=== PATIENT | male | born 1955 ===

== ENCOUNTER 2018-08-16 07:01 | Inpatient (IN) | payer OTHER ==
[2018-08-16 08:03] LABS: VENOUS BLOOD GAS BASE EXCESS -1.4 mmol/L (0.0-2.0); VENOUS BLOOD GAS PCO2 36 mmHg (40-60); VENOUS BLOOD GAS PO2 47 mm/Hg (30-55); VENOUS BLOOD PH 7.41 (7.32-7.43)
[2018-08-16] MEDS ORDERED: Iohexol 300 100 ML IJ ONE (08:10)
[2018-08-16] MEDS ORDERED: Sodium Chloride 0.9% 50 ML IV ONE (08:11)
[2018-08-16 08:15] LABS: BASO % 0.2 % (0.0-2.0); EOS % 0.4 % (0.0-4.0); HEMOGLOBIN 14.2 g/dL (12.0-18.0); LYMPH # 0.7 K/uL (1.0-4.3); LYMPH % 11.4 % (20.0-40.0); MEAN CORPUSCULAR HEMOGLOBIN 28.5 pg (27.0-31.0); MEAN CORPUSCULAR HGB CONC 32.7 g/dL (33.0-37.0); MEAN PLATELET VOLUME 8.9 fl (7.2-11.7); MONO # 0.1 K/uL (0.0-0.8); MONO % 1.4 % (0.0-10.0); NEUT # 5.2 K/uL (1.8-7.0); NEUT % 86.6 % (50.0-75.0); NRBC % 0.1 % (0.0-0.0); RBC 4.98 Mil/uL (4.40-5.90); RED CELL DISTRIBUTION WIDTH 16.3 % (11.5-14.5)
[2018-08-16 08:23] LABS: ALB/GLOB RATIO 1.2 (1.0-2.1); ALBUMIN 4.1 g/dL (3.5-5.0); ALT/SGPT 62 U/L (21-72); AST/SGOT 126 U/L (17-59); BLOOD UREA NITROGEN 18 mg/dl (9-20); CALCIUM 8.8 mg/dL (8.4-10.2); GFR NON-AFRICAN AMERICAN 56; LIPASE 105 U/L (23-300)
--- NOTE | 2018-08-16 08:24 | RAD ---
Date of service: 08/16/2018 HISTORY: Sepsis Patient COMPARISON: No prior. FINDINGS: LUNGS: No active pulmonary disease. PLEURA: No significant pleural effusion identified, no pneumothorax apparent. CARDIOVASCULAR: Calcific atherosclerotic changes are seen related to the thoracic aorta. Mild cardiomegaly not excluded. Increased hilar vascular markings as well as linear changes in the perihilar distributions are suspicious for [id number] pulmonary vascular congestion. Clinically correlate further. OSSEOUS STRUCTURES: No significant abnormalities. VISUALIZED UPPER ABDOMEN: Normal. OTHER FINDINGS: None. IMPRESSION: [id number] pulmonary vascular congestion suspected. No definite airspace disease bilaterally. Cardiomegaly not excluded.
[2018-08-16 08:26] LABS: INR 1.2; PROTHROMBIN TIME 13.8 Seconds (9.8-13.1)
[2018-08-16 08:28] LABS: PARTIAL THROMBOPLASTIN TIME 26.1 Seconds (25.6-37.1)
[2018-08-16] MEDS ORDERED: cefTRIAXone (Rocephin) 1 gm Inj ONE (08:33)
[2018-08-16 08:34] LABS: B-TYPE NATRIURETIC PEPTIDE 1900 pg/ml (0-900)
[2018-08-16] MEDS: Digoxin 500 mcg/2ml (0.5 mg/2ml) Inj IVP ONE ×2 (08:37→10:48)
--- NOTE | 2018-08-16 08:42 | CARD ---
APPROVED REPORT Date of service: 08/16/2018 EKG Measurement Heart [id number] <Conclusion> Atrial fibrillation with rapid ventricular response Baseline artifact Possible Anterolateral infarct, age undetermined Abnormal ECG
[2018-08-16] MEDS ORDERED: Piperacillin/Tazobact 3.375 GM in Sodium Chloride 0.9% 100 ML IVPB ONE (08:45)
[2018-08-16] MEDS ORDERED: Digoxin 500 mcg/2ml (0.5 mg/2ml) Inj IVP ONE (09:00)
[2018-08-16] MEDS ORDERED: Moxifloxacin IV 400mg/250ml NS 400 MG/250 ML BAG IVPB ONE (09:00)
--- NOTE | 2018-08-16 10:05 | CT ---
Date of service: 08/16/2018 PROCEDURE: CT Abdomen and Pelvis with contrast HISTORY: abdominal pain lower back pain COMPARISON: None. TECHNIQUE: Following the intravenous administration of iodinated contrast material, a CT examination of the abdomen and pelvis performed from the domes of the diaphragms to the symphysis pubis with reformatted datasets provided in axial, sagittal and coronal planes. Oral contrast was not administered as per referring physician request. Coronal and sagittal reformats were generated. Contrast dose: Omnipaque 300, 100 cc Radiation dose: Total exam DLP = 915.35 mGy-cm. This CT exam was performed using one or more of the following dose reduction techniques: Automated exposure control, adjustment of the mA and/or kV according to patient size, and/or use of iterative reconstruction technique. FINDINGS: LOWER THORAX: Cardiomegaly identified as well as a small hiatal hernia. Coronary artery atherosclerosis identified limited linear atelectasis or fibrosis in the left base. No infiltrate pleural or pericardial effusion identified. LIVER: Unremarkable. No gross lesion or definite ductal dilatation. GALLBLADDER AND BILE DUCTS: Gallbladder is distended with cholelithiasis at the dependent portion mildly. There is questionable pericholecystic fluid and cholecystitis is not excluded. PANCREAS: Unremarkable. No gross lesion or ductal dilatation. SPLEEN: Unremarkable. ADRENALS: Unremarkable. No mass. KIDNEYS AND URETERS: No radiodense urolithiasis, perinephric fluid collection or obstructive uropathy is appreciate bilaterally. The bilateral ureters appear normal caliber overall. Bilateral nonspecific streaky perinephric changes appear mild. VASCULATURE: Nonaneurysmal abdominal aortic calcific atherosclerotic changes are identified. BOWEL: Evaluation of the gastrointestinal tract is limited due to the lack of oral contrast administration. Stomach is mildly distend with retained fluid and air and otherwise appears unremarkable. There a few left colonic and cecal/ascending colon diverticula without acute inflammatory change. No bowel obstruction. No gross mural thickening. APPENDIX: Normal appendix. PERITONEUM: Unremarkable. No free fluid. No free air. LYMPH NODES: Unremarkable. No enlarged lymph nodes. BLADDER: Unremarkable. REPRODUCTIVE: Enlarged prostate gland. BONES: There is a mild compression fracture of L1 which is anteriorly wedged without retropulsed fracture fragment identified. This is an indeterminate fracture in terms of age. No additional fracture identified. No destructive bony lesion appreciated. OTHER FINDINGS: None. IMPRESSION: 1. A distended gallbladder is appreciated with cholelithiasis. Limited pericholecystic fluid suspected. Clinically correlate for possible cholecystitis. 2. Infrequent right and left colonic diverticula, no acute changes. 3. Enlarged prostate gland. 4. L1 anterior compression wedge compression fracture, age indeterminate.
[2018-08-16 10:11] LABS: URINE BILIRUBIN NEGATIVE (NEGATIVE); URINE BLOOD SMALL (NEGATIVE); URINE CLARITY SLIGHTY-CLOUDY (Clear); URINE COLOR AMBER (YELLOW); URINE GLUCOSE (UA) NEG (Normal); URINE LEUKOCYTE ESTERASE NEG Leu/uL (Negative); URINE PROTEIN 100 mg/dL (NEGATIVE)
[2018-08-16] MEDS ORDERED: Digoxin 500 mcg/2ml (0.5 mg/2ml) Inj ONE (10:17)
[2018-08-16] MEDS ORDERED: Piperacillin/Tazobact 3.375 gm Inj IVPB ONE (10:28)
[2018-08-16] MEDS ORDERED: Sodium Chloride 0.9% 1,000 ML IV STA (10:39)
--- NOTE | 2018-08-16 11:01 | CP.PCM.CON ---
History of Present Illness - History of Present Illness History of Present Illness: Surgery: Dr. Hodges CC: Abd pain HPI: 62M w. pmh of CHF, HTN, a-fib, DM presents to ED w. acute onset abd pain starting at 4AM. Pain is constant in epigastric area w. no alleviating or aggravating factors. Pt denies N/V/D, no changes in appetite. He does report fevers and chills and states that he is very thirsty. He has no CP/palpitations, no SOB/cough. PMH: above PSH: none Meds: MAR reviewed NKDA Social: no ETOH/tobacco/drugs Fhx: non-contributory Review of Systems - Review of Systems All systems: reviewed and no additional remarkable complaints except (hpi) Past Patient History - Past Social History Smoking Status: Never Smoked - CARDIAC Hx Cardiac Disorders: Yes Hx Hypercholesterolemia: Yes Hx Hypertension: Yes - PSYCHIATRIC Hx Substance Use: No - ANESTHESIA Hx Anesthesia: No Meds Allergies/Adverse Reactions: Allergies Allergy/AdvReac Type Severity Reaction Status Date / Time No Known Allergies Allergy Verified 08/16/18 10:39 - Medications Medications: Current Medications Sodium Chloride (Sodium Chloride 0.9%) 1,000 mls @ 1,000 mls/hr IV .Q1H STA Stop: 08/16/18 11:38 Last Admin: 08/16/18 10:45 Dose: 1,000 mls/hr Gentamicin Sulfate 80 mg/ (Sodium Chloride) 102 mls @ 100 mls/hr IVPB ONCE ONE; Protocol Stop: 08/16/18 12:01 Physical Exam - Constitutional Appears: Non-toxic, No Acute Distress - Head Exam Head Exam: ATRAUMATIC, NORMOCEPHALIC - Eye Exam Eye Exam: EOMI - ENT Exam ENT Exam: Mucous Membranes Moist - Neck Exam Neck exam: Positive for: Full Rom - Respiratory Exam Respiratory Exam: NORMAL BREATHING PATTERN. absent: Accessory Muscle Use, Respiratory Distress - Cardiovascular Exam Cardiovascular Exam: Tachycardia - GI/Abdominal Exam GI & Abdominal Exam: Soft, Tenderness (mild epigastric). absent: Distended, Firm, Guarding, Rebound, Rigid - Extremities Exam Extremities exam: Negative for: calf tenderness, pedal edema - Neurological Exam Neurological exam: Alert, Oriented x3 - Psychiatric Exam Psychiatric exam: Normal Affect, Normal Mood - Skin Skin Exam: Dry, Normal Color, Warm Results - Vital Signs Recent Vital Signs: Last Vital Signs Temp 102.6 F H 08/16/18 08:51 Pulse 153 H 08/16/18 08:29 Resp 20 08/16/18 08:29 BP 138/73 08/16/18 08:29 Pulse Ox 94 L 08/16/18 08:29 - Labs Result Diagrams: 08/16/18 07:50 08/16/18 07:50 Labs: Laboratory Results - last 24 hr 08/16/18 08/16/18 08/16/18 07:50 07:50 07:50 WBC 6.0 RBC 4.98 Hgb 14.2 Hct 43.3 MCV 87.0 MCH 28.5 MCHC 32.7 L RDW 16.3 H Plt Count 186 MPV 8.9 Neut % (Auto) 86.6 H Lymph % (Auto) 11.4 L [place] % (Auto) 1.4 Eos % (Auto) 0.4 Baso % (Auto) 0.2 Neut # (Auto) 5.2 Lymph # (Auto) 0.7 L [place] # (Auto) 0.1 Eos # (Auto) 0.0 Baso # (Auto) 0.0 PT 13.8 H INR 1.2 APTT 26.1 pO2 VBG pH VBG pCO2 VBG HCO3 VBG Total CO2 VBG O2 Sat (Calc) VBG Base Excess VBG Potassium Glucose Lactate FiO2 Blood Gas Comments Crit Value Called To Crit Value Called By Crit Value Read Back Blood Gas Notified Time Sodium 140 Potassium 4.3 Chloride 101 Carbon Dioxide 25 Anion Gap 18 BUN 18 Creatinine 1.3 Est GFR ( Amer) > 60 Est GFR (Non-Af Amer) 56 Random Glucose 173 H Calcium 8.8 Phosphorus 4.5 Magnesium 1.4 L Total Bilirubin 2.5 H AST 126 H ALT 62 Alkaline Phosphatase 155 H Troponin I 0.0150 NT-Pro-B Natriuret Pep 1900 H Total Protein 7.6 Albumin 4.1 Globulin 3.5 Albumin/Globulin Ratio 1.2 Lipase 105 Venous Blood Potassium Urine Color Urine Clarity Urine pH Ur Specific [place] Urine Protein Urine Glucose (UA) Urine Ketones Urine Blood Urine Nitrate Urine Bilirubin Urine Urobilinogen Ur Leukocyte Esterase Urine Microscopic WBC Digoxin Influenza Typ A,B (EIA) 08/16/18 08/16/18 08/16/18 07:56 08:00 08:10 WBC RBC Hgb Hct MCV MCH MCHC RDW Plt Count MPV Neut % (Auto) Lymph % (Auto) [place] % (Auto) Eos % (Auto) Baso % (Auto) Neut # (Auto) Lymph # (Auto) [place] # (Auto) Eos # (Auto) Baso # (Auto) PT INR APTT pO2 47 VBG pH 7.41 VBG pCO2 36 L VBG HCO3 23.4 VBG Total CO2 23.9 VBG O2 Sat (Calc) 85.7 H VBG Base Excess -1.4 L VBG Potassium 4.2 Glucose 175 H Lactate 4.6 H* FiO2 21.0 Blood Gas Comments Lac=4.6 Crit Value Called To terry Hamilton Crit Value Called By 22 Crit Value Read Back Y Blood Gas Notified Time 802 Sodium 137.0 Potassium Chloride 102.0 Carbon Dioxide Anion Gap BUN Creatinine Est GFR ( Amer) Est GFR (Non-Af Amer) Random Glucose Calcium Phosphorus Magnesium Total Bilirubin AST ALT Alkaline Phosphatase Troponin I NT-Pro-B Natriuret Pep Total Protein Albumin Globulin Albumin/Globulin Ratio Lipase Venous Blood Potassium 4.2 Urine Color H[place]en Urine Clarity Slighty-cloudy Urine pH 5.0 Ur Specific [place] 1.019 Urine Protein 100 Urine Glucose (UA) Neg Urine Ketones Negative Urine Blood Small Urine Nitrate Negative Urine Bilirubin Negative Urine Urobilinogen 4.0 Ur Leukocyte Esterase Neg Urine Microscopic WBC 3 Digoxin 0.4 L Influenza Typ A,B (EIA) 08/16/18 08:10 WBC RBC Hgb Hct MCV MCH MCHC RDW Plt Count MPV Neut % (Auto) Lymph % (Auto) [place] % (Auto) Eos % (Auto) Baso % (Auto) Neut # (Auto) Lymph # (Auto) [place] # (Auto) Eos # (Auto) Baso # (Auto) PT INR APTT pO2 VBG pH VBG pCO2 VBG HCO3 VBG Total CO2 VBG O2 Sat (Calc) VBG Base Excess VBG Potassium Glucose Lactate FiO2 Blood Gas Comments Crit Value Called To Crit Value Called By Crit Value Read Back Blood Gas Notified Time Sodium Potassium Chloride Carbon Dioxide Anion Gap BUN Creatinine Est GFR ( Amer) Est GFR (Non-Af Amer) Random Glucose Calcium Phosphorus Magnesium Total Bilirubin AST ALT Alkaline Phosphatase Troponin I NT-Pro-B Natriuret Pep Total Protein Albumin Globulin Albumin/Globulin Ratio Lipase Venous Blood Potassium Urine Color Urine Clarity Urine pH Ur Specific [place] Urine Protein Urine Glucose (UA) Urine Ketones Urine Blood Urine Nitrate Urine Bilirubin Urine Urobilinogen Ur Leukocyte Esterase Urine Microscopic WBC Digoxin Influenza Typ A,B (EIA) Negative for flu a/b - Imaging and Cardiology CT scan - abdomen Status: Image reviewed by me, Report reviewed by me US - abdomen Status: Image reviewed by me Assessment & Plan - Assessment and Plan (Free Text) Assessment: 62M w. abd sepsis, likely 2/2 cholangitis / cholecystitis -NPO -IVF -abx -strict Is:Os -lactate q4h until <2 -will order MRCP, spoke to radiology, tomorrow is the earlier this can be completed -Recommend GI for possible ERCP and IR for possible cholecystostomy tube -d/w attending Latesha PGY4
--- NOTE | 2018-08-16 11:13 | ED PDOC ---
HPI: Influenza Time Seen by Provider: 08/16/18 07:22 Chief Complaint: Abdominal Pain Chief Complaint (Provider): Fever and Chills History Per: Patient Exam Limitations: no limitations Onset/Duration Of Symptoms: Hrs (x3) Symptoms include: fever Additional complaint(s):: 62 year old male presents to the ED complaining of a subjective fever and chills since this morning around 05:00 associated with whole body shakes, lower back pain, and abdominal pain. Abdominal pain resolved in the ED. Denies chest pain, shortness of breath, vomiting, or diarrhea. Patient states he is complaint with medications. Patient has a history of atrial fibrillation, CHF, and Hypertension. He states he takes metoprolol and pradaxa for atrial fibrillation. Denies vomiting, diarrhea, urinary problems, or cough. PMD: Dr. Chinchilla Adjunct Instructor: Dr. Portillo Past Medical History Reviewed: Historical Data, Nursing Documentation, Vital Signs Vital Signs: Last Vital Signs Temp 102.6 F H 08/16/18 08:51 Pulse 130 H 08/16/18 10:30 Resp 18 08/16/18 10:30 BP 126/77 08/16/18 10:30 Pulse Ox 95 08/16/18 10:30 - Medical History PMH: Atrial Fibrillation, CAD, CHF, Diabetes, HTN, Hypercholesterolemia - Surgical History Surgical History: No Surg Hx - Family History Family History: States: Unknown Family Hx - Home Medications Home Medications: Ambulatory Orders Medication Instructions Recorded Dabigatran [Pradaxa] 75 mg PO DAILY 07/03/18 Digoxin [Lanoxin] 250 mcg PO DAILY 07/03/18 Empagliflozin [Jardiance] 10 mg PO DAILY 07/03/18 Glimepiride [amaRYL] 2 mg PO DAILY 07/03/18 Metoprolol Clark/Hydrochlorothiaz 100 mg PO DAILY 07/03/18 [Metoprolol ER-Hctz 100-12.5 mg] Potassium Chloride [Klor-Con M20] 20 meq PO DAILY 07/03/18 RX: Spironolactone [Aldactone] 25 mg PO DAILY 07/03/18 RX: Torsemide [Demadex] 20 mg PO DAILY 07/03/18 RX: amLODIPine [Norvasc] 10 mg PO DAILY 07/03/18 RX: cloNIDine 0.2 mg/24 hr 0.2 mg PO DAILY 07/03/18 [catapres-TTS2 0.2 mg/24 hr] Telmisartan/Hydrochlorothiazid 80 mg PO DAILY 07/03/18 [Micardis Hct 80-25 mg Tablet] metFORMIN [glucOPHAGE] 500 mg PO DAILY 07/03/18 - Allergies Allergies/Adverse Reactions: Allergies Allergy/AdvReac Type Severity Reaction Status Date / Time No Known Allergies Allergy Verified 08/16/18 10:39 Review of Systems ROS Statement: Except As Marked, All Systems Reviewed And Found Negative Constitutional: Positive for: Fever, Chills Cardiovascular: Negative for: Chest Pain Respiratory: Negative for: Cough, Shortness of Breath Gastrointestinal: Positive for: Abdominal Pain. Negative for: Vomiting, Diarrhea Genitourinary Male: Negative for: Dysuria, Hematuria Musculoskeletal: Positive for: Back Pain Physical Exam - Reviewed Nursing Documentation Reviewed: Yes Vital Signs Reviewed: Yes - Physical Exam Appears: Positive for: Uncomfortable Head Exam: Positive for: ATRAUMATIC, NORMOCEPHALIC Skin: Positive for: Normal Color, Warm, Dry Eye Exam: Positive for: Normal appearance, EOMI, PERRL ENT: Positive for: Normal ENT Inspection Neck: Positive for: Normal, Painless ROM Cardiovascular/Chest: Positive for: Tachycardia, Irregularly Irregular. Negative for: Murmur Respiratory: Positive for: Normal Breath Sounds, Other (Tachypnea) Gastrointestinal/Abdominal: Positive for: Soft, Tenderness (RUQ), Other (obese) Back: Positive for: Other (lower back tenderness). Negative for: L CVA Tenderness, R CVA Tenderness Rectal: Negative for: Blood Streaked Stool, Tenderness Extremity: Negative for: Pedal Edema, Swelling Medical Decision Making Medical Decision Making: Initial Impression: Fever, tachypnea, abdominal pain, back pain, tchycardia Differentials include UTI, kidney stones, possible gall bladder disease, sepsis Initial Plan: --VBG shock panel --CT abd/pelvis --ECG --BNP --CMP --Digoxin stat --Lipase stat --Magnesium stat --Phosphorous stat --Troponin stat --ED urine dipstick --CBC --Partial thromboplastin --Prothrombin time --Chest X-ray --Chest X-ray --MRI --Moxifloxacin 400mg IV --Gentamicin 80mg IV --Lanoxin 0.25mg IV --Sodium chloride 1000mL IV --Rocephin 1gm IV --Tylenol 325mg PO --Zosyn 3.375gm IV --Blood culture --Urine culture --Influenza A B stat --Urinalysis --Gall bladder US 11:12 Abdomen US FINDINGS: LIVER: Measures 20.2 cm in length. Normal echogenicity of the liver parenchyma. No mas s. No intrahepatic bile duct dilatation. GALLBLADDER: The gallbladder is distended with mural thickening identified ups of 0.0 mm. No definite pericholecystic fluid collection appreciated. Cholelithiasis is seen intermixed with sludge at the dependent portion of the neck and body mildly. There is a positive sonographic Holliday sign with findings suspicious for cholecystitis. COMMON BILE DUCT: Measures 3.6 mm. No stones. No dilatation. PANCREAS: Pancreas completely obscured by overlying bowel gas. RIGHT KIDNEY: Measures 13.5 cm in length. Normal echogenicity. No calculus, mass, or hydr onephrosis. AORTA: Obscured by bowel gas. IVC: Unremarkable. OTHER FINDINGS: None . IMPRESSION: 1. Gallbladder findings are suspicious for cholecystitis, generally concordant with findings from 08/16/2018 CT. Cholelithiasis and sludge are identified mildly within the lumen of the gallbladder. Clinically correlate further. No sonographic pattern of biliary tree dilatation as discussed above. 2. Pancreas not identified due to extensive overlying bowel gas with remainder of the examination otherwise unremarkable. 10:01 CT abd/pelvis FINDINGS: LOWER THORAX: Cardiomegaly identified as well as a small hiatal hernia. Coronary artery atherosclerosis identified limited linear atelectasis or fibrosis in the left base. No infiltrate pleural or pericardial effusion identified. LIVER: Unremarkable. No gross lesion or definite ductal dilatation. GALLBLADDER AND BILE DUCTS: Gallbladder is distended with cholelithiasis at the dependent portion mildly. There is questionable pericholecystic fluid and cholecystitis is not excluded. PANCREAS: Unremarkable. No gross lesion or ductal dilatation. SPLEEN: Unremarkable. ADRENALS: Unremarkable. No mass. KIDNEYS AND URETERS: No radiodense urolithiasis, perinephric fluid collection or obstructive uropathy is appreciate bilaterally. The bilateral ureters appear normal caliber overall. Bilateral nonspecific streaky perinephric changes appear mild. VASCULATURE: Nonaneurysmal abdominal aortic calcific atherosclerotic changes are identified. BOWEL: Evaluation of the gastrointestinal tract is limited due to the lack of oral contrast administration. Stomach is mildly distend with retained fluid and air and otherwise appears unremarkable. There a few left colonic and cecal/ascending colon diverticula without acute inflammatory change. No bowel obstruction. No gross mural thickening. APPENDIX: Normal appendix. PERITONEUM: Unremarkable. No free fluid. No free air. LYMPH NODES: Unremarkable. No enlarged lymph nodes. BLADDER: Unremarkable. REPRODUCTIVE: Enlarged prostate gland. BONES: There is a mild compression fracture of L1 which is anteriorly wedged without retropulsed fracture fragment identified. This is an indeterminate fracture in terms of age. No additional fracture identified. No destructive bony lesion appreciated. OTHER FINDINGS: None. IMPRESSION: 1. A distended gallbladder is appreciated with cholelithiasis. Limited pericholecystic fluid suspected. Clinically correlate for possible cholecystitis. 2. Infrequent right and left colonic diverticula, no acute changes. 3. Enlarged prostate gland. 4. L1 anterior compression wedge compression fracture, age indeterminate. 08:20 Chest X-ray FINDINGS: LUNGS: No active pulmonary disease. PLEURA: No significant pleural effusion identified, no pneumothorax apparent. CARDIOVASCULAR: Calcific atherosclerotic changes are seen related to the thoracic aorta. Mild cardiomegaly not excluded. Increased hilar vascular markings as well as linear changes in the perihilar distributions are suspicious for pyxy-ub-[id number] pulmonary vascular congestion. Clinically correlate further. OSSEOUS STRUCTURES: No significant abnormalities. VISUALIZED UPPER ABDOMEN: Normal. OTHER FINDINGS: None. IMPRESSION: Jtuz-op-[id number] pulmonary vascular congestion suspected. No definite airspace disease bilaterally. Cardiomegaly not excluded. 10:[address] Stanley, hospitalist, to admit patient under hospitalist service. Discussed case with Dr. Sher who is the welt stitch cleaner, for admission to the ICU. Discussed case with surgical scrub technician, Dr. Gamez, for a consult [facility] Michelle Maloney 11:[address] Portillo, junior web designer who recommends treating sepsis and new medications for AFIb RVR at this time. Dr. Gutierrez, metals analyst who will be on consult, and Dr. Beckwith, infectious diseases who recommends IV gentamycin. Scribe Attestation: Documented by Brennan Day acting as a scribe for Christiano Sherman MD. Provider Scribe Attestation: All medical record entries made by the Scribe were at my direction and personally dictated by me. I have reviewed the chart and agree that the record accurately reflects my personal performance of the history, physical exam, medical decision making, and the department course for this patient. I have also personally directed, reviewed, and agree with the discharge instructions and disposition. - Laboratory Results Result Diagrams: 08/16/18 07:50 08/16/18 07:50 - ECG ECG Rhythm: Positive for: Normal QRS, Atrial Fibrillation, ST/T Changes (Nonspecifc) Interpretation Of Abn EKG: RVR Rate: 153 O2 Sat by Pulse Oximetry: 95 (RA) Pulse Ox Interpretation: Normal - Critical Care Total Time (In Min): 120 Documented Critical Care: Time excludes all time spent performint seperately billable procedures Disposition - Clinical Impression Clinical Impression: Acute cholecystitis, Atrial fibrillation with RVR, CHF (congestive heart failure), Sepsis, Septic shock - Patient ED Disposition Is Patient to be Admitted: Yes Discussed With : Magali Stanley Doctor Will See Patient In The: ED Counseled Patient/Family Regarding: Studies Performed, Diagnosis - Disposition Disposition Time: 09:00 Condition: CRITICAL - Pt Status Changed To: Hospital Disposition Of: Inpatient - Admit Certification Admit to Inpatient:: After my assessment, the patient will require hospitalization for at least two midnights. This is because of the severity of symptoms shown, intensity of services needed, and/or the medical risk in this patient being treated as an outpatient. - POA Present On Arrival: Poor Glycemic Control
--- NOTE | 2018-08-16 11:15 | US ---
Date of service: 08/16/2018 HISTORY: ruq pain fever COMPARISON: None. TECHNIQUE: Sonographic evaluation of the right upper quadrant of the abdomen. FINDINGS: LIVER: Measures 20.2 cm in length. Normal echogenicity of the liver parenchyma. No mass. No intrahepatic bile duct dilatation. GALLBLADDER: The gallbladder is distended with mural thickening identified ups of 0.0 mm. No definite pericholecystic fluid collection appreciated. Cholelithiasis is seen intermixed with sludge at the dependent portion of the neck and body mildly. There is a positive sonographic Holliday sign with findings suspicious for cholecystitis. COMMON BILE DUCT: Measures 3.6 mm. No stones. No dilatation. PANCREAS: Pancreas completely obscured by overlying bowel gas. RIGHT KIDNEY: Measures 13.5 cm in length. Normal echogenicity. No calculus, mass, or hydronephrosis. AORTA: Obscured by bowel gas. IVC: Unremarkable. OTHER FINDINGS: None . IMPRESSION: 1. Gallbladder findings are suspicious for cholecystitis, generally concordant with findings from 08/16/2018 CT. Cholelithiasis and sludge are identified mildly within the lumen of the gallbladder. Clinically correlate further. No sonographic pattern of biliary tree dilatation as discussed above. 2. Pancreas not identified due to extensive overlying bowel gas with remainder of the examination otherwise unremarkable.
[2018-08-16 11:27] LABS: VENOUS BLOOD GAS BASE EXCESS 0.7 mmol/L (0.0-2.0); VENOUS BLOOD GAS PCO2 35 mmHg (40-60); VENOUS BLOOD GAS PO2 58 mm/Hg (30-55); VENOUS BLOOD PH 7.45 (7.32-7.43)
--- NOTE | 2018-08-16 11:43 | CP.PCM.CON ---
History of Present Illness - History of Present Illness History of Present Illness: I saw the patient in ER , for ICU evaluation. Reviewed, his labs, EKG, CT abdomen report and reviewed CXR film. Also d/w Er physicians and admitting Hospitalist. Pt is a 62 YOM with h/o A fib, HTN, DM, who otherwise has been active and has veen working until yesterday but came to ER this morning due to Rt sided abdominal pain with started this morning, he had low grade fever but denied chills, n/v/d, SOB or CP. In ER his vitals were stable with BP 133/70 with a fib and VR around 120, Ox sat 100% on RA. Pt was comfortable when I examined, Labs revealed no leukocytosis but had high Lactic acid of 4.0 and Child Caregiver: 13. with no metabolic acidosis , bicarb [address] abdomen showed gallstone and pt likely had cholecystitis. Received IVF, antibiotics, after cultures were drawn in ER. Pt is hemodynamically stable, and packer snot need ICU admission and tele monitoring is recommended. D/w Dr. Ritchie, hospitalist and we agreed to admit the pt to tele. Review of Systems - Constitutional Constitutional: As Per HPI, Fever - EENT Eyes: As Per HPI Ears: As Per HPI - Cardiovascular Cardiovascular: As Per HPI, Rapid Heart Rate - Respiratory Respiratory: As Per HPI - Gastrointestinal Gastrointestinal: Abdominal Pain - Genitourinary Genitourinary: As Per HPI Past Patient History - Past Social History Smoking Status: Never Smoked - CARDIAC Hx Atrial Fibrillation: Yes Hx Congestive Heart Failure: Yes Hx Hypercholesterolemia: Yes Hx Hypertension: Yes - PSYCHIATRIC Hx Substance Use: No - ANESTHESIA Hx Anesthesia: No Meds Allergies/Adverse Reactions: Allergies Allergy/AdvReac Type Severity Reaction Status Date / Time No Known Allergies Allergy Verified 08/16/18 10:39 - Medications Medications: Current Medications Sodium Chloride (Sodium Chloride 0.9%) 1,000 mls @ 1,000 mls/hr IV .Q1H STA Stop: 08/16/18 11:38 Last Admin: 08/16/18 10:45 Dose: 1,000 mls/hr Gentamicin Sulfate 80 mg/ (Sodium Chloride) 102 mls @ 100 mls/hr IVPB ONCE ONE; Protocol Stop: 08/16/18 12:01 Physical Exam - Head Exam Head Exam: ATRAUMATIC - Eye Exam Pupil Exam: NORMAL ACCOMODATION - Neck Exam Neck exam: Positive for: Normal Inspection - Respiratory Exam Respiratory Exam: NORMAL BREATHING PATTERN - Cardiovascular Exam Cardiovascular Exam: Tachycardia, Irregular Rhythm - GI/Abdominal Exam GI & Abdominal Exam: Tenderness - Rectal Exam Rectal Exam: Deferred Results - Vital Signs Recent Vital Signs: Last Vital Signs Temp 102.6 F H 08/16/18 08:51 Pulse 153 H 08/16/18 11:34 Resp 18 08/16/18 10:30 BP 126/77 08/16/18 10:30 Pulse Ox 95 08/16/18 11:34 - Labs Result Diagrams: 08/16/18 07:50 08/16/18 07:50 Labs: Laboratory Results - last 24 hr 08/16/18 08/16/18 08/16/18 07:50 07:50 07:50 WBC 6.0 RBC 4.98 Hgb 14.2 Hct 43.3 MCV 87.0 MCH 28.5 MCHC 32.7 L RDW 16.3 H Plt Count 186 MPV 8.9 Neut % (Auto) 86.6 H Lymph % (Auto) 11.4 L [place] % (Auto) 1.4 Eos % (Auto) 0.4 Baso % (Auto) 0.2 Neut # (Auto) 5.2 Lymph # (Auto) 0.7 L [place] # (Auto) 0.1 Eos # (Auto) 0.0 Baso # (Auto) 0.0 PT 13.8 H INR 1.2 APTT 26.1 pO2 VBG pH VBG pCO2 VBG HCO3 VBG Total CO2 VBG O2 Sat (Calc) VBG Base Excess VBG Potassium Glucose Lactate FiO2 Blood Gas Comments Crit Value Called To Crit Value Called By Crit Value Read Back Blood Gas Notified Time Sodium 140 Potassium 4.3 Chloride 101 Carbon Dioxide 25 Anion Gap 18 BUN 18 Creatinine 1.3 Est GFR ( Amer) > 60 Est GFR (Non-Af Amer) 56 Random Glucose 173 H Calcium 8.8 Phosphorus 4.5 Magnesium 1.4 L Total Bilirubin 2.5 H AST 126 H ALT 62 Alkaline Phosphatase 155 H Troponin I 0.0150 NT-Pro-B Natriuret Pep 1900 H Total Protein 7.6 Albumin 4.1 Globulin 3.5 Albumin/Globulin Ratio 1.2 Lipase 105 Venous Blood Potassium Urine Color Urine Clarity Urine pH Ur Specific [place] Urine Protein Urine Glucose (UA) Urine Ketones Urine Blood Urine Nitrate Urine Bilirubin Urine Urobilinogen Ur Leukocyte Esterase Urine Microscopic WBC Digoxin Influenza Typ A,B (EIA) 08/16/18 08/16/18 08/16/18 07:56 08:00 08:10 WBC RBC Hgb Hct MCV MCH MCHC RDW Plt Count MPV Neut % (Auto) Lymph % (Auto) [place] % (Auto) Eos % (Auto) Baso % (Auto) Neut # (Auto) Lymph # (Auto) [place] # (Auto) Eos # (Auto) Baso # (Auto) PT INR APTT pO2 47 VBG pH 7.41 VBG pCO2 36 L VBG HCO3 23.4 VBG Total CO2 23.9 VBG O2 Sat (Calc) 85.7 H VBG Base Excess -1.4 L VBG Potassium 4.2 Glucose 175 H Lactate 4.6 H* FiO2 21.0 Blood Gas Comments Lac=4.6 Crit Value Called To terry Hamilton Crit Value Called By 22 Crit Value Read Back Y Blood Gas Notified Time 802 Sodium 137.0 Potassium Chloride 102.0 Carbon Dioxide Anion Gap BUN Creatinine Est GFR ( Amer) Est GFR (Non-Af Amer) Random Glucose Calcium Phosphorus Magnesium Total Bilirubin AST ALT Alkaline Phosphatase Troponin I NT-Pro-B Natriuret Pep Total Protein Albumin Globulin Albumin/Globulin Ratio Lipase Venous Blood Potassium 4.2 Urine Color [place] Urine Clarity Slighty-cloudy Urine pH 5.0 Ur Specific [place] 1.019 Urine Protein 100 Urine Glucose (UA) Neg Urine Ketones Negative Urine Blood Small Urine Nitrate Negative Urine Bilirubin Negative Urine Urobilinogen 4.0 Ur Leukocyte Esterase Neg Urine Microscopic WBC 3 Digoxin 0.4 L Influenza Typ A,B (EIA) 08/16/18 08/16/18 08:10 11:22 WBC RBC Hgb Hct MCV MCH MCHC RDW Plt Count MPV Neut % (Auto) Lymph % (Auto) [place] % (Auto) Eos % (Auto) Baso % (Auto) Neut # (Auto) Lymph # (Auto) [place] # (Auto) Eos # (Auto) Baso # (Auto) PT INR APTT pO2 58 H VBG pH 7.45 H VBG pCO2 35 L VBG HCO3 25.3 VBG Total CO2 25.4 VBG O2 Sat (Calc) 92.9 H VBG Base Excess 0.7 VBG Potassium 3.3 L Glucose 105 Lactate 1.8 FiO2 21.0 Blood Gas Comments Crit Value Called To Crit Value Called By Crit Value Read Back Blood Gas Notified Time Sodium 136.0 Potassium Chloride 103.0 Carbon Dioxide Anion Gap BUN Creatinine Est GFR ( Amer) Est GFR (Non-Af Amer) Random Glucose Calcium Phosphorus Magnesium Total Bilirubin AST ALT Alkaline Phosphatase Troponin I NT-Pro-B Natriuret Pep Total Protein Albumin Globulin Albumin/Globulin Ratio Lipase Venous Blood Potassium 3.3 L Urine Color Urine Clarity Urine pH Ur Specific [place] Urine Protein Urine Glucose (UA) Urine Ketones Urine Blood Urine Nitrate Urine Bilirubin Urine Urobilinogen Ur Leukocyte Esterase Urine Microscopic WBC Digoxin Influenza Typ A,B (EIA) Negative for flu a/b Assessment & Plan - Assessment and Plan (Free Text) Assessment: Assessment : Abdominal pain, likely cholecystitis A fib HTN DM Pt is hemodynamically stable and was asymptomatic when I examined him in room 24 in ER Plan; as d/w ER physician and hospitalist, patient does not need ICU admission, can be admitted to tele, surgical evalaution. If condition changed and there is a reason for re-evaluation for ICU transfer, we will be glad to see and examine the patient again.
--- NOTE | 2018-08-16 11:43 | CP.PCM.HP ---
History of Present Illness - History of Present Illness History of Present Illness: Pt is a 62 yo male with PMH of A.fib with RVR, HTN, CHF, DM2, hyperlipidemia, presented to ER due to Epigastric/LUQ pain that started today at 4:30. Patient state he woke up due to severe pain on epigastric/ LUQ rate it 10 out of 10 with SOB, but no nausea, vomiting or diarrhea. Patient also state he felt fever but did not check his temperature. Patient went to the bathroom and he noted stool looked pale, otherwise he denies dizziness, confusion, chest pain, abdominal pain, diarrhea, constipation, dysuria or polyuria. No allergy PCP: DR. Chinchilla Cardio: Dr Zapien PMH as mentioned PSH: None Social: denies smoke, drink or drug use. ROS: all negative except what mentioned in HPI And chronic back pain due to old fracture. Upon arrival to ED Vitals t:102.6, hr 125, 111/67 bp, 18 RR, 96 HR CBC ASt/ALT 126/62, Pro BNP 65658 ABG + for lactic acid 4.6 M.4, Lipase 104, troponin 0.0150 (negative) Influenza A and B negative. CT:Distended gallbladder with cholelithaisis, limited pericholecystic fluid suspected Possible cholecystitis. + R and L diverticula, Enlargre prostate gland and L1 anterior compresssion fracture, age indeterminate. RUQ US: + Cholecystitis, cholelithiasis and sludge identified within the lumen of gallbladder Chest X-ray: mild-moderate pulmonary vascular congestion, no definite airspace disease b/l. Cardiomegaly not excluded EKG: Afib with RVR UA/UC, BLood culture were sent Surgery, ID, Cardiology, and GI was consulted, awaiting for recommendation Patient recieved: Digoxin IV Moxifloxacin 400mg iv gentamicine 80mg iv Zosyn 3.375mg IV lanoxin 0.25mg iv NaCl 1000ml iv Rocephin 1gm IV Tylenol for pain Patient was worked for ICU, and due to patient stable, and lactic acid normalized patient did not meet criteria for ICU admission. Patient was admitted to Telemetry for further treatment of Sepsis. Present on Admission - Present on Admission Any Indicators Present on Admission: No Past Patient History - Past Social History Smoking Status: Never Smoked - CARDIAC Hx Atrial Fibrillation: Yes Hx Congestive Heart Failure: Yes Hx Hypercholesterolemia: Yes Hx Hypertension: Yes - PSYCHIATRIC Hx Substance Use: No - ANESTHESIA Hx Anesthesia: No Meds Allergies/Adverse Reactions: Allergies Allergy/AdvReac Type Severity Reaction Status Date / Time No Known Allergies Allergy Verified 08/16/18 10:39 Physical Exam - Constitutional Appears: Well, Non-toxic, No Acute Distress - Head Exam Head Exam: ATRAUMATIC, NORMAL INSPECTION, NORMOCEPHALIC - Eye Exam Eye Exam: EOMI, Normal appearance, PERRL Pupil Exam: NORMAL ACCOMODATION, PERRL - ENT Exam ENT Exam: Mucous Membranes Moist, Normal Exam - Neck Exam Neck exam: Positive for: Normal Inspection - Respiratory Exam Respiratory Exam: Clear to Auscultation Bilateral, NORMAL BREATHING PATTERN - Cardiovascular Exam Cardiovascular Exam: Tachycardia, Irregular Rhythm - GI/Abdominal Exam GI & Abdominal Exam: Normal Bowel Sounds, Soft Additional comments: Mild tenderness upon deep palpation of the LUQ, no tenderness on RUQ, muprhy negative - Extremities Exam Extremities exam: Positive for: normal inspection - Back Exam Back exam: NORMAL INSPECTION - Neurological Exam Neurological exam: Alert, Reflexes Normal - Psychiatric Exam Psychiatric exam: Normal Affect, Normal Mood - Skin Skin Exam: Dry, Intact, Normal Color, Warm Results - Vital Signs Recent Vital Signs: Last Vital Signs Temp 102.6 F H 08/16/18 08:51 Pulse 153 H 08/16/18 11:34 Resp 18 08/16/18 10:30 BP 126/77 08/16/18 10:30 Pulse Ox 95 08/16/18 11:34 - Labs Result Diagrams: 08/16/18 07:50 08/16/18 07:50 Labs: Laboratory Results - last 24 hr 08/16/18 08/16/18 08/16/18 07:50 07:50 07:50 WBC 6.0 RBC 4.98 Hgb 14.2 Hct 43.3 MCV 87.0 MCH 28.5 MCHC 32.7 L RDW 16.3 H Plt Count 186 MPV 8.9 Neut % (Auto) 86.6 H Lymph % (Auto) 11.4 L [place] % (Auto) 1.4 Eos % (Auto) 0.4 Baso % (Auto) 0.2 Neut # (Auto) 5.2 Lymph # (Auto) 0.7 L [place] # (Auto) 0.1 Eos # (Auto) 0.0 Baso # (Auto) 0.0 PT 13.8 H INR 1.2 APTT 26.1 pO2 VBG pH VBG pCO2 VBG HCO3 VBG Total CO2 VBG O2 Sat (Calc) VBG Base Excess VBG Potassium Glucose Lactate FiO2 Blood Gas Comments Crit Value Called To Crit Value Called By Crit Value Read Back Blood Gas Notified Time Sodium 140 Potassium 4.3 Chloride 101 Carbon Dioxide 25 Anion Gap 18 BUN 18 Creatinine 1.3 Est GFR ( Amer) > 60 Est GFR (Non-Af Amer) 56 Random Glucose 173 H Calcium 8.8 Phosphorus 4.5 Magnesium 1.4 L Total Bilirubin 2.5 H AST 126 H ALT 62 Alkaline Phosphatase 155 H Troponin I 0.0150 NT-Pro-B Natriuret Pep 1900 H Total Protein 7.6 Albumin 4.1 Globulin 3.5 Albumin/Globulin Ratio 1.2 Lipase 105 Venous Blood Potassium Urine Color Urine Clarity Urine pH Ur Specific [place] Urine Protein Urine Glucose (UA) Urine Ketones Urine Blood Urine Nitrate Urine Bilirubin Urine Urobilinogen Ur Leukocyte Esterase Urine Microscopic WBC Digoxin Influenza Typ A,B (EIA) 08/16/18 08/16/18 08/16/18 07:56 08:00 08:10 WBC RBC Hgb Hct MCV MCH MCHC RDW Plt Count MPV Neut % (Auto) Lymph % (Auto) [place] % (Auto) Eos % (Auto) Baso % (Auto) Neut # (Auto) Lymph # (Auto) [place] # (Auto) Eos # (Auto) Baso # (Auto) PT INR APTT pO2 47 VBG pH 7.41 VBG pCO2 36 L VBG HCO3 23.4 VBG Total CO2 23.9 VBG O2 Sat (Calc) 85.7 H VBG Base Excess -1.4 L VBG Potassium 4.2 Glucose 175 H Lactate 4.6 H* FiO2 21.0 Blood Gas Comments Lac=4.6 Crit Value Called To terry Hamilton Crit Value Called By 22 Crit Value Read Back Y Blood Gas Notified Time 802 Sodium 137.0 Potassium Chloride 102.0 Carbon Dioxide Anion Gap BUN Creatinine Est GFR ( Amer) Est GFR (Non-Af Amer) Random Glucose Calcium Phosphorus Magnesium Total Bilirubin AST ALT Alkaline Phosphatase Troponin I NT-Pro-B Natriuret Pep Total Protein Albumin Globulin Albumin/Globulin Ratio Lipase Venous Blood Potassium 4.2 Urine Color [place] Urine Clarity Slighty-cloudy Urine pH 5.0 Ur Specific [place] 1.019 Urine Protein 100 Urine Glucose (UA) Neg Urine Ketones Negative Urine Blood Small Urine Nitrate Negative Urine Bilirubin Negative Urine Urobilinogen 4.0 Ur Leukocyte Esterase Neg Urine Microscopic WBC 3 Digoxin 0.4 L Influenza Typ A,B (EIA) 08/16/18 08/16/18 08:10 11:22 WBC RBC Hgb Hct MCV MCH MCHC RDW Plt Count MPV Neut % (Auto) Lymph % (Auto) [place] % (Auto) Eos % (Auto) Baso % (Auto) Neut # (Auto) Lymph # (Auto) [place] # (Auto) Eos # (Auto) Baso # (Auto) PT INR APTT pO2 58 H VBG pH 7.45 H VBG pCO2 35 L VBG HCO3 25.3 VBG Total CO2 25.4 VBG O2 Sat (Calc) 92.9 H VBG Base Excess 0.7 VBG Potassium 3.3 L Glucose 105 Lactate 1.8 FiO2 21.0 Blood Gas Comments Crit Value Called To Crit Value Called By Crit Value Read Back Blood Gas Notified Time Sodium 136.0 Potassium Chloride 103.0 Carbon Dioxide Anion Gap BUN Creatinine Est GFR ( Amer) Est GFR (Non-Af Amer) Random Glucose Calcium Phosphorus Magnesium Total Bilirubin AST ALT Alkaline Phosphatase Troponin I NT-Pro-B Natriuret Pep Total Protein Albumin Globulin Albumin/Globulin Ratio Lipase Venous Blood Potassium 3.3 L Urine Color Urine Clarity Urine pH Ur Specific [place] Urine Protein Urine Glucose (UA) Urine Ketones Urine Blood Urine Nitrate Urine Bilirubin Urine Urobilinogen Ur Leukocyte Esterase Urine Microscopic WBC Digoxin Influenza Typ A,B (EIA) Negative for flu a/b Assessment & Plan - Assessment and Plan (Free Text) Assessment: Pt is a 62 yo male with PMH of A.fib with RVR, HTN, CHF, DM2, hyperlipidemia, presented to ER due to Epigastric/LUQ pain that started today at 4:30. Upon arrival patient had fever, tachycardic and high lactic acid with + acute cholysestites with possible infiltrate; Patient is admitted to telemetry for sepsis treatment. CT:Distended gallbladder with cholelithaisis, limited pericholecystic fluid suspected Possible cholecystitis. + R and L diverticula, Enlargre prostate gland and L1 anterior compresssion fracture, age indeterminate. RUQ US: + Cholecystitis, cholelithiasis and sludge identified within the lumen of gallbladder Chest X-ray: mild-moderate pulmonary vascular congestion, no definite airspace disease b/l. Cardiomegaly not excluded 1) Sepsis T:102.6, hr 125, 111/67 bp, 18 RR, 96 HR lactic acid: 4.2 -> 1.8 + acute cholecystitis with possible Left lower lobe lung infiltrate admit to telemetry IV fluid bolus given, maintenance fluid is on hold due patient CHF ID Is on case, follow up recommendation Continue Abx Gentamicin 100mg Q8 day 1 2) acute cholecystitis Abdominal pain Ct scan and RUQ US: + for cholecystitis F/U GI recommendation As per surgery recommendation: -strict Is:Os -IVF MRCP ordered,f/u result Recommend GI for possible ERCP and IR for possible cholecystostomy tube Will Put NPO at 00:00 08/17/18 3) possible pneumonia + infiltrate Febrile 102.6 Possible infiltrate as per chest xray Influenza A and B negative. Pneumonia covered by sepsis abx. 4) CHF Compensated, elevated Probnp possible due to sepsis F/U echo F/U cardiology consult 5) Afib with RVR Chronic Patient was on Pradaxa 75mg at home, will switch lovenex 110mg bid for a therapeutic use Consult to cardiology 6) HTN Chronic, controlled Continue home medication 7) DM2 Chronic, controlled Continue home medication 8) Hyperlipidemia Chronic, Controlled Continue home medication 9) DVT prophylaxis SCD Therapeutic Lovenex 110 bid dose for A fib with RVR
[2018-08-16] MEDS ORDERED: METOPROLOL SU PO SCH (12:00)
[2018-08-16] MEDS ORDERED: Digoxin 250 mcg (0.25 mg) Tab PO SCH (12:00)
[2018-08-16] MEDS ORDERED: GlipiZIDE 5 mg SR Tab PO SCH (12:00)
[2018-08-16] MEDS ORDERED: HYDROCHLOROTHIAZ PO SCH (12:00)
[2018-08-16] MEDS ORDERED: Potassium Chloride 20 mEq ER Tab PO SCH (12:00)
[2018-08-16] MEDS ORDERED: [UNRECOGNIZED DRUG - OTHER] PO SCH (12:00)
[2018-08-16] MEDS ORDERED: HCTZ/Losartan 12.5/50 Tab PO SCH (12:00)
[2018-08-16] MEDS ORDERED: Dextrose 50% SYRINGE Inj (50 ml) IV PRN ×2 (12:09→15:41)
[2018-08-16] MEDS ORDERED: Glucagon Recombinant 1 mg Inj IM PRN ×2 (12:09→15:41)
[2018-08-16] MEDS ORDERED: Gentamicin 80 mg/2mL Inj. ONE (12:50)
[2018-08-16] MEDS ORDERED: Enoxaparin 80 mg Syringe SC SCH (13:30)
[2018-08-16 14:26] LABS: ABG ALLEN TEST YES; ARTERIAL BLOOD GAS O2 SAT 98.2 % (95-98); ARTERIAL BLOOD GAS PCO2 34 mm/Hg (35-45); ARTERIAL BLOOD GAS PH 7.43 (7.35-7.45); ARTERIAL BLOOD GAS PO2 82 mm/Hg (80-100); ARTERIAL BLOOD GAS TCO2 23.6 mmol/L (22-28)
[2018-08-16] MEDS ORDERED: Pneumococcal 23-Valent Vaccine IM ONE (15:40)
[2018-08-16] MEDS ORDERED: Influenza Vaccine (5 YR UP)/PF 60 MCG/0.5 ML SYR IM ONE (15:41)
[2018-08-16] MEDS: Insulin Lispro (humaLOG) 100 Units/ml Inj SC SCH ×2 (16:38→22:13)
[2018-08-16] MEDS: Sodium Chloride 0.9% 1,000 ML IV SCH (16:40)
[2018-08-16] MEDS: Ranolazine 500 mg Extended Release Tablets PO SCH (16:40)
[2018-08-16] MEDS ORDERED: DEXTROSE 5% IVPB SCH (16:45)
[2018-08-16] MEDS ORDERED: WATER IVPB SCH (16:45)
[2018-08-16] MEDS ORDERED: AMIKACIN IVPB SCH (16:45)
--- NOTE | 2018-08-16 16:48 | CP.PCM.PN ---
Subjective - Date & Time of Evaluation Date of Evaluation: 08/16/18 Time of Evaluation: 16:45 - Subjective Subjective: ID NOTE PATIENT EXAMINED ,CHART REVIEWED ACUTE CHOLECYSTITIS CONTINUE ZOSYN DISCINTINUE GENTAMICIN & START AMIKACIN IN AM FOLLOW RENAL FUNCTIONS SURGERY TO FOLLOW Objective - Vital Signs/Intake and Output Vital Signs (last 24 hours): Temp Pulse Resp BP Pulse Ox 97.9 F 82 15 114/61 94 L 08/16/18 16:00 08/16/18 16:00 08/16/18 16:00 08/16/18 16:00 08/16/18 16:00 - Medications Medications: Current Medications Amlodipine Besylate (Norvasc) 10 mg PO DAILY [facility] Last Admin: 08/16/18 13:04 Dose: 10 mg Atorvastatin Calcium (Lipitor) 20 mg PO HS [facility] Carvedilol (Coreg) 25 mg PO Q12 [facility] Dextrose (Dextrose 50% Inj) 0 ml IV STAT PRN; Protocol PRN Reason: Hypoglycemia Protocol Dextrose (Glutose 15) 0 gm PO ONCE PRN; Protocol PRN Reason: Hypoglycemia Protocol Dextrose (Dextrose 50% Inj) 0 ml IV STAT PRN; Protocol PRN Reason: Hypoglycemia Protocol Dextrose (Glutose 15) 0 gm PO ONCE PRN; Protocol PRN Reason: Hypoglycemia Protocol Digoxin (Lanoxin) 0.25 mg PO DAILY [facility] Enoxaparin Sodium (Lovenox) 110 mg SC Q12 [facility]; Protocol Glipizide (Glucotrol Xl) 5 mg PO DAILY [facility] Last Admin: 08/16/18 13:03 Dose: 5 mg Glucagon (Glucagen Diagnostic Kit) 0 mg IM STAT PRN; Protocol PRN Reason: Hypoglycemia Protocol Glucagon (Glucagen Diagnostic Kit) 0 mg IM STAT PRN; Protocol PRN Reason: Hypoglycemia Protocol Sodium Chloride (Sodium Chloride 0.9%) 1,000 mls @ 80 mls/hr IV .[id number] [facility] Stop: 08/17/18 15:03 Last Admin: 08/16/18 16:40 Dose: 80 mls/hr Piperacillin Sod/Tazobactam (Sod 4.5 gm/ Sodium Chloride) 100 mls @ 100 mls/hr IVPB Q8 [facility]; Protocol Azithromycin 500 mg/ Sodium (Chloride) 250 mls @ 250 mls/hr IVPB DAILY [facility]; Protocol Insulin Human Lispro (Humalog) 0 units SC ACHS [facility]; Protocol Last Admin: 08/16/18 16:38 Dose: 2 unit Metformin HCl (Glucophage) 500 mg PO DAILY [facility] Last Admin: 08/16/18 13:07 Dose: 500 mg Ranolazine (Ranexa) 500 mg PO BID [facility] Last Admin: 08/16/18 16:40 Dose: 500 mg Spironolactone (Aldactone) 25 mg PO DAILY [facility] Last Admin: 08/16/18 12:59 Dose: 25 mg Torsemide (Demadex) 20 mg PO DAILY [facility] Last Admin: 08/16/18 13:03 Dose: 20 mg - Labs Labs: 08/16/18 07:50 08/16/18 07:50 PT 13.8 Seconds (9.8-13.1) H 08/16/18 07:50 INR 1.2 08/16/18 07:50 APTT 26.1 Seconds (25.6-37.1) 08/16/18 07:50
[2018-08-16] MEDS: Piperacillin/Tazobact 4.5 GM in Sodium Chloride 0.9% 100 ML IVPB SCH (17:32)
[2018-08-16 19:15] LABS: ABG ALLEN TEST YES; ARTERIAL BLOOD GAS HCO3 24.9 mmol/L (21-28); ARTERIAL BLOOD GAS O2 SAT 95.5 % (95-98); ARTERIAL BLOOD GAS PCO2 34 mm/Hg (35-45); ARTERIAL BLOOD GAS PH 7.45 (7.35-7.45); ARTERIAL BLOOD GAS PO2 64 mm/Hg (80-100); ARTERIAL BLOOD GAS TCO2 24.6 mmol/L (22-28)
--- NOTE | 2018-08-16 21:36 | CP.PCM.CON ---
History of Present Illness - History of Present Illness History of Present Illness: 62 yo male admitted with fever and abdominal pain x 1 day. More left sided. Associated wth elevated LFTs. Review of Systems - Constitutional Constitutional: Chills - EENT Eyes: absent: Blurred Vision Ears: absent: Decreased Hearing Nose/Mouth/Throat: absent: Epistaxis - Cardiovascular Cardiovascular: absent: Chest Pain - Respiratory Respiratory: absent: Cough - Gastrointestinal Gastrointestinal: As Per HPI - Genitourinary Genitourinary: absent: Change in Urinary Stream Past Patient History - Past Social History Smoking Status: Never Smoked - CARDIAC Hx Cardiac Disorders: Yes (A fib; CAD; CHF;) - ENDOCRINE/METABOLIC Hx Endocrine Disorders: (DM; Dyslipidemia) - HEMATOLOGICAL/ONCOLOGICAL Hx AIDS: No Hx Human Immunodeficiency Virus (HIV): No - MUSCULOSKELETAL/RHEUMATOLOGICAL Hx Falls: No - PSYCHIATRIC Hx Substance Use: No - ANESTHESIA Hx Anesthesia: No Meds Allergies/Adverse Reactions: Allergies Allergy/AdvReac Type Severity Reaction Status Date / Time No Known Allergies Allergy Verified 08/16/18 10:39 - Medications Medications: Current Medications Amlodipine Besylate (Norvasc) 10 mg PO DAILY [facility] Last Admin: 08/16/18 13:04 Dose: 10 mg Atorvastatin Calcium (Lipitor) 20 mg PO HS [facility] Carvedilol (Coreg) 25 mg PO Q12 [facility] Dextrose (Dextrose 50% Inj) 0 ml IV STAT PRN; Protocol PRN Reason: Hypoglycemia Protocol Dextrose (Glutose 15) 0 gm PO ONCE PRN; Protocol PRN Reason: Hypoglycemia Protocol Dextrose (Dextrose 50% Inj) 0 ml IV STAT PRN; Protocol PRN Reason: Hypoglycemia Protocol Dextrose (Glutose 15) 0 gm PO ONCE PRN; Protocol PRN Reason: Hypoglycemia Protocol Digoxin (Lanoxin) 0.25 mg PO DAILY [facility] Enoxaparin Sodium (Lovenox) 110 mg SC Q12 [facility]; Protocol Glipizide (Glucotrol Xl) 5 mg PO DAILY [facility] Last Admin: 08/16/18 13:03 Dose: 5 mg Glucagon (Glucagen Diagnostic Kit) 0 mg IM STAT PRN; Protocol PRN Reason: Hypoglycemia Protocol Glucagon (Glucagen Diagnostic Kit) 0 mg IM STAT PRN; Protocol PRN Reason: Hypoglycemia Protocol Sodium Chloride (Sodium Chloride 0.9%) 1,000 mls @ 80 mls/hr IV .[id number] [facility] Stop: 08/17/18 15:03 Last Admin: 08/16/18 16:40 Dose: 80 mls/hr Piperacillin Sod/Tazobactam (Sod 4.5 gm/ Sodium Chloride) 100 mls @ 100 mls/hr IVPB Q8 [facility]; Protocol Last Admin: 08/16/18 17:32 Dose: 100 mls/hr Azithromycin 500 mg/ Sodium (Chloride) 250 mls @ 250 mls/hr IVPB DAILY [facility]; Protocol Amikacin Sulfate 500 mg/ (Dextrose) 252 mls @ 250 mls/hr IVPB Q24H [facility]; Protocol Last Admin: 08/16/18 17:33 Dose: 250 mls/hr Insulin Human Lispro (Humalog) 0 units SC ACHS [facility]; Protocol Last Admin: 08/16/18 16:38 Dose: 2 unit Metformin HCl (Glucophage) 500 mg PO DAILY [facility] Last Admin: 08/16/18 13:07 Dose: 500 mg Ranolazine (Ranexa) 500 mg PO BID [facility] Last Admin: 08/16/18 16:40 Dose: 500 mg Spironolactone (Aldactone) 25 mg PO DAILY [facility] Last Admin: 08/16/18 12:59 Dose: 25 mg Torsemide (Demadex) 20 mg PO DAILY [facility] Last Admin: 08/16/18 13:03 Dose: 20 mg Physical Exam - Head Exam Head Exam: ATRAUMATIC - Eye Exam Eye Exam: Normal appearance - ENT Exam ENT Exam: Mucous Membranes Moist - Neck Exam Neck exam: Positive for: Normal Inspection - Respiratory Exam Respiratory Exam: Clear to Auscultation Bilateral - Cardiovascular Exam Cardiovascular Exam: REGULAR RHYTHM, +S1, +S2 - GI/Abdominal Exam GI & Abdominal Exam: Normal Bowel Sounds, Soft. absent: Tenderness Results - Vital Signs Recent Vital Signs: Last Vital Signs Temp 99.6 F 08/16/18 19:49 Pulse 85 08/16/18 20:23 Resp 18 08/16/18 19:49 BP 102/59 L 08/16/18 19:49 Pulse Ox 100 08/16/18 19:49 - Labs Result Diagrams: 08/16/18 07:50 08/16/18 07:50 Labs: Laboratory Results - last 24 hr 08/16/18 08/16/18 08/16/18 07:50 07:50 07:50 WBC 6.0 RBC 4.98 Hgb 14.2 Hct 43.3 MCV 87.0 MCH 28.5 MCHC 32.7 L RDW 16.3 H Plt Count 186 MPV 8.9 Neut % (Auto) 86.6 H Lymph % (Auto) 11.4 L Noble % (Auto) 1.4 Eos % (Auto) 0.4 Baso % (Auto) 0.2 Neut # (Auto) 5.2 Lymph # (Auto) 0.7 L Noble # (Auto) 0.1 Eos # (Auto) 0.0 Baso # (Auto) 0.0 PT 13.8 H INR 1.2 APTT 26.1 pCO2 pO2 HCO3 ABG pH ABG Total CO2 ABG O2 Saturation ABG Base Excess Jamie Test ABG Potassium VBG pH VBG pCO2 VBG HCO3 VBG Total CO2 VBG O2 Sat (Calc) VBG Base Excess VBG Potassium A-a O2 Difference Glucose Lactate Vent Mode FiO2 Blood Gas Comments Crit Value Called To Crit Value Called By Crit Value Read Back Blood Gas Notified Time Sodium 140 Potassium 4.3 Chloride 101 Carbon Dioxide 25 Anion Gap 18 BUN 18 Creatinine 1.3 Est GFR ( Amer) > 60 Est GFR (Non-Af Amer) 56 POC Glucose (mg/dL) Random Glucose 173 H Calcium 8.8 Phosphorus 4.5 Magnesium 1.4 L Total Bilirubin 2.5 H AST 126 H ALT 62 Alkaline Phosphatase 155 H Troponin I 0.0150 NT-Pro-B Natriuret Pep 1900 H Total Protein 7.6 Albumin 4.1 Globulin 3.5 Albumin/Globulin Ratio 1.2 Lipase 105 Arterial Blood Potassium Venous Blood Potassium Urine Color Urine Clarity Urine pH Ur Specific [place] Urine Protein Urine Glucose (UA) Urine Ketones Urine Blood Urine Nitrate Urine Bilirubin Urine Urobilinogen Ur Leukocyte Esterase Urine Microscopic WBC Digoxin Influenza Typ A,B (EIA) 08/16/18 08/16/18 08/16/18 07:56 08:00 08:10 WBC RBC Hgb Hct MCV MCH MCHC RDW Plt Count MPV Neut % (Auto) Lymph % (Auto) Noble % (Auto) Eos % (Auto) Baso % (Auto) Neut # (Auto) Lymph # (Auto) Noble # (Auto) Eos # (Auto) Baso # (Auto) PT INR APTT pCO2 pO2 47 HCO3 ABG pH ABG Total CO2 ABG O2 Saturation ABG Base Excess Jamie Test ABG Potassium VBG pH 7.41 VBG pCO2 36 L VBG HCO3 23.4 VBG Total CO2 23.9 VBG O2 Sat (Calc) 85.7 H VBG Base Excess -1.4 L VBG Potassium 4.2 A-a O2 Difference Glucose 175 H Lactate 4.6 H* Vent Mode FiO2 21.0 Blood Gas Comments Lac=4.6 Crit Value Called To terry Hamilton Crit Value Called By 22 Crit Value Read Back Y Blood Gas Notified Time 802 Sodium 137.0 Potassium Chloride 102.0 Carbon Dioxide Anion Gap BUN Creatinine Est GFR ( Amer) Est GFR (Non-Af Amer) POC Glucose (mg/dL) Random Glucose Calcium Phosphorus Magnesium Total Bilirubin AST ALT Alkaline Phosphatase Troponin I NT-Pro-B Natriuret Pep Total Protein Albumin Globulin Albumin/Globulin Ratio Lipase Arterial Blood Potassium Venous Blood Potassium 4.2 Urine Color Huyen Urine Clarity Slighty-cloudy Urine pH 5.0 Ur Specific [place] 1.019 Urine Protein 100 Urine Glucose (UA) Neg Urine Ketones Negative Urine Blood Small Urine Nitrate Negative Urine Bilirubin Negative Urine Urobilinogen 4.0 Ur Leukocyte Esterase Neg Urine Microscopic WBC 3 Digoxin 0.4 L Influenza Typ A,B (EIA) 08/16/18 08/16/18 08/16/18 08:10 11:22 14:19 WBC RBC Hgb Hct MCV MCH MCHC RDW Plt Count MPV Neut % (Auto) Lymph % (Auto) Noble % (Auto) Eos % (Auto) Baso % (Auto) Neut # (Auto) Lymph # (Auto) Noble # (Auto) Eos # (Auto) Baso # (Auto) PT INR APTT pCO2 34 L pO2 58 H 82 HCO3 24.0 ABG pH 7.43 ABG Total CO2 23.6 ABG O2 Saturation 98.2 H ABG Base Excess -1.1 Jamie Test Yes ABG Potassium 3.8 VBG pH 7.45 H VBG pCO2 35 L VBG HCO3 25.3 VBG Total CO2 25.4 VBG O2 Sat (Calc) 92.9 H VBG Base Excess 0.7 VBG Potassium 3.3 L A-a O2 Difference 75.0 Glucose 105 162 H Lactate 1.8 2.9 H Vent Mode FiO2 21.0 28.0 Blood Gas Comments Lac=2.9 Crit Value Called To toribio Ray Crit Value Called By 22 Crit Value Read Back Y Blood Gas Notified Time 1425 Sodium 136.0 135.0 Potassium Chloride 103.0 103.0 Carbon Dioxide Anion Gap BUN Creatinine Est GFR ( Amer) Est GFR (Non-Af Amer) POC Glucose (mg/dL) Random Glucose Calcium Phosphorus Magnesium Total Bilirubin AST ALT Alkaline Phosphatase Troponin I NT-Pro-B Natriuret Pep Total Protein Albumin Globulin Albumin/Globulin Ratio Lipase Arterial Blood Potassium 3.8 Venous Blood Potassium 3.3 L Urine Color Urine Clarity Urine pH Ur Specific [place] Urine Protein Urine Glucose (UA) Urine Ketones Urine Blood Urine Nitrate Urine Bilirubin Urine Urobilinogen Ur Leukocyte Esterase Urine Microscopic WBC Digoxin Influenza Typ A,B (EIA) Negative for flu a/b 08/16/18 08/16/18 16:15 19:12 WBC RBC Hgb Hct MCV MCH MCHC RDW Plt Count MPV Neut % (Auto) Lymph % (Auto) Noble % (Auto) Eos % (Auto) Baso % (Auto) Neut # (Auto) Lymph # (Auto) Noble # (Auto) Eos # (Auto) Baso # (Auto) PT INR APTT pCO2 34 L pO2 64 L HCO3 24.9 ABG pH 7.45 ABG Total CO2 24.6 ABG O2 Saturation 95.5 ABG Base Excess 0.1 Jamie Test Yes ABG Potassium 3.9 VBG pH VBG pCO2 VBG HCO3 VBG Total CO2 VBG O2 Sat (Calc) VBG Base Excess VBG Potassium A-a O2 Difference 93.0 Glucose 170 H Lactate 2.5 H Vent Mode N/c FiO2 28.0 Blood Gas Comments Crit Value Called To Crit Value Called By Crit Value Read Back Blood Gas Notified Time Sodium 133.0 Potassium Chloride 100.0 Carbon Dioxide Anion Gap BUN Creatinine Est GFR ( Amer) Est GFR (Non-Af Amer) POC Glucose (mg/dL) 158 H Random Glucose Calcium Phosphorus Magnesium Total Bilirubin AST ALT Alkaline Phosphatase Troponin I NT-Pro-B Natriuret Pep Total Protein Albumin Globulin Albumin/Globulin Ratio Lipase Arterial Blood Potassium 3.9 Venous Blood Potassium Urine Color Urine Clarity Urine pH Ur Specific [place] Urine Protein Urine Glucose (UA) Urine Ketones Urine Blood Urine Nitrate Urine Bilirubin Urine Urobilinogen Ur Leukocyte Esterase Urine Microscopic WBC Digoxin Influenza Typ A,B (EIA) - Imaging and Cardiology CT scan - abdomen Status: Image reviewed by me, Report reviewed by me US - abdomen Status: Report reviewed by me Assessment & Plan (1) Acute cholecystitis Assessment and Plan: CT and sono evidence of cholecystitis. Bili is slightly increased and MRCP is s cheduled. Continue broad spectrum abx. Status: Acute (2) Sepsis Status: Acute
[2018-08-16] MEDS: Enoxaparin 120 mg Syringe SC SCH (21:49)
[2018-08-17] MEDS: Piperacillin/Tazobact 4.5 GM in Sodium Chloride 0.9% 100 ML IVPB SCH ×3 (00:17→17:29)
[2018-08-17] MEDS ORDERED: Dextrose 50% SYRINGE Inj (50 ml) IVP ONE (05:00)
[2018-08-17] MEDS: Sodium Chloride 0.9% 1,000 ML IV SCH (05:34)
[2018-08-17 05:35] LABS: MEAN CELL VOLUME 86.3 fl (80.0-94.0); MEAN CORPUSCULAR HEMOGLOBIN 27.9 pg (27.0-31.0); MEAN CORPUSCULAR HGB CONC 32.4 g/dL (33.0-37.0); RBC 4.29 Mil/uL (4.40-5.90); RED CELL DISTRIBUTION WIDTH 16.5 % (11.5-14.5); WHITE BLOOD COUNT 13.2 K/uL (4.8-10.8)
[2018-08-17 05:50] LABS: CALCIUM 7.7 mg/dL (8.4-10.2)
[2018-08-17] MEDS: Insulin Lispro (humaLOG) 100 Units/ml Inj SC SCH ×4 (06:33→21:01)
[2018-08-17] MEDS ORDERED: Dextrose 5%/0.9% NS 1,000 ML IV SCH (06:45)
--- NOTE | 2018-08-17 07:25 | CP.PCM.PN ---
Subjective - Date & Time of Evaluation Date of Evaluation: 08/17/18 Time of Evaluation: 06:45 - Subjective Subjective: General surgery progress note Dr. Hodges Patient seen and examined this am at bedside. Per Nursing patient was hypoglycemic overnight but responded well to D50 and fluids are being adjusted appropriately by medical team. He states his pain is improved and being well controlled. Denies f/c, n/v, DAIGLE, CP, SOB and extremity pain or weakness. Objective - Vital Signs/Intake and Output Vital Signs (last 24 hours): Temp Pulse Resp BP Pulse Ox 99.2 F 90 21 101/55 L 95 08/17/18 05:00 08/17/18 05:00 08/17/18 05:00 08/17/18 05:00 08/17/18 05:00 Intake and Output: 08/17/18 08/17/18 06:59 18:59 Intake Total 840 Output Total 500 Balance 340 - Medications Medications: Current Medications Amlodipine Besylate (Norvasc) 10 mg PO DAILY [facility] Last Admin: 08/16/18 13:04 Dose: 10 mg Atorvastatin Calcium (Lipitor) 20 mg PO HS [facility] Last Admin: 08/16/18 21:50 Dose: 20 mg Carvedilol (Coreg) 25 mg PO Q12 [facility] Last Admin: 08/16/18 21:47 Dose: Not Given Dextrose (Dextrose 50% Inj) 0 ml IV STAT PRN; Protocol PRN Reason: Hypoglycemia Protocol Dextrose (Glutose 15) 0 gm PO ONCE PRN; Protocol PRN Reason: Hypoglycemia Protocol Dextrose (Dextrose 50% Inj) 0 ml IV STAT PRN; Protocol PRN Reason: Hypoglycemia Protocol Dextrose (Glutose 15) 0 gm PO ONCE PRN; Protocol PRN Reason: Hypoglycemia Protocol Digoxin (Lanoxin) 0.25 mg PO DAILY [facility] Enoxaparin Sodium (Lovenox) 110 mg SC Q12 [facility]; Protocol Last Admin: 08/16/18 21:49 Dose: 110 mg Glipizide (Glucotrol Xl) 5 mg PO DAILY [facility] Last Admin: 08/16/18 13:03 Dose: 5 mg Glucagon (Glucagen Diagnostic Kit) 0 mg IM STAT PRN; Protocol PRN Reason: Hypoglycemia Protocol Glucagon (Glucagen Diagnostic Kit) 0 mg IM STAT PRN; Protocol PRN Reason: Hypoglycemia Protocol Piperacillin Sod/Tazobactam (Sod 4.5 gm/ Sodium Chloride) 100 mls @ 100 mls/hr IVPB Q8 [facility]; Protocol Last Admin: 08/17/18 00:17 Dose: 100 mls/hr Azithromycin 500 mg/ Sodium (Chloride) 250 mls @ 250 mls/hr IVPB DAILY [facility]; Protocol Amikacin Sulfate 500 mg/ (Dextrose) 252 mls @ 250 mls/hr IVPB Q24H [facility]; Protocol Last Admin: 08/16/18 17:33 Dose: 250 mls/hr Dextrose/Sodium Chloride (Dextrose 5%/0.9% Ns 1000 Ml) 1,000 mls @ 80 mls/hr IV .[id number] [facility] Stop: 08/18/18 06:39 Last Admin: 08/17/18 06:49 Dose: 80 mls/hr Insulin Human Lispro (Humalog) 0 units SC ACHS [facility]; Protocol Last Admin: 08/17/18 06:33 Dose: Not Given Metformin HCl (Glucophage) 500 mg PO DAILY [facility] Last Admin: 08/16/18 13:07 Dose: 500 mg Ranolazine (Ranexa) 500 mg PO BID [facility] Last Admin: 08/16/18 16:40 Dose: 500 mg Spironolactone (Aldactone) 25 mg PO DAILY [facility] Last Admin: 08/16/18 12:59 Dose: 25 mg Torsemide (Demadex) 20 mg PO DAILY [facility] Last Admin: 08/16/18 13:03 Dose: 20 mg - Labs Labs: 08/17/18 04:35 08/17/18 04:35 PT 13.8 Seconds (9.8-13.1) H 08/16/18 07:50 INR 1.2 08/16/18 07:50 APTT 26.1 Seconds (25.6-37.1) 08/16/18 07:50 - Constitutional Appears: Well, Non-toxic, No Acute Distress - Head Exam Head Exam: ATRAUMATIC, NORMOCEPHALIC - Eye Exam Eye Exam: EOMI - ENT Exam ENT Exam: Mucous Membranes Moist - Respiratory Exam Respiratory Exam: NORMAL BREATHING PATTERN - Cardiovascular Exam Cardiovascular Exam: REGULAR RHYTHM - GI/Abdominal Exam GI & Abdominal Exam: Soft, Tenderness (RUQ). absent: Distended, Guarding - Neurological Exam Neurological Exam: Alert, Awake, Oriented x3 - Psychiatric Exam Psychiatric exam: Normal Affect, Normal Mood - Skin Skin Exam: Dry, Intact, Normal Color, Warm Assessment and Plan - Assessment and Plan (Free Text) Assessment: 62 yr old male with cholecystitis/ cholangitis Plan: continue IVF continue ABX c/w pain control scheduled for MRCP today HIDA ordered IR consulted for possible Cholecystostomy tube placement recommened D/c amikacin d/t nephrotoxicity Hold lovenox for procedures d/w Dr. Tracie Christensen, PGY 1
[2018-08-17 07:49] LABS: BILIRUBIN,DIRECT 5.2 mg/ml (0.0-0.4)
[2018-08-17 08:06] LABS: ALBUMIN 3.1 g/dL (3.5-5.0); CALCIUM 7.7 mg/dL (8.4-10.2)
[2018-08-17] MEDS ORDERED: Moxifloxacin IV 400mg/250ml NS 400 MG/250 ML BAG IVPB SCH (09:00)
[2018-08-17] MEDS: Enoxaparin 120 mg Syringe SC SCH ×2 (09:00→21:04)
--- NOTE | 2018-08-17 09:39 | CP.PCM.PN ---
Subjective - Date & Time of Evaluation Date of Evaluation: 08/17/18 Time of Evaluation: 11:35 - Subjective Subjective: Pt is seen and examined at bedside. no acute event overnight. Patient slept well, he had no complain, was put NPO for surgery today. Patient slept well he denies any chest pain, sob, abd pain, diarrhea, constipation or any other symptoms Objective - Vital Signs/Intake and Output Vital Signs (last 24 hours): Temp Pulse Resp BP Pulse Ox 99.7 F H 80 20 101/55 L 95 08/17/18 08:24 08/17/18 08:24 08/17/18 08:24 08/17/18 05:00 08/17/18 08:24 Intake and Output: 08/17/18 08/17/18 06:59 18:59 Intake Total 840 Output Total 500 Balance 340 - Medications Medications: Current Medications Amlodipine Besylate (Norvasc) 10 mg PO DAILY [facility] Last Admin: 08/16/18 13:04 Dose: 10 mg Atorvastatin Calcium (Lipitor) 20 mg PO HS [facility] Last Admin: 08/16/18 21:50 Dose: 20 mg Carvedilol (Coreg) 25 mg PO Q12 [facility] Last Admin: 08/16/18 21:47 Dose: Not Given Dextrose (Dextrose 50% Inj) 0 ml IV STAT PRN; Protocol PRN Reason: Hypoglycemia Protocol Dextrose (Glutose 15) 0 gm PO ONCE PRN; Protocol PRN Reason: Hypoglycemia Protocol Dextrose (Dextrose 50% Inj) 0 ml IV STAT PRN; Protocol PRN Reason: Hypoglycemia Protocol Dextrose (Glutose 15) 0 gm PO ONCE PRN; Protocol PRN Reason: Hypoglycemia Protocol Digoxin (Lanoxin) 0.25 mg PO DAILY [facility] Enoxaparin Sodium (Lovenox) 110 mg SC Q12 [facility]; Protocol Last Admin: 08/16/18 21:49 Dose: 110 mg Glucagon (Glucagen Diagnostic Kit) 0 mg IM STAT PRN; Protocol PRN Reason: Hypoglycemia Protocol Glucagon (Glucagen Diagnostic Kit) 0 mg IM STAT PRN; Protocol PRN Reason: Hypoglycemia Protocol Piperacillin Sod/Tazobactam (Sod 4.5 gm/ Sodium Chloride) 100 mls @ 100 mls/hr IVPB Q8 [facility]; Protocol Last Admin: 08/17/18 00:17 Dose: 100 mls/hr Azithromycin 500 mg/ Sodium (Chloride) 250 mls @ 250 mls/hr IVPB DAILY [facility]; P rotocol Amikacin Sulfate 500 mg/ (Dextrose) 252 mls @ 250 mls/hr IVPB Q24H [facility]; Protocol Last Admin: 08/16/18 17:33 Dose: 250 mls/hr Dextrose/Sodium Chloride (Dextrose 5%/0.9% Ns 1000 Ml) 1,000 mls @ 80 mls/hr IV .[id number] [facility] Stop: 08/18/18 06:39 Last Admin: 08/17/18 06:49 Dose: 80 mls/hr Insulin Human Lispro (Humalog) 0 units SC ACHS [facility]; Protocol Last Admin: 08/17/18 06:33 Dose: Not Given Ranolazine (Ranexa) 500 mg PO BID [facility] Last Admin: 08/16/18 16:40 Dose: 500 mg Spironolactone (Aldactone) 25 mg PO DAILY [facility] Last Admin: 08/16/18 12:59 Dose: 25 mg Torsemide (Demadex) 20 mg PO DAILY [facility] Last Admin: 08/16/18 13:03 Dose: 20 mg - Labs Labs: 08/17/18 04:35 08/17/18 07:08 PT 13.8 Seconds (9.8-13.1) H 08/16/18 07:50 INR 1.2 08/16/18 07:50 APTT 26.1 Seconds (25.6-37.1) 08/16/18 07:50 - Constitutional Appears: Well, Non-toxic, No Acute Distress - Head Exam Head Exam: ATRAUMATIC, NORMAL INSPECTION, NORMOCEPHALIC - Eye Exam Eye Exam: EOMI, Normal appearance, PERRL Pupil Exam: NORMAL ACCOMODATION, PERRL - ENT Exam ENT Exam: Mucous Membranes Moist, Normal Exam - Neck Exam Neck Exam: Full ROM, Normal Inspection - Respiratory Exam Respiratory Exam: Clear to Ausculation Bilateral, NORMAL BREATHING PATTERN - Cardiovascular Exam Cardiovascular Exam: REGULAR RHYTHM, +S1, +S2 - GI/Abdominal Exam GI & Abdominal Exam: Soft, Normal Bowel Sounds - Extremities Exam Extremities Exam: Full ROM, Normal Capillary Refill, Normal Inspection - Back Exam Back Exam: NORMAL INSPECTION - Neurological Exam Neurological Exam: Alert, Awake, Oriented x3 - Psychiatric Exam Psychiatric exam: Normal Affect, Normal Mood - Skin Skin Exam: Dry, Intact, Normal Color, Warm Assessment and Plan - Assessment and Plan (Free Text) Assessment: Pt is a 62 yo male with PMH of A.fib with RVR, HTN, CHF, DM2, hyperlipidemia, presented to ER due to Epigastric/LUQ pain that started today at 4:30. Upon arrival patient had fever, tachycardic and high lactic acid with + acute cholysestites with possible infiltrate; Patient is admitted to telemetry for sepsis abd acute cholysistitis treatment. CT:Distended gallbladder with cholelithaisis, limited pericholecystic fluid suspected Possible cholecystitis. + R and L diverticula, Enlargre prostate gland and L1 anterior compression fracture, age indeterminate. RUQ US: + Cholecystitis, cholelithiasis and sludge identified within the lumen of gallbladder Chest X-ray: mild-moderate pulmonary vascular congestion, no definite airspace disease b/l. Cardiomegaly not excluded Sepsis Afebrile >24h Vitals stable WBC 14.6 lactic acid: 4.2 -> 1.8->0.8 IV fluid bolus given, maintenance fluid is on hold due patient CHF As ID recommendation stop Gentamicin and start Amikacin follow up with Renal function Amikacin started Day 1 Continue Azithromycin day 1 Continue Zosyn Day 2 Acute cholecystitis Abdominal pain Ct scan and RUQ US: + for cholecystitis Patient was held NPO since 00:00 08/17/18 for Possible IR intervention. MRCP done, pending result Patient went for IR for cholecystostomy tube placement Surgery recommend HIDA scan after IR Surgery recommend to Stop Amikacin due to nephrotoxic Possible pneumonia + infiltrate Afebrile >24h Possible infiltrate as per chest xray Influenza A and B negative. Pneumonia covered by sepsis abx. Continue Azithromycin 500mg day 1 Acute kidney Injury Cr 1.3->1.9 BUN 18->25 Start on D NS 1L, 80ml/hr Strict I and O CHF Diastolic, Compensated Cardiology recommend cardiac cath as outpt vs inpt, Continue metoprolol 100mg Hold ARB until infection resolved. F/U echo Afib with RVR Chronic DC pradaxa continue with Lovenox 110mg bid for a therapeutic use As cardiology consult: Dc Coreg, resume Metoprolol 100mg BID po HTN BLood pressure in 96/72 Chronic, controlled Stop Norvasc and aldactone due to sepsis DM2 Chronic, controlled Hold home medication Use sliding scale for insulin use. Hyperlipidemia Chronic, Controlled Continue home medication DVT prophylaxis SCD Therapeutic Lovenex 110 bid dose for A fib with RVR
--- NOTE | 2018-08-17 10:14 | CP.PCM.CON ---
History of Present Illness - History of Present Illness History of Present Illness: Consultation for evaluation of afib w/RVR HPI: 62 year old male with hx of paroxysmal atrial firbillation on pradaxa at home seen by me in office last month for evaluation of sx of ZAMARRIPA/CP and underwent stresst testing showing anterolateral wall LA with periinfarct ischemia admitted with acute cholecystiiis causing sepsis with elevated lactate. HR now controlled, BNP elevated. Review of Systems - Review of Systems Systems not reviewed;Unavailable: Acuity of Condition - Constitutional Constitutional: As Per HPI - EENT Eyes: As Per HPI Ears: As Per HPI Nose/Mouth/Throat: As Per HPI - Cardiovascular Cardiovascular: As Per HPI - Respiratory Respiratory: As Per HPI - Gastrointestinal Gastrointestinal: As Per HPI - Genitourinary Genitourinary: As Per HPI - Reproductive: Male Reproductive:Male: As Per HPI - Musculoskeletal Musculoskeletal: As Per HPI - Integumentary Integumentary: As Per HPI - Neurological Neurological: As Per HPI - Psychiatric Psychiatric: As Per HPI - Endocrine Endocrine: As Per HPI - Hematologic/Lymphatic Hematologic: As Per HPI Past Patient History - Past Social History Smoking Status: Never Smoked - CARDIAC Hx Cardiac Disorders: Yes (A fib; CAD; CHF;) - ENDOCRINE/METABOLIC Hx Endocrine Disorders: (DM; Dyslipidemia) - HEMATOLOGICAL/ONCOLOGICAL Hx AIDS: No Hx Human Immunodeficiency Virus (HIV): No - MUSCULOSKELETAL/RHEUMATOLOGICAL Hx Falls: No - PSYCHIATRIC Hx Substance Use: No - ANESTHESIA Hx Anesthesia: No Meds Allergies/Adverse Reactions: Allergies Allergy/AdvReac Type Severity Reaction Status Date / Time No Known Allergies Allergy Verified 08/16/18 10:39 - Medications Medications: Current Medications Amlodipine Besylate (Norvasc) 10 mg PO DAILY [facility] Last Admin: 08/16/18 13:04 Dose: 10 mg Atorvastatin Calcium (Lipitor) 20 mg PO HS [facility] Last Admin: 08/16/18 21:50 Dose: 20 mg Carvedilol (Coreg) 25 mg PO Q12 [facility] Last Admin: 08/16/18 21:47 Dose: Not Given Dextrose (Dextrose 50% Inj) 0 ml IV STAT PRN; Protocol PRN Reason: Hypoglycemia Protocol Dextrose (Glutose 15) 0 gm PO ONCE PRN; Protocol PRN Reason: Hypoglycemia Protocol Dextrose (Dextrose 50% Inj) 0 ml IV STAT PRN; Protocol PRN Reason: Hypoglycemia Protocol Dextrose (Glutose 15) 0 gm PO ONCE PRN; Protocol PRN Reason: Hypoglycemia Protocol Digoxin (Lanoxin) 0.25 mg PO DAILY [facility] Enoxaparin Sodium (Lovenox) 110 mg SC Q12 [facility]; Protocol Last Admin: 08/16/18 21:49 Dose: 110 mg Glucagon (Glucagen Diagnostic Kit) 0 mg IM STAT PRN; Protocol PRN Reason: Hypoglycemia Protocol Glucagon (Glucagen Diagnostic Kit) 0 mg IM STAT PRN; Protocol PRN Reason: Hypoglycemia Protocol Piperacillin Sod/Tazobactam (Sod 4.5 gm/ Sodium Chloride) 100 mls @ 100 mls/hr IVPB Q8 [facility]; Protocol Last Admin: 08/17/18 00:17 Dose: 100 mls/hr Azithromycin 500 mg/ Sodium (Chloride) 250 mls @ 250 mls/hr IVPB DAILY [facility]; Protocol Amikacin Sulfate 500 mg/ (Dextrose) 252 mls @ 250 mls/hr IVPB Q24H [facility]; Protocol Last Admin: 08/16/18 17:33 Dose: 250 mls/hr Dextrose/Sodium Chloride (Dextrose 5%/0.9% Ns 1000 Ml) 1,000 mls @ 80 mls/hr IV .[id number] [facility] Stop: 08/18/18 06:39 Last Admin: 08/17/18 06:49 Dose: 80 mls/hr Insulin Human Lispro (Humalog) 0 units SC ACHS [facility]; Protocol Last Admin: 08/17/18 06:33 Dose: Not Given Ranolazine (Ranexa) 500 mg PO BID [facility] Last Admin: 08/16/18 16:40 Dose: 500 mg Spironolactone (Aldactone) 25 mg PO DAILY [facility] Last Admin: 08/16/18 12:59 Dose: 25 mg Torsemide (Demadex) 20 mg PO DAILY [facility] Last Admin: 08/16/18 13:03 Dose: 20 mg Physical Exam - Constitutional Appears: Well - Head Exam Head Exam: ATRAUMATIC, NORMAL INSPECTION, NORMOCEPHALIC - Eye Exam Eye Exam: EOMI, Normal appearance, PERRL Pupil Exam: NORMAL ACCOMODATION, PERRL - ENT Exam ENT Exam: Mucous Membranes Moist, Normal Exam - Neck Exam Neck exam: Positive for: Normal Inspection - Respiratory Exam Respiratory Exam: Clear to Auscultation Bilateral, NORMAL BREATHING PATTERN - Cardiovascular Exam Cardiovascular Exam: REGULAR RHYTHM - GI/Abdominal Exam GI & Abdominal Exam: Normal Bowel Sounds, Soft. absent: Tenderness - Extremities Exam Extremities exam: Positive for: normal inspection - Back Exam Back exam: NORMAL INSPECTION - Neurological Exam Neurological exam: Alert, CN II-XII Intact, Normal Gait, Oriented x3, Reflexes Normal - Psychiatric Exam Psychiatric exam: Normal Affect, Normal Mood - Skin Skin Exam: Dry, Intact, Normal Color, Warm Results - Vital Signs Recent Vital Signs: Last Vital Signs Temp 99.7 F H 08/17/18 08:24 Pulse 80 08/17/18 08:24 Resp 20 08/17/18 08:24 BP 101/55 L 08/17/18 05:00 Pulse Ox 95 08/17/18 08:24 - Labs Result Diagrams: 08/17/18 04:35 08/17/18 07:08 Labs: Laboratory Results - last 24 hr 08/16/18 08/16/18 08/16/18 08:00 11:22 12:34 WBC RBC Hgb Hct MCV MCH MCHC RDW Plt Count ESR pCO2 pO2 58 H HCO3 ABG pH ABG Total CO2 ABG O2 Saturation ABG Base Excess Jamie Test ABG Potassium VBG pH 7.45 H VBG pCO2 35 L VBG HCO3 25.3 VBG Total CO2 25.4 VBG O2 Sat (Calc) 92.9 H VBG Base Excess 0.7 VBG Potassium 3.3 L A-a O2 Difference Sodium 136.0 Chloride 103.0 Glucose 105 Lactate 1.8 Vent Mode FiO2 21.0 Blood Gas Comments Crit Value Called To Crit Value Called By Crit Value Read Back Blood Gas Notified Time Potassium Carbon Dioxide Anion Gap BUN Creatinine Est GFR ( Amer) Est GFR (Non-Af Amer) POC Glucose (mg/dL) 87 Random Glucose Lactic Acid Calcium Magnesium Total Bilirubin Direct Bilirubin AST ALT Alkaline Phosphatase Total Protein Albumin Globulin Albumin/Globulin Ratio Arterial Blood Potassium Venous Blood Potassium 3.3 L Urine Color Huyen Urine Clarity Slighty-cloudy Urine pH 5.0 Ur Specific Hughes 1.019 Urine Protein 100 Urine Glucose (UA) Neg Urine Ketones Negative Urine Blood Small Urine Nitrate Negative Urine Bilirubin Negative Urine Urobilinogen 4.0 Ur Leukocyte Esterase Neg Urine Microscopic WBC 3 08/16/18 08/16/18 08/16/18 14:19 16:15 19:12 WBC RBC Hgb Hct MCV MCH MCHC RDW Plt Count ESR pCO2 34 L 34 L pO2 82 64 L HCO3 24.0 24.9 ABG pH 7.43 7.45 ABG Total CO2 23.6 24.6 ABG O2 Saturation 98.2 H 95.5 ABG Base Excess -1.1 0.1 Jamie Test Yes Yes ABG Potassium 3.8 3.9 VBG pH VBG pCO2 VBG HCO3 VBG Total CO2 VBG O2 Sat (Calc) VBG Base Excess VBG Potassium A-a O2 Difference 75.0 93.0 Sodium 135.0 133.0 Chloride 103.0 100.0 Glucose 162 H 170 H Lactate 2.9 H 2.5 H Vent Mode N/c FiO2 28.0 28.0 Blood Gas Comments Lac=2.9 Crit Value Called To toribio Ray Crit Value Called By 22 Crit Value Read Back Y Blood Gas Notified Time 1425 Potassium Carbon Dioxide Anion Gap BUN Creatinine Est GFR ( Amer) Est GFR (Non-Af Amer) POC Glucose (mg/dL) 158 H Random Glucose Lactic Acid Calcium Magnesium Total Bilirubin Direct Bilirubin AST ALT Alkaline Phosphatase Total Protein Albumin Globulin Albumin/Globulin Ratio Arterial Blood Potassium 3.8 3.9 Venous Blood Potassium Urine Color Urine Clarity Urine pH Ur Specific Hughes Urine Protein Urine Glucose (UA) Urine Ketones Urine Blood Urine Nitrate Urine Bilirubin Urine Urobilinogen Ur Leukocyte Esterase Urine Microscopic WBC 08/16/18 08/17/18 08/17/18 22:11 04:35 04:35 WBC 13.2 H D RBC 4.29 L Hgb 12.0 D Hct 37.0 MCV 86.3 MCH 27.9 MCHC 32.4 L RDW 16.5 H Plt Count 158 ESR 33 H pCO2 pO2 HCO3 ABG pH ABG Total CO2 ABG O2 Saturation ABG Base Excess Jamie Test ABG Potassium VBG pH VBG pCO2 VBG HCO3 VBG Total CO2 VBG O2 Sat (Calc) VBG Base Excess VBG Potassium A-a O2 Difference Sodium 139 Chloride 103 Glucose Lactate Vent Mode FiO2 Blood Gas Comments Crit Value Called To Crit Value Called By Crit Value Read Back Blood Gas Notified Time Potassium 3.6 Carbon Dioxide 25 Anion Gap 15 BUN 25 H Creatinine 1.9 H Est GFR ( Amer) 44 Est GFR (Non-Af Amer) 36 POC Glucose (mg/dL) 130 H Random Glucose 72 L Lactic Acid Calcium 7.7 L Magnesium Total Bilirubin Direct Bilirubin AST ALT Alkaline Phosphatase Total Protein Albumin Globulin Albumin/Globulin Ratio Arterial Blood Potassium Venous Blood Potassium Urine Color Urine Clarity Urine pH Ur Specific Hughes Urine Protein Urine Glucose (UA) Urine Ketones Urine Blood Urine Nitrate Urine Bilirubin Urine Urobilinogen Ur Leukocyte Esterase Urine Microscopic WBC 08/17/18 08/17/18 08/17/18 04:35 05:24 05:26 WBC RBC Hgb Hct MCV MCH MCHC RDW Plt Count ESR pCO2 pO2 HCO3 ABG pH ABG Total CO2 ABG O2 Saturation ABG Base Excess Jamie Test ABG Potassium VBG pH VBG pCO2 VBG HCO3 VBG Total CO2 VBG O2 Sat (Calc) VBG Base Excess VBG Potassium A-a O2 Difference Sodium Chloride Glucose Lactate Vent Mode FiO2 Blood Gas Comments Crit Value Called To Crit Value Called By Crit Value Read Back Blood Gas Notified Time Potassium Carbon Dioxide Anion Gap BUN Creatinine Est GFR ( Amer) Est GFR (Non-Af Amer) POC Glucose (mg/dL) 53 L 58 L Random Glucose Lactic Acid 0.8 Calcium Magnesium Total Bilirubin Direct Bilirubin AST ALT Alkaline Phosphatase Total Protein Albumin Globulin Albumin/Globulin Ratio Arterial Blood Potassium Venous Blood Potassium Urine Color Urine Clarity Urine pH Ur Specific Hughes Urine Protein Urine Glucose (UA) Urine Ketones Urine Blood Urine Nitrate Urine Bilirubin Urine Urobilinogen Ur Leukocyte Esterase Urine Microscopic WBC 08/17/18 08/17/18 06:09 07:08 WBC RBC Hgb Hct MCV MCH MCHC RDW Plt Count ESR pCO2 pO2 HCO3 ABG pH ABG Total CO2 ABG O2 Saturation ABG Base Excess Jamie Test ABG Potassium VBG pH VBG pCO2 VBG HCO3 VBG Total CO2 VBG O2 Sat (Calc) VBG Base Excess VBG Potassium A-a O2 Difference Sodium 138 Chloride 104 Glucose Lactate Vent Mode FiO2 Blood Gas Comments Crit Value Called To Crit Value Called By Crit Value Read Back Blood Gas Notified Time Potassium 3.6 Carbon Dioxide 23 Anion Gap 15 BUN 25 H Creatinine 1.9 H Est GFR ( Amer) 44 Est GFR (Non-Af Amer) 36 POC Glucose (mg/dL) 100 Random Glucose 72 L Lactic Acid Calcium 7.7 L Magnesium 1.4 L Total Bilirubin 6.7 H Direct Bilirubin 5.2 H AST 150 H ALT 155 H D Alkaline Phosphatase 100 Total Protein 6.3 Albumin 3.1 L D Globulin 3.2 Albumin/Globulin Ratio 1.0 Arterial Blood Potassium Venous Blood Potassium Urine Color Urine Clarity Urine pH Ur Specific Hughes Urine Protein Urine Glucose (UA) Urine Ketones Urine Blood Urine Nitrate Urine Bilirubin Urine Urobilinogen Ur Leukocyte Esterase Urine Microscopic WBC Assessment & Plan (1) Acute cholecystitis Assessment and Plan: abx per ICU / primary team Status: Acute (2) Atrial fibrillation with RVR Assessment and Plan: dc coreg resume metoprolol 100mg po bid dc pradaxa switch to xarelto 20mg po daily Status: Acute (3) CHF (congestive heart failure) Assessment and Plan: diastolic recent abnormal stress test cont bb and arbs will need cardiac cath which can be arranged as outpt vs. inpt Status: Acute (4) Sepsis Assessment and Plan: Abx IVF hydration Status: Acute (5) Septic shock Status: Acute
[2018-08-17] MEDS: Ranolazine 500 mg Extended Release Tablets PO SCH (10:29)
[2018-08-17] MEDS: Azithromycin 500 MG in Sodium Chloride 0.9% 250 ML IVPB SCH (10:38)
[2018-08-17] MEDS ORDERED: Midazolam 2 MG/2 ML VIAL ONE (11:53)
[2018-08-17] MEDS ORDERED: Lidocaine 1% Inj (20ml) ONE (12:03)
[2018-08-17] MEDS ORDERED: Iodixanol 320 MG/ML 100 ML BOTTLE IV ONE (12:12)
--- NOTE | 2018-08-17 12:25 | PCM.SURG1 ---
Surgeon's Initial Post Op Note - Surgeon's Notes Surgeon: Nathaniel Gallegos MD Art Educator: NONE Type of Anesthesia: Local Pre-Operative Diagnosis: Cholecystitis Operative Findings: US showed thick walled GB. Post-Operative Diagnosis: Cholecystitis Operation Performed: Placement of an 8 fr cholecystostomy tube. Specimen/Specimens Removed: 15 cc of bile Estimated Blood Loss: EBL {In ML}: 3 Blood Products Given: N/A Drains Used: No Drains, Orlando Delacruz Post-Op Condition: Fair Date of Surgery/Procedure: 08/17/18 Time of Surgery/Procedure: 12:20
--- NOTE | 2018-08-17 15:10 | CP.PCM.PN ---
Subjective - Date & Time of Evaluation Date of Evaluation: 08/17/18 Time of Evaluation: 15:00 - Subjective Subjective: I D NOTE HAD PERCUTANEOUS CHOLECYSTOSTOMY HAVE HELD TODAYS AMIKACIN GET RANDOM GENTAMICIN LEVEL REPEAT BMP TONITE CONTINUE SAME RX Objective - Vital Signs/Intake and Output Vital Signs (last 24 hours): Temp Pulse Resp BP Pulse Ox 98.6 F 79 22 102/68 98 08/17/18 13:00 08/17/18 13:00 08/17/18 13:00 08/17/18 13:00 08/17/18 13:00 Intake and Output: 08/17/18 08/17/18 06:59 18:59 Intake Total 840 Output Total 500 Balance 340 - Medications Medications: Current Medications Atorvastatin Calcium (Lipitor) 20 mg PO HS [facility] Last Admin: 08/16/18 21:50 Dose: 20 mg Dextrose (Dextrose 50% Inj) 0 ml IV STAT PRN; Protocol PRN Reason: Hypoglycemia Protocol Dextrose (Glutose 15) 0 gm PO ONCE PRN; Protocol PRN Reason: Hypoglycemia Protocol Dextrose (Dextrose 50% Inj) 0 ml IV STAT PRN; Protocol PRN Reason: Hypoglycemia Protocol Dextrose (Glutose 15) 0 gm PO ONCE PRN; Protocol PRN Reason: Hypoglycemia Protocol Digoxin (Lanoxin) 0.25 mg PO DAILY [facility] Enoxaparin Sodium (Lovenox) 110 mg SC Q12 [facility]; Protocol Last Admin: 08/16/18 21:49 Dose: 110 mg Glucagon (Glucagen Diagnostic Kit) 0 mg IM STAT PRN; Protocol PRN Reason: Hypoglycemia Protocol Glucagon (Glucagen Diagnostic Kit) 0 mg IM STAT PRN; Protocol PRN Reason: Hypoglycemia Protocol Piperacillin Sod/Tazobactam (Sod 4.5 gm/ Sodium Chloride) 100 mls @ 100 mls/hr IVPB Q8 [facility]; Protocol Last Admin: 08/17/18 10:30 Dose: 100 mls/hr Azithromycin 500 mg/ Sodium (Chloride) 250 mls @ 250 mls/hr IVPB DAILY [facility]; Protocol Last Admin: 08/17/18 10:38 Dose: 250 mls/hr Amikacin Sulfate 500 mg/ (Dextrose) 252 mls @ 250 mls/hr IVPB Q24H [facility]; Protocol Last Admin: 08/16/18 17:33 Dose: 250 mls/hr Dextrose/Sodium Chloride (Dextrose 5%/0.9% Ns 1000 Ml) 1,000 mls @ 80 mls/hr IV .[id number] [facility] Stop: 08/18/18 06:39 Last Admin: 08/17/18 06:49 Dose: 80 mls/hr Insulin Human Lispro (Humalog) 0 units SC ACHS [facility]; Protocol Last Admin: 08/17/18 12:44 Dose: Not Given Metoprolol Tartrate (Lopressor) 100 mg PO Q12 [facility] Ranolazine (Ranexa) 500 mg PO BID [facility] Last Admin: 08/17/18 10:29 Dose: Not Given - Labs Labs: 08/17/18 04:35 08/17/18 07:08 PT 13.8 Seconds (9.8-13.1) H 08/16/18 07:50 INR 1.2 08/16/18 07:50 APTT 26.1 Seconds (25.6-37.1) 08/16/18 07:50
--- NOTE | 2018-08-17 16:03 | CP.PCM.PN ---
Subjective - Date & Time of Evaluation Date of Evaluation: 08/17/18 Time of Evaluation: 15:56 - Subjective Subjective: GI Progress Note- Dr. Gutierrez Patient seen and examined at bedside. Son present during time of encounter. ABD pain improved. currently s/p PTC placement for decompression of GB. Denies n/v/f/c/cp/sob Objective - Vital Signs/Intake and Output Vital Signs (last 24 hours): Temp Pulse Resp BP Pulse Ox 98.6 F 79 22 102/68 98 08/17/18 13:00 08/17/18 13:00 08/17/18 13:00 08/17/18 13:00 08/17/18 13:00 Intake and Output: 08/17/18 08/17/18 06:59 18:59 Intake Total 840 Output Total 500 Balance 340 - Medications Medications: Current Medications Atorvastatin Calcium (Lipitor) 20 mg PO HS [facility] Last Admin: 08/16/18 21:50 Dose: 20 mg Dextrose (Dextrose 50% Inj) 0 ml IV STAT PRN; Protocol PRN Reason: Hypoglycemia Protocol Dextrose (Glutose 15) 0 gm PO ONCE PRN; Protocol PRN Reason: Hypoglycemia Protocol Dextrose (Dextrose 50% Inj) 0 ml IV STAT PRN; Protocol PRN Reason: Hypoglycemia Protocol Dextrose (Glutose 15) 0 gm PO ONCE PRN; Protocol PRN Reason: Hypoglycemia Protocol Digoxin (Lanoxin) 0.25 mg PO DAILY [facility] Enoxaparin Sodium (Lovenox) 110 mg SC Q12 [facility]; Protocol Last Admin: 08/16/18 21:49 Dose: 110 mg Glucagon (Glucagen Diagnostic Kit) 0 mg IM STAT PRN; Protocol PRN Reason: Hypoglycemia Protocol Glucagon (Glucagen Diagnostic Kit) 0 mg IM STAT PRN; Protocol PRN Reason: Hypoglycemia Protocol Piperacillin Sod/Tazobactam (Sod 4.5 gm/ Sodium Chloride) 100 mls @ 100 mls/hr IVPB Q8 [facility]; Protocol Last Admin: 08/17/18 10:30 Dose: 100 mls/hr Azithromycin 500 mg/ Sodium (Chloride) 250 mls @ 250 mls/hr IVPB DAILY [facility]; Protocol Last Admin: 08/17/18 10:38 Dose: 250 mls/hr Dextrose/Sodium Chloride (Dextrose 5%/0.9% Ns 1000 Ml) 1,000 mls @ 80 mls/hr IV .[id number] [facility] Stop: 08/18/18 06:39 Last Admin: 08/17/18 06:49 Dose: 80 mls/hr Amikacin Sulfate 250 mg/ (Sodium Chloride) 101 mls @ 100.609 mls/hr IVPB [facility]; Protocol Insulin Human Lispro (Humalog) 0 units SC ACHS [facility]; Protocol Last Admin: 08/17/18 12:44 Dose: Not Given Metoprolol Tartrate (Lopressor) 100 mg PO Q12 [facility] Ranolazine (Ranexa) 500 mg PO BID [facility] Last Admin: 08/17/18 10:29 Dose: Not Given - Labs Labs: 08/17/18 04:35 08/17/18 07:08 PT 13.8 Seconds (9.8-13.1) H 08/16/18 07:50 INR 1.2 08/16/18 07:50 APTT 26.1 Seconds (25.6-37.1) 08/16/18 07:50 - Constitutional Appears: Non-toxic, No Acute Distress - Head Exam Head Exam: ATRAUMATIC - Eye Exam Eye Exam: EOMI. absent: Scleral icterus - ENT Exam ENT Exam: Mucous Membranes Moist - Respiratory Exam Respiratory Exam: NORMAL BREATHING PATTERN. absent: Accessory Muscle Use, Respiratory Distress - Cardiovascular Exam Cardiovascular Exam: +S1, +S2. absent: Bradycardia, Tachycardia - GI/Abdominal Exam GI & Abdominal Exam: Distended (normal abd distention), Soft. absent: Firm, Guarding, Rigid, Tenderness Additional comments: PTC tube in place w/ bilious purulent fluid - Extremities Exam Extremities Exam: absent: Calf Tenderness - Neurological Exam Neurological Exam: Alert, Awake, Oriented x3 - Skin Skin Exam: Intact, Warm Assessment and Plan - Assessment and Plan (Free Text) Assessment: 62M w/ cholangitis vs cholecystitis Plan: - f/u MRCP - f/u HIDA - s/p PTC tube placement - further plan pending results of MRCP - f/u AM labs - discussed w/ Dr. Gutierrez GI attending PGY2
--- NOTE | 2018-08-17 16:33 | MRI ---
Date of service: 08/17/2018 PROCEDURE: Magnetic Resonance Cholangiopancreatography HISTORY: COMPARISON: Abdomen ultrasound and abdomen pelvis CT both from 08/16/2018. TECHNIQUE: Multiplanar, multisequence MR images of the abdomen were obtained, including heavily T2 weighted MRCP images of the biliary system. Rotating maximum intensity projection images of the biliary system were generated. FINDINGS: MRCP: The common bile duct is of a normal caliber. No evidence of choledocholithiasis. No intrahepatic biliary ductal dilatation. LIVER: Unremarkable. GALLBLADDER: Distended gallbladder is reiterated with mural thickening and sludge as well as cholelithiasis layering in the dependent portion near the neck. Findings remain suspicious for potential cholecystitis. SPLEEN: Unremarkable. PANCREAS: Unremarkable. ADRENALS: Unremarkable. KIDNEYS: No obstructive uropathy bilaterally. Streaky perinephric changes are reiterated, nonspecific. AORTA: No aneurysm. ASCITES: None. OTHER FINDINGS: None. IMPRESSION: Findings remain suspicious for possible cholecystitis as discussed above. Normal common bile duct caliber. No biliary tree dilatation exclusive of the gallbladder. No choledocholithiasis identified at this time.
[2018-08-17] MEDS: Sodium Chloride 0.45% 1,000 ML IV SCH (22:09)
[2018-08-18] MEDS: Piperacillin/Tazobact 4.5 GM in Sodium Chloride 0.9% 100 ML IVPB SCH ×2 (00:38→09:33)
[2018-08-18 05:39] LABS: ALBUMIN 3.3 g/dL (3.5-5.0); CALCIUM 7.6 mg/dL (8.4-10.2)
[2018-08-18 05:48] LABS: BASO % 0.4 % (0.0-2.0); EOS # 0.1 K/uL (0.0-0.7); EOS % 1.7 % (0.0-4.0); HEMOGLOBIN 12.4 g/dL (12.0-18.0); LYMPH # 0.8 K/uL (1.0-4.3); LYMPH % 9.8 % (20.0-40.0); MEAN CELL VOLUME 88.3 fl (80.0-94.0); MEAN CORPUSCULAR HEMOGLOBIN 28.2 pg (27.0-31.0); MEAN CORPUSCULAR HGB CONC 31.9 g/dL (33.0-37.0); MEAN PLATELET VOLUME 9.6 fl (7.2-11.7); MONO # 0.8 K/uL (0.0-0.8); MONO % 10.1 % (0.0-10.0); NEUT # 6.5 K/uL (1.8-7.0); NRBC % 0.1 % (0.0-0.0); PLATELET COUNT 151 K/uL (130-400); RBC 4.39 Mil/uL (4.40-5.90); RED CELL DISTRIBUTION WIDTH 16.9 % (11.5-14.5); WHITE BLOOD COUNT 8.3 K/uL (4.8-10.8)
--- NOTE | 2018-08-18 07:41 | CP.PCM.PN ---
Subjective - Date & Time of Evaluation Date of Evaluation: 08/18/18 Time of Evaluation: 07:40 - Subjective Subjective: s/p cholecystomy tube Objective - Vital Signs/Intake and Output Vital Signs (last 24 hours): Temp Pulse Resp BP Pulse Ox 98.5 F 71 20 123/75 97 08/18/18 00:00 08/18/18 05:00 08/18/18 05:00 08/18/18 05:00 08/18/18 05:00 Intake and Output: 08/18/18 08/18/18 06:59 18:59 Intake Total 960 Output Total 750 Balance 210 - Medications Medications: Current Medications Atorvastatin Calcium (Lipitor) 20 mg PO HS [facility] Last Admin: 08/17/18 21:02 Dose: 20 mg Dextrose (Dextrose 50% Inj) 0 ml IV STAT PRN; Protocol PRN Reason: Hypoglycemia Protocol Dextrose (Glutose 15) 0 gm PO ONCE PRN; Protocol PRN Reason: Hypoglycemia Protocol Dextrose (Dextrose 50% Inj) 0 ml IV STAT PRN; Protocol PRN Reason: Hypoglycemia Protocol Dextrose (Glutose 15) 0 gm PO ONCE PRN; Protocol PRN Reason: Hypoglycemia Protocol Digoxin (Lanoxin) 0.25 mg PO DAILY [facility] Enoxaparin Sodium (Lovenox) 110 mg SC Q12 [facility]; Protocol Last Admin: 08/17/18 21:04 Dose: 110 mg Glucagon (Glucagen Diagnostic Kit) 0 mg IM STAT PRN; Protocol PRN Reason: Hypoglycemia Protocol Glucagon (Glucagen Diagnostic Kit) 0 mg IM STAT PRN; Protocol PRN Reason: Hypoglycemia Protocol Piperacillin Sod/Tazobactam (Sod 4.5 gm/ Sodium Chloride) 100 mls @ 100 mls/hr IVPB Q8 [facility]; Protocol Last Admin: 08/18/18 00:38 Dose: 100 mls/hr Azithromycin 500 mg/ Sodium (Chloride) 250 mls @ 250 mls/hr IVPB DAILY [facility]; Protocol Last Admin: 08/17/18 10:38 Dose: 250 mls/hr Amikacin Sulfate 250 mg/ (Sodium Chloride) 101 mls @ 100.609 mls/hr IVPB Q24H [facility]; Protocol Sodium Chloride (Sodium Chloride 0.45%) 1,000 mls @ 60 mls/hr IV .[id number] [facility] Stop: 08/18/18 21:36 Last Admin: 08/17/18 22:09 Dose: 60 mls/hr Dextrose (Dextrose 10% In Water) 1,000 mls @ 60 mls/hr IV .[id number] Stop: 08/18/18 15:09 Last Admin: 08/17/18 22:18 Dose: 60 mls/hr Insulin Human Lispro (Humalog) 0 units SC ACHS [facility]; Protocol Last Admin: 08/17/18 21:01 Dose: Not Given Metoprolol Tartrate (Lopressor) 100 mg PO Q12 [facility] Last Admin: 08/17/18 22:13 Dose: 100 mg Ranolazine (Ranexa) 500 mg PO BID [facility] Last Admin: 08/17/18 10:29 Dose: Not Given - Labs Labs: 08/18/18 04:30 08/18/18 04:30 PT 13.8 Seconds (9.8-13.1) H 08/16/18 07:50 INR 1.2 08/16/18 07:50 APTT 26.1 Seconds (25.6-37.1) 08/16/18 07:50 - Constitutional Appears: Well - Head Exam Head Exam: ATRAUMATIC, NORMAL INSPECTION, NORMOCEPHALIC - Eye Exam Eye Exam: EOMI, Normal appearance, PERRL Pupil Exam: NORMAL ACCOMODATION, PERRL - ENT Exam ENT Exam: Mucous Membranes Moist, Normal Exam - Neck Exam Neck Exam: Full ROM, Normal Inspection. absent: Lymphadenopathy - Respiratory Exam Respiratory Exam: Clear to Ausculation Bilateral, NORMAL BREATHING PATTERN - Cardiovascular Exam Cardiovascular Exam: REGULAR RHYTHM, +S1, +S2. absent: Murmur - GI/Abdominal Exam GI & Abdominal Exam: Soft, Normal Bowel Sounds. absent: Tenderness - Extremities Exam Extremities Exam: Full ROM, Normal Capillary Refill, Normal Inspection. absent: Joint Swelling, Pedal Edema - Back Exam Back Exam: NORMAL INSPECTION - Neurological Exam Neurological Exam: Alert, Awake, CN II-XII Intact, Normal Gait, Oriented x3 - Psychiatric Exam Psychiatric exam: Normal Affect, Normal Mood - Skin Skin Exam: Dry, Intact, Normal Color, Warm Assessment and Plan (1) Acute cholecystitis Assessment & Plan: s/p cholecystomy IV abx Status: Acute (2) Atrial fibrillation with RVR Assessment & Plan: rate controlled PO BB resume OAC once cleasred by sx Status: Acute (3) CHF (congestive heart failure) Assessment & Plan: cont med rx cont bb add arb once sepsis resolves Status: Acute (4) Sepsis Status: Acute (5) Septic shock Status: Acute
--- NOTE | 2018-08-18 07:47 | CP.PCM.PN ---
Subjective - Date & Time of Evaluation Date of Evaluation: 08/18/18 Time of Evaluation: 07:45 - Subjective Subjective: Surgery: Dr. Hodges Pt seen and examined. S/P cholecystostomy tube yesterday. Pt states that he is feeling better. No pain, no F/C, no N/V/D. Objective - Vital Signs/Intake and Output Vital Signs (last 24 hours): Temp Pulse Resp BP Pulse Ox 98.5 F 71 20 123/75 97 08/18/18 00:00 08/18/18 05:00 08/18/18 05:00 08/18/18 05:00 08/18/18 05:00 Intake and Output: 08/18/18 08/18/18 06:59 18:59 Intake Total 960 Output Total 750 Balance 210 - Medications Medications: Current Medications Atorvastatin Calcium (Lipitor) 20 mg PO HS [facility] Last Admin: 08/17/18 21:02 Dose: 20 mg Dextrose (Dextrose 50% Inj) 0 ml IV STAT PRN; Protocol PRN Reason: Hypoglycemia Protocol Dextrose (Glutose 15) 0 gm PO ONCE PRN; Protocol PRN Reason: Hypoglycemia Protocol Dextrose (Dextrose 50% Inj) 0 ml IV STAT PRN; Protocol PRN Reason: Hypoglycemia Protocol Dextrose (Glutose 15) 0 gm PO ONCE PRN; Protocol PRN Reason: Hypoglycemia Protocol Digoxin (Lanoxin) 0.25 mg PO DAILY [facility] Enoxaparin Sodium (Lovenox) 110 mg SC Q12 [facility]; Protocol Last Admin: 08/17/18 21:04 Dose: 110 mg Glucagon (Glucagen Diagnostic Kit) 0 mg IM STAT PRN; Protocol PRN Reason: Hypoglycemia Protocol Glucagon (Glucagen Diagnostic Kit) 0 mg IM STAT PRN; Protocol PRN Reason: Hypoglycemia Protocol Piperacillin Sod/Tazobactam (Sod 4.5 gm/ Sodium Chloride) 100 mls @ 100 mls/hr IVPB Q8 [facility]; Protocol Last Admin: 08/18/18 00:38 Dose: 100 mls/hr Azithromycin 500 mg/ Sodium (Chloride) 250 mls @ 250 mls/hr IVPB DAILY [facility]; Protocol Last Admin: 08/17/18 10:38 Dose: 250 mls/hr Amikacin Sulfate 250 mg/ (Sodium Chloride) 101 mls @ 100.609 mls/hr IVPB Q24H [facility]; Protocol Sodium Chloride (Sodium Chloride 0.45%) 1,000 mls @ 60 mls/hr IV .[id number] [facility] Stop: 08/18/18 21:36 Last Admin: 08/17/18 22:09 Dose: 60 mls/hr Dextrose (Dextrose 10% In Water) 1,000 mls @ 60 mls/hr IV .[id number] ONE Stop: 08/18/18 15:09 Last Admin: 08/17/18 22:18 Dose: 60 mls/hr Insulin Human Lispro (Humalog) 0 units SC ACHS [facility]; Protocol Last Admin: 08/17/18 21:01 Dose: Not Given Metoprolol Tartrate (Lopressor) 100 mg PO Q12 [facility] Last Admin: 08/17/18 22:13 Dose: 100 mg Ranolazine (Ranexa) 500 mg PO BID [facility] Last Admin: 08/17/18 10:29 Dose: Not Given - Labs Labs: 08/18/18 04:30 08/18/18 04:30 PT 13.8 Seconds (9.8-13.1) H 08/16/18 07:50 INR 1.2 08/16/18 07:50 APTT 26.1 Seconds (25.6-37.1) 08/16/18 07:50 - Constitutional Appears: Non-toxic, No Acute Distress - Head Exam Head Exam: ATRAUMATIC, NORMOCEPHALIC - Eye Exam Eye Exam: EOMI - ENT Exam ENT Exam: Mucous Membranes Moist - Respiratory Exam Respiratory Exam: NORMAL BREATHING PATTERN. absent: Accessory Muscle Use, Respiratory Distress - GI/Abdominal Exam GI & Abdominal Exam: Soft. absent: Distended, Firm, Guarding, Rigid, Tenderness, Rebound Additional comments: RUQ IR drain in place - Extremities Exam Extremities Exam: absent: Calf Tenderness, Pedal Edema - Neurological Exam Neurological Exam: Alert, Awake, Oriented x3 - Psychiatric Exam Psychiatric exam: Normal Affect, Normal Mood - Skin Skin Exam: Dry, Normal Color, Warm Assessment and Plan - Assessment and Plan (Free Text) Assessment: 62M w. cholecystitis, s/p cholecystosotmy tube placement -will start CLD, ADAT -c/w abx per ID -pt will need cardiac cath per cardio -will plan for elective hermes out pt once optimized medically -ok to resume anti-coagulation -d/w attending Zemaitis PGY4
--- NOTE | 2018-08-18 08:55 | CP.PCM.PN ---
<Aki Roy - Last Filed: 08/18/18 12:21> Subjective - Date & Time of Evaluation Date of Evaluation: 08/18/18 Time of Evaluation: 08:00 - Subjective Subjective: Patient seen and examined at bedside today. No acute event overnight. Cholecystosotmy tube placement by IR yesterday. As per today patient have no complain he want to go home, he is able to eat, walk, void and pass gas. Patient denies any fever, chills, chest pain, sob, abd pain, or any other symptoms. Objective - Vital Signs/Intake and Output Vital Signs (last 24 hours): Temp Pulse Resp BP Pulse Ox 98.5 F 71 20 123/75 97 08/18/18 00:00 08/18/18 05:00 08/18/18 05:00 08/18/18 05:00 08/18/18 05:00 Intake and Output: 08/18/18 08/18/18 06:59 18:59 Intake Total 960 Output Total 750 Balance 210 - Medications Medications: Current Medications Atorvastatin Calcium (Lipitor) 20 mg PO HS [facility] Last Admin: 08/17/18 21:02 Dose: 20 mg Dextrose (Dextrose 50% Inj) 0 ml IV STAT PRN; Protocol PRN Reason: Hypoglycemia Protocol Dextrose (Glutose 15) 0 gm PO ONCE PRN; Protocol PRN Reason: Hypoglycemia Protocol Dextrose (Dextrose 50% Inj) 0 ml IV STAT PRN; Protocol PRN Reason: Hypoglycemia Protocol Dextrose (Glutose 15) 0 gm PO ONCE PRN; Protocol PRN Reason: Hypoglycemia Protocol Digoxin (Lanoxin) 0.25 mg PO DAILY [facility] Docusate Sodium (Colace) 100 mg PO DAILY [facility] Enoxaparin Sodium (Lovenox) 110 mg SC Q12 [facility]; Protocol Last Admin: 08/17/18 21:04 Dose: 110 mg Glucagon (Glucagen Diagnostic Kit) 0 mg IM STAT PRN; Protocol PRN Reason: Hypoglycemia Protocol Glucagon (Glucagen Diagnostic Kit) 0 mg IM STAT PRN; Protocol PRN Reason: Hypoglycemia Protocol Piperacillin Sod/Tazobactam (Sod 4.5 gm/ Sodium Chloride) 100 mls @ 100 mls/hr IVPB Q8 [facility]; Protocol Last Admin: 08/18/18 00:38 Dose: 100 mls/hr Azithromycin 500 mg/ Sodium (Chloride) 250 mls @ 250 mls/hr IVPB DAILY [facility]; Protocol Last Admin: 08/17/18 10:38 Dose: 250 mls/hr Amikacin Sulfate 250 mg/ (Sodium Chloride) 101 mls @ 100.609 mls/hr IVPB Q24H [facility]; Protocol Sodium Chloride (Sodium Chloride 0.45%) 1,000 mls @ 60 mls/hr IV .[id number] [facility] Stop: 08/18/18 21:36 Last Admin: 08/17/18 22:09 Dose: 60 mls/hr Dextrose (Dextrose 10% In Water) 1,000 mls @ 60 mls/hr IV .[id number] ONE Stop: 08/18/18 15:09 Last Admin: 08/17/18 22:18 Dose: 60 mls/hr Insulin Human Lispro (Humalog) 0 units SC ACHS [facility]; Protocol Last Admin: 08/17/18 21:01 Dose: Not Given Metoprolol Tartrate (Lopressor) 100 mg PO Q12 [facility] Last Admin: 08/17/18 22:13 Dose: 100 mg Ranolazine (Ranexa) 500 mg PO BID [facility] Last Admin: 08/17/18 10:29 Dose: Not Given - Labs Labs: 08/18/18 04:30 08/18/18 04:30 PT 13.8 Seconds (9.8-13.1) H 08/16/18 07:50 INR 1.2 08/16/18 07:50 APTT 26.1 Seconds (25.6-37.1) 08/16/18 07:50 - Constitutional Appears: Well, Non-toxic, No Acute Distress - Head Exam Head Exam: ATRAUMATIC, NORMAL INSPECTION, NORMOCEPHALIC - Eye Exam Eye Exam: EOMI, Normal appearance, PERRL Pupil Exam: NORMAL ACCOMODATION, PERRL - ENT Exam ENT Exam: Mucous Membranes Moist, Normal Exam - Neck Exam Neck Exam: Full ROM, Normal Inspection - Respiratory Exam Respiratory Exam: Clear to Ausculation Bilateral, NORMAL BREATHING PATTERN - Cardiovascular Exam Cardiovascular Exam: REGULAR RHYTHM, +S1, +S2 - GI/Abdominal Exam GI & Abdominal Exam: Soft, Normal Bowel Sounds. absent: Tenderness Additional comments: surgical scar noted on the RUQ no erythema, tenderness. - Extremities Exam Extremities Exam: Full ROM, Normal Capillary Refill, Normal Inspection - Back Exam Back Exam: NORMAL INSPECTION - Neurological Exam Neurological Exam: Alert, Awake, Oriented x3 - Psychiatric Exam Psychiatric exam: Normal Affect, Normal Mood - Skin Skin Exam: Dry, Intact, Normal Color, Warm Assessment and Plan - Assessment and Plan (Free Text) Assessment: Assessment: Pt is a 62 yo male with PMH of Amalia with RVR, HTN, CHF, DM2, hyperlipidemia, presented to ER due to Epigastric/LUQ pain that started today at 4:30. Upon arrival patient had fever, tachycardic and high lactic acid with + acute cholysestites with possible infiltrate; Patient is admitted to telemetry for sepsis abd acute cholysistitis treatment. S/P Cholecystostomy tube placement day 1 CT:Distended gallbladder with cholelithaisis, limited pericholecystic fluid suspected Possible cholecystitis. + R and L diverticula, Enlargre prostate gland and L1 anterior compression fracture, age indeterminate. RUQ US: + Cholecystitis, cholelithiasis and sludge identified within the lumen of gallbladder Chest X-ray: mild-moderate pulmonary vascular congestion, no definite airspace disease b/l. Cardiomegaly not excluded Acute cholecystitis S/P Percutaneous cholecystostomy tube placement day 1 Pain resolved Total bili improving AST/ALT trending down MRCP + cholesystitis. No common bile duct dilation. HIDA + Cholesystitis Ct scan and RUQ US: + for cholecystitis Start liquid diet, administer Diet as tolerated As per IR will be sent to OR to remove tube tomorrow (08/19/2018) As per surgery will do elective lara as outpt. Sepsis Resolved Afebrile >24h Vitals stable WBC 14.6->8.3 lactic acid: 4.2 -> 1.8->0.8 Amikacin started Day 2 Continue Azithromycin day 2 Continue Zosyn Day 3 F/u gentamicin level Possible pneumonia + infiltrate Afebrile >24h Possible infiltrate as per chest xray Influenza A and B negative. Pneumonia covered by sepsis abx. Continue Azithromycin 500mg day 2 Acute kidney Injury improving Cr 1.3->1.9->1.7 BUN 18->25->1/9 continue D10 NS 1L, 60ml/hr Strict I and O CHF Diastolic, Compensated Cardiology recommend cardiac cath as outpt, Continue metoprolol 100mg. Start Losartan 50mg as per cardiology recommendation F/U echo Afib with RVR Chronic DC pradaxa continue with Lovenox 110mg bid for a therapeutic use As cardiology consult: Dc Coreg, resume Metoprolol 100mg BID po rate controlled OAC continued HTN Chronic, controlled Stop Norvasc and aldactone DM2 Chronic, controlled Hold home medication Use sliding scale for insulin use. Hyperlipidemia Chronic, Controlled Continue home medication DVT prophylaxis SCD Therapeutic Lovenex 110 bid dose for A fib with RVR <Aniyah Carcamo Ananya - Last Filed: 08/18/18 14:56> Objective - Vital Signs/Intake and Output Vital Signs (last 24 hours): Temp Pulse Resp BP Pulse Ox 98.6 F 69 17 131/81 96 08/18/18 12:33 08/18/18 12:33 08/18/18 12:33 08/18/18 12:33 08/18/18 12:33 Intake and Output: 08/18/18 08/18/18 06:59 18:59 Intake Total 960 1070 Output Total 750 500 Balance 210 570 - Medications Medications: Current Medications Atorvastatin Calcium (Lipitor) 20 mg PO HS [facility] Last Admin: 08/17/18 21:02 Dose: 20 mg Dextrose (Dextrose 50% Inj) 0 ml IV STAT PRN; Protocol PRN Reason: Hypoglycemia Protocol Dextrose (Glutose 15) 0 gm PO ONCE PRN; Protocol PRN Reason: Hypoglycemia Protocol Dextrose (Dextrose 50% Inj) 0 ml IV STAT PRN; Protocol PRN Reason: Hypoglycemia Protocol Dextrose (Glutose 15) 0 gm PO ONCE PRN; Protocol PRN Reason: Hypoglycemia Protocol Digoxin (Lanoxin) 0.25 mg PO DAILY [facility] Last Admin: 08/18/18 09:44 Dose: 0.25 mg Docusate Sodium (Colace) 100 mg PO DAILY [facility] Last Admin: 08/18/18 10:38 Dose: 100 mg Enoxaparin Sodium (Lovenox) 110 mg SC Q12 [facility]; Protocol Last Admin: 08/17/18 21:04 Dose: 110 mg Glucagon (Glucagen Diagnostic Kit) 0 mg IM STAT PRN; Protocol PRN Reason: Hypoglycemia Protocol Glucagon (Glucagen Diagnostic Kit) 0 mg IM STAT PRN; Protocol PRN Reason: Hypoglycemia Protocol Piperacillin Sod/Tazobactam (Sod 4.5 gm/ Sodium Chloride) 100 mls @ 100 mls/hr IVPB Q8 [facility]; Protocol Last Admin: 08/18/18 09:33 Dose: 100 mls/hr Azithromycin 500 mg/ Sodium (Chloride) 250 mls @ 250 mls/hr IVPB DAILY [facility]; Protocol Last Admin: 08/18/18 09:30 Dose: 250 mls/hr Amikacin Sulfate 250 mg/ (Sodium Chloride) 101 mls @ 100.609 mls/hr IVPB Q24H [facility]; Protocol Sodium Chloride (Sodium Chloride 0.45%) 1,000 mls @ 60 mls/hr IV .[id number] [facility] Stop: 08/18/18 21:36 Last Admin: 08/18/18 14:02 Dose: 60 mls/hr Dextrose (Dextrose 10% In Water) 1,000 mls @ 60 mls/hr IV .[id number] ONE Stop: 08/19/18 07:09 Last Admin: 08/18/18 14:17 Dose: 60 mls/hr Insulin Human Lispro (Humalog) 0 units SC ACHS [facility]; Protocol Last Admin: 08/18/18 11:52 Dose: 2 unit Losartan Potassium (Cozaar) 50 mg PO DAILY [facility] Metoprolol Tartrate (Lopressor) 100 mg PO Q12 [facility] Last Admin: 08/18/18 09:29 Dose: 100 mg Ranolazine (Ranexa) 500 mg PO BID [facility] Last Admin: 08/18/18 09:43 Dose: 500 mg - Labs Labs: 08/18/18 04:30 08/18/18 04:30 PT 13.8 Seconds (9.8-13.1) H 08/16/18 07:50 INR 1.2 08/16/18 07:50 APTT 26.1 Seconds (25.6-37.1) 08/16/18 07:50 Attending/Attestation - Attestation I have personally seen and examined this patient.: Yes I have fully participated in the care of the patient.: Yes I have reviewed all pertinent clinical information, including history, physical exam and plan: Yes Notes (Text): Sepsis sec to Acute Cholecystitis - s/p Cholecystostomy - cont IV Zosyn, Amikacin - plan for Elective Cholecystectomy - for d/c of Chol Tube in am by IR - Dr ferreira plans to do Cardac cath prior to Elective Lap Lara - will discuss IV antibiotic management/ duration of tx with Dr atwood
[2018-08-18] MEDS: Insulin Lispro (humaLOG) 100 Units/ml Inj SC SCH ×4 (08:58→21:05)
[2018-08-18] MEDS: Digoxin 250 mcg (0.25 mg) Tab PO SCH ×2 (09:28→09:44)
[2018-08-18] MEDS: Azithromycin 500 MG in Sodium Chloride 0.9% 250 ML IVPB SCH (09:30)
[2018-08-18] MEDS: Ranolazine 500 mg Extended Release Tablets PO SCH ×3 (09:30→17:07)
[2018-08-18 10:35] LABS: LYMPHOCYTE 12 % (20-50); MONOCYTE 8 % (0-10); NEUTROPHIL 79 % (42-75); PLATELET ESTIMATE NORMAL (NORMAL); REACTIVE LYMPHOCYTES 1 % (0-0); TOTAL CELLS COUNTED 100
[2018-08-18 10:36] LABS: ANISOCYTOSIS SLIGHT; LARGE PLATELETS PRESENT; OVALOCYTES SLIGHT
--- NOTE | 2018-08-18 11:06 | NM ---
Date of service: 08/17/2018 PROCEDURE: Nuclear Medicine Hepatobiliary Scan HISTORY: cholecystitis COMPARISON: August 16, 2018. Abdominal ultrasound. August 17, 2018. MRCP TECHNIQUE: 4.85 mCi of technetium 99m Mebrofenin was administered intravenously. Planar images of the abdomen were obtained at 5 min intervals to 60 mins. Delayed images were also obtained. FINDINGS: LIVER: Timely and heterogeneous without focal abnormality. COMMON BILE DUCT: identified at 30 mins. GALLBLADDER: Not identified at 4 hr.. SMALL BOWEL: Identified at 60 mins. IMPRESSION: Abnormal hepatobiliary Scan. The cystic duct is occluded presumptive evidence for acute cholecystitis. Heterogeneous uptake in the liver and high background counts throughout the study suggests a component of hepatocellular disease. Concordant findings (preliminary report) provided by [email or web address].
--- NOTE | 2018-08-18 12:38 | CP.PCM.PN ---
Subjective - Date & Time of Evaluation Date of Evaluation: 08/18/18 Time of Evaluation: 12:31 - Subjective Subjective: GI Progress Note- Dr. Gutierrez Patient seen and examined at bedside. s/p cholecystostomy tube placed 08/17. + bilious drainage. +OOB and ambulate, - f/c/cp/sob/n/v/d Objective - Vital Signs/Intake and Output Vital Signs (last 24 hours): Temp Pulse Resp BP Pulse Ox 98.8 F 80 16 129/83 98 08/18/18 09:00 08/18/18 09:00 08/18/18 09:00 08/18/18 09:29 08/18/18 09:00 Intake and Output: 08/18/18 08/18/18 06:59 18:59 Intake Total 960 1070 Output Total 750 500 Balance 210 570 - Medications Medications: Current Medications Atorvastatin Calcium (Lipitor) 20 mg PO HS [facility] Last Admin: 08/17/18 21:02 Dose: 20 mg Dextrose (Dextrose 50% Inj) 0 ml IV STAT PRN; Protocol PRN Reason: Hypoglycemia Protocol Dextrose (Glutose 15) 0 gm PO ONCE PRN; Protocol PRN Reason: Hypoglycemia Protocol Dextrose (Dextrose 50% Inj) 0 ml IV STAT PRN; Protocol PRN Reason: Hypoglycemia Protocol Dextrose (Glutose 15) 0 gm PO ONCE PRN; Protocol PRN Reason: Hypoglycemia Protocol Digoxin (Lanoxin) 0.25 mg PO DAILY [facility] Last Admin: 08/18/18 09:44 Dose: 0.25 mg Docusate Sodium (Colace) 100 mg PO DAILY [facility] Last Admin: 08/18/18 10:38 Dose: 100 mg Enoxaparin Sodium (Lovenox) 110 mg SC Q12 [facility]; Protocol Last Admin: 08/17/18 21:04 Dose: 110 mg Glucagon (Glucagen Diagnostic Kit) 0 mg IM STAT PRN; Protocol PRN Reason: Hypoglycemia Protocol Glucagon (Glucagen Diagnostic Kit) 0 mg IM STAT PRN; Protocol PRN Reason: Hypoglycemia Protocol Piperacillin Sod/Tazobactam (Sod 4.5 gm/ Sodium Chloride) 100 mls @ 100 mls/hr IVPB Q8 [facility]; Protocol Last Admin: 08/18/18 09:33 Dose: 100 mls/hr Azithromycin 500 mg/ Sodium (Chloride) 250 mls @ 250 mls/hr IVPB DAILY [facility]; Protocol Last Admin: 08/18/18 09:30 Dose: 250 mls/hr Amikacin Sulfate 250 mg/ (Sodium Chloride) 101 mls @ 100.609 mls/hr IVPB Q24H [facility]; Protocol Sodium Chloride (Sodium Chloride 0.45%) 1,000 mls @ 60 mls/hr IV .[id number] [facility] Stop: 08/18/18 21:36 Last Admin: 08/17/18 22:09 Dose: 60 mls/hr Dextrose (Dextrose 10% In Water) 1,000 mls @ 60 mls/hr IV .[id number] ONE Stop: 08/18/18 15:09 Last Admin: 08/17/18 22:18 Dose: 60 mls/hr Insulin Human Lispro (Humalog) 0 units SC ACHS [facility]; Protocol Last Admin: 08/18/18 11:52 Dose: 2 unit Losartan Potassium (Cozaar) 50 mg PO DAILY [facility] Metoprolol Tartrate (Lopressor) 100 mg PO Q12 [facility] Last Admin: 08/18/18 09:29 Dose: 100 mg Ranolazine (Ranexa) 500 mg PO BID [facility] Last Admin: 08/18/18 09:43 Dose: 500 mg - Labs Labs: 08/18/18 04:30 08/18/18 04:30 PT 13.8 Seconds (9.8-13.1) H 08/16/18 07:50 INR 1.2 08/16/18 07:50 APTT 26.1 Seconds (25.6-37.1) 08/16/18 07:50 - Constitutional Appears: Non-toxic, No Acute Distress - Head Exam Head Exam: ATRAUMATIC - Eye Exam Eye Exam: EOMI. absent: Scleral icterus - ENT Exam ENT Exam: Mucous Membranes Moist - Respiratory Exam Respiratory Exam: NORMAL BREATHING PATTERN. absent: Accessory Muscle Use, Respiratory Distress - Cardiovascular Exam Cardiovascular Exam: +S1, +S2. absent: Bradycardia, Tachycardia - GI/Abdominal Exam GI & Abdominal Exam: Distended (normal size distention), Soft. absent: Firm, Guarding, Rigid, Tenderness Additional comments: RUQ cholecystostomy tube drain in place w/ bilious drainage. - Extremities Exam Extremities Exam: absent: Calf Tenderness - Neurological Exam Neurological Exam: Alert, Awake, Oriented x3 - Psychiatric Exam Psychiatric exam: Normal Affect - Skin Skin Exam: Intact, Warm Assessment and Plan - Assessment and Plan (Free Text) Assessment: 62M w/ Cholangitis s/p Cholecystostomy tube placement on 08/17 MRCP: no signs of choledocholithiasis, no ductal dilitation HIDA: obstruction cystic duct, irregular filling in hepatobiliary tree, consistent with Acute Lara ? hepatocellular disease Plan: - c/w abx - monitor output - pain control prn - no scope indicated at this time - will continue to follow - plan for elective cholecystectomy by surgery team in future - further recs per Dr. Gutierrez GI attending PGY2
[2018-08-18] MEDS: Sodium Chloride 0.45% 1,000 ML IV SCH (14:02)
--- NOTE | 2018-08-18 16:07 | CP.PCM.PN ---
Subjective - Date & Time of Evaluation Date of Evaluation: 08/18/18 (16:) Time of Evaluation: 16:05 - Subjective Subjective: I D NOTE AFEBRILE DENIES SIGNIFICANT PAIN SOME IMPROVEMENT RENAL FUNCTION AWAIT RANDOM GENTAMICIN LEVEL; HAVE ADJUSTED ZOSYN DOSE Objective - Vital Signs/Intake and Output Vital Signs (last 24 hours): Temp Pulse Resp BP Pulse Ox 98.6 F 69 17 131/81 96 08/18/18 12:33 08/18/18 12:33 08/18/18 12:33 08/18/18 12:33 08/18/18 12:33 Intake and Output: 08/18/18 08/18/18 06:59 18:59 Intake Total 960 2610 Output Total 750 1680 Balance 210 930 - Medications Medications: Current Medications Atorvastatin Calcium (Lipitor) 20 mg PO HS [facility] Last Admin: 08/17/18 21:02 Dose: 20 mg Dextrose (Dextrose 50% Inj) 0 ml IV STAT PRN; Protocol PRN Reason: Hypoglycemia Protocol Dextrose (Glutose 15) 0 gm PO ONCE PRN; Protocol PRN Reason: Hypoglycemia Protocol Dextrose (Dextrose 50% Inj) 0 ml IV STAT PRN; Protocol PRN Reason: Hypoglycemia Protocol Dextrose (Glutose 15) 0 gm PO ONCE PRN; Protocol PRN Reason: Hypoglycemia Protocol Digoxin (Lanoxin) 0.25 mg PO DAILY [facility] Last Admin: 08/18/18 09:44 Dose: 0.25 mg Docusate Sodium (Colace) 100 mg PO DAILY [facility] Last Admin: 08/18/18 10:38 Dose: 100 mg Enoxaparin Sodium (Lovenox) 110 mg SC Q12 [facility]; Protocol Last Admin: 08/17/18 21:04 Dose: 110 mg Glucagon (Glucagen Diagnostic Kit) 0 mg IM STAT PRN; Protocol PRN Reason: Hypoglycemia Protocol Glucagon (Glucagen Diagnostic Kit) 0 mg IM STAT PRN; Protocol PRN Reason: Hypoglycemia Protocol Azithromycin 500 mg/ Sodium (Chloride) 250 mls @ 250 mls/hr IVPB DAILY [facility]; Protocol Last Admin: 08/18/18 09:30 Dose: 250 mls/hr Amikacin Sulfate 250 mg/ (Sodium Chloride) 101 mls @ 100.609 mls/hr IVPB Q24H [facility]; Protocol Last Admin: 08/18/18 15:36 Dose: 100.609 mls/hr Sodium Chloride (Sodium Chloride 0.45%) 1,000 mls @ 60 mls/hr IV .[id number] [facility] Stop: 08/18/18 21:36 Last Admin: 08/18/18 14:02 Dose: 60 mls/hr Dextrose (Dextrose 10% In Water) 1,000 mls @ 60 mls/hr IV .[id number] ONE Stop: 08/19/18 07:09 Last Admin: 08/18/18 14:17 Dose: 60 mls/hr Piperacillin Sod/Tazobactam (Sod 2.25 gm/ Sodium Chloride) 100 mls @ 100 mls/hr IVPB Q8 [facility]; Protocol Insulin Human Lispro (Humalog) 0 units SC ACHS [facility]; Protocol Last Admin: 08/18/18 11:52 Dose: 2 unit Losartan Potassium (Cozaar) 50 mg PO DAILY [facility] Metoprolol Tartrate (Lopressor) 100 mg PO Q12 [facility] Last Admin: 08/18/18 09:29 Dose: 100 mg Ranolazine (Ranexa) 500 mg PO BID [facility] Last Admin: 08/18/18 09:43 Dose: 500 mg - Labs Labs: 08/18/18 04:30 08/18/18 04:30 PT 13.8 Seconds (9.8-13.1) H 08/16/18 07:50 INR 1.2 08/16/18 07:50 APTT 26.1 Seconds (25.6-37.1) 08/16/18 07:50
[2018-08-18] MEDS: Enoxaparin 120 mg Syringe SC SCH (22:26)
[2018-08-19 05:28] LABS: BASO % 0.5 % (0.0-2.0); EOS # 0.2 K/uL (0.0-0.7); HEMOGLOBIN 12.5 g/dL (12.0-18.0); LYMPH # 0.9 K/uL (1.0-4.3); LYMPH % 15.4 % (20.0-40.0); MEAN CELL VOLUME 86.1 fl (80.0-94.0); MEAN CORPUSCULAR HEMOGLOBIN 28.3 pg (27.0-31.0); MEAN CORPUSCULAR HGB CONC 32.8 g/dL (33.0-37.0); MEAN PLATELET VOLUME 9.3 fl (7.2-11.7); MONO # 0.8 K/uL (0.0-0.8); MONO % 13.5 % (0.0-10.0); NEUT # 3.8 K/uL (1.8-7.0); NEUT % 67.6 % (50.0-75.0); RBC 4.41 Mil/uL (4.40-5.90); RED CELL DISTRIBUTION WIDTH 16.7 % (11.5-14.5); WHITE BLOOD COUNT 5.6 K/uL (4.8-10.8)
[2018-08-19 05:47] LABS: ALB/GLOB RATIO 0.9 (1.0-2.1); ALBUMIN 3.3 g/dL (3.5-5.0); ALT/SGPT 96 U/L (21-72); AST/SGOT 53 U/L (17-59); BLOOD UREA NITROGEN 16 mg/dl (9-20); CALCIUM 7.8 mg/dL (8.4-10.2); GFR NON-AFRICAN AMERICAN 56
[2018-08-19] MEDS: Sodium Chloride 0.45% 1,000 ML IV SCH (06:24)
[2018-08-19] MEDS: Insulin Lispro (humaLOG) 100 Units/ml Inj SC SCH ×4 (06:38→21:09)
--- NOTE | 2018-08-19 07:01 | CP.PCM.PN ---
Subjective - Date & Time of Evaluation Date of Evaluation: 08/19/18 Time of Evaluation: 06:50 - Subjective Subjective: General surgery: Dr. Hodges Patient seen and examined this morning. Tolerating diet well. Passing flatus. Denies DAIGLE, f/c, n/v, abdominal pain, extremity pain or weakness. 150ml bilious drainage from PCT overnight and 400ml in the past 24 hours. Objective - Vital Signs/Intake and Output Vital Signs (last 24 hours): Temp Pulse Resp BP Pulse Ox 97.7 F 73 17 146/85 100 08/19/18 05:30 08/19/18 05:30 08/19/18 05:30 08/19/18 05:30 08/19/18 05:30 Intake and Output: 08/19/18 08/19/18 06:59 18:59 Intake Total 600 Output Total 1475 Balance -875 - Medications Medications: Current Medications Atorvastatin Calcium (Lipitor) 20 mg PO HS [facility] Last Admin: 08/18/18 21:04 Dose: 20 mg Dextrose (Dextrose 50% Inj) 0 ml IV STAT PRN; Protocol PRN Reason: Hypoglycemia Protocol Dextrose (Glutose 15) 0 gm PO ONCE PRN; Protocol PRN Reason: Hypoglycemia Protocol Dextrose (Dextrose 50% Inj) 0 ml IV STAT PRN; Protocol PRN Reason: Hypoglycemia Protocol Dextrose (Glutose 15) 0 gm PO ONCE PRN; Protocol PRN Reason: Hypoglycemia Protocol Digoxin (Lanoxin) 0.25 mg PO DAILY [facility] Last Admin: 08/18/18 09:44 Dose: 0.25 mg Docusate Sodium (Colace) 100 mg PO DAILY [facility] Last Admin: 08/18/18 10:38 Dose: 100 mg Enoxaparin Sodium (Lovenox) 110 mg SC Q12 [facility]; Protocol Last Admin: 08/18/18 22:26 Dose: 110 mg Glucagon (Glucagen Diagnostic Kit) 0 mg IM STAT PRN; Protocol PRN Reason: Hypoglycemia Protocol Glucagon (Glucagen Diagnostic Kit) 0 mg IM STAT PRN; Protocol PRN Reason: Hypoglycemia Protocol Azithromycin 500 mg/ Sodium (Chloride) 250 mls @ 250 mls/hr IVPB DAILY [facility]; Protocol Last Admin: 08/18/18 09:30 Dose: 250 mls/hr Amikacin Sulfate 250 mg/ (Sodium Chloride) 101 mls @ 100.609 mls/hr IVPB Q24H [facility]; Protocol Last Admin: 08/18/18 15:36 Dose: 100.609 mls/hr Dextrose (Dextrose 10% In Water) 1,000 mls @ 60 mls/hr IV .[id number] Stop: 08/19/18 07:09 Last Admin: 08/18/18 14:17 Dose: 60 mls/hr Piperacillin Sod/Tazobactam (Sod 2.25 gm/ Sodium Chloride) 100 mls @ 100 mls/hr IVPB Q8 [facility]; Protocol Last Admin: 08/19/18 01:45 Dose: 100 mls/hr Sodium Chloride (Sodium Chloride 0.45%) 1,000 mls @ 60 mls/hr IV .[id number] [facility] Stop: 08/19/18 23:17 Last Admin: 08/19/18 06:24 Dose: 60 mls/hr Dextrose (Dextrose 10% In Water) 1,000 mls @ 60 mls/hr IV .[id number] [facility] Stop: 08/20/18 06:59 Insulin Human Lispro (Humalog) 0 units SC ACHS [facility]; Protocol Last Admin: 08/19/18 06:38 Dose: Not Given Losartan Potassium (Cozaar) 50 mg PO DAILY [facility] Metoprolol Tartrate (Lopressor) 100 mg PO Q12 [facility] Last Admin: 08/18/18 21:04 Dose: 100 mg Ranolazine (Ranexa) 500 mg PO BID [facility] Last Admin: 08/18/18 17:07 Dose: 500 mg - Labs Labs: 08/19/18 04:20 08/19/18 04:20 PT 13.8 Seconds (9.8-13.1) H 08/16/18 07:50 INR 1.2 08/16/18 07:50 APTT 26.1 Seconds (25.6-37.1) 08/16/18 07:50 - Constitutional Appears: Well, Non-toxic, No Acute Distress - Head Exam Head Exam: ATRAUMATIC, NORMOCEPHALIC - Eye Exam Eye Exam: EOMI - ENT Exam ENT Exam: Mucous Membranes Moist - Respiratory Exam Respiratory Exam: NORMAL BREATHING PATTERN - Cardiovascular Exam Cardiovascular Exam: REGULAR RHYTHM - GI/Abdominal Exam GI & Abdominal Exam: Soft. absent: Distended, Guarding, Tenderness Additional comments: PCT in place draining bilious fluid no pain or erythema at the tube site - Extremities Exam Extremities Exam: absent: Calf Tenderness, Pedal Edema - Neurological Exam Neurological Exam: Alert, Awake, Oriented x3 - Psychiatric Exam Psychiatric exam: Normal Affect, Normal Mood - Skin Skin Exam: Dry, Intact, Normal Color, Warm Assessment and Plan - Assessment and Plan (Free Text) Assessment: 62 yr old male with cholecystitis s/p PCT placement POD 2 Plan: ADAT continue pain control abx per ID recs will monitor for additional 24hrs d/t high PCT output suggest review of MRCP d/t high suspicion for biliary obstruction distal to gallbladder possible repeat MRCP if unable to identify cause for high PCT output d/w Dr. Tracie Christensen, PGY 1
[2018-08-19] MEDS: Ranolazine 500 mg Extended Release Tablets PO SCH ×2 (08:19→17:58)
[2018-08-19] MEDS: Enoxaparin 120 mg Syringe SC SCH ×2 (08:21→21:08)
[2018-08-19] MEDS: Digoxin 250 mcg (0.25 mg) Tab PO SCH (08:21)
[2018-08-19] MEDS: Azithromycin 500 MG in Sodium Chloride 0.9% 250 ML IVPB SCH (08:59)
--- NOTE | 2018-08-19 09:28 | CP.PCM.PN ---
Subjective - Date & Time of Evaluation Date of Evaluation: 08/19/18 Time of Evaluation: 09:28 - Subjective Subjective: GI Progress Note- Dr. Gutierrez Patient seen and examined at bedside. No acute events overnight. Hermes tube in place, drained 250cc of bilious fluid. Tolerating current diet. + OOB, - n/v/f/c/d Objective - Vital Signs/Intake and Output Vital Signs (last 24 hours): Temp Pulse Resp BP Pulse Ox 98.6 F 79 97 H 150/101 H 29 L 08/19/18 08:11 08/19/18 08:20 08/19/18 08:11 08/19/18 08:20 08/19/18 08:11 Intake and Output: 08/19/18 08/19/18 06:59 18:59 Intake Total 600 Output Total 1475 Balance -875 - Medications Medications: Current Medications Atorvastatin Calcium (Lipitor) 20 mg PO HS [facility] Last Admin: 08/18/18 21:04 Dose: 20 mg Dextrose (Dextrose 50% Inj) 0 ml IV STAT PRN; Protocol PRN Reason: Hypoglycemia Protocol Dextrose (Glutose 15) 0 gm PO ONCE PRN; Protocol PRN Reason: Hypoglycemia Protocol Dextrose (Dextrose 50% Inj) 0 ml IV STAT PRN; Protocol PRN Reason: Hypoglycemia Protocol Dextrose (Glutose 15) 0 gm PO ONCE PRN; Protocol PRN Reason: Hypoglycemia Protocol Digoxin (Lanoxin) 0.25 mg PO DAILY [facility] Last Admin: 08/19/18 08:21 Dose: 0.25 mg Docusate Sodium (Colace) 100 mg PO DAILY [facility] Last Admin: 08/19/18 08:21 Dose: 100 mg Enoxaparin Sodium (Lovenox) 110 mg SC Q12 [facility]; Protocol Last Admin: 08/19/18 08:21 Dose: 110 mg Glucagon (Glucagen Diagnostic Kit) 0 mg IM STAT PRN; Protocol PRN Reason: Hypoglycemia Protocol Glucagon (Glucagen Diagnostic Kit) 0 mg IM STAT PRN; Protocol PRN Reason: Hypoglycemia Protocol Azithromycin 500 mg/ Sodium (Chloride) 250 mls @ 250 mls/hr IVPB DAILY [facility]; Protocol Last Admin: 08/19/18 08:59 Dose: 250 mls/hr Amikacin Sulfate 250 mg/ (Sodium Chloride) 101 mls @ 100.609 mls/hr IVPB Q24H [facility]; Protocol Last Admin: 08/18/18 15:36 Dose: 100.609 mls/hr Piperacillin Sod/Tazobactam (Sod 2.25 gm/ Sodium Chloride) 100 mls @ 100 mls/hr IVPB Q8 [facility]; Protocol Last Admin: 08/19/18 08:22 Dose: 100 mls/hr Sodium Chloride (Sodium Chloride 0.45%) 1,000 mls @ 60 mls/hr IV .[id number] [facility] Stop: 08/19/18 23:17 Last Admin: 08/19/18 06:24 Dose: 60 mls/hr Dextrose (Dextrose 10% In Water) 1,000 mls @ 60 mls/hr IV .[id number] [facility] Stop: 08/20/18 06:59 Last Admin: 08/19/18 06:50 Dose: 60 mls/hr Insulin Human Lispro (Humalog) 0 units SC ACHS [facility]; Protocol Last Admin: 08/19/18 06:38 Dose: Not Given Losartan Potassium (Cozaar) 50 mg PO DAILY [facility] Last Admin: 08/19/18 08:20 Dose: 50 mg Metoprolol Tartrate (Lopressor) 100 mg PO Q12 [facility] Last Admin: 08/19/18 08:20 Dose: 100 mg Ranolazine (Ranexa) 500 mg PO BID [facility] Last Admin: 08/19/18 08:19 Dose: 500 mg - Labs Labs: 08/19/18 04:20 08/19/18 04:20 PT 13.8 Seconds (9.8-13.1) H 08/16/18 07:50 INR 1.2 08/16/18 07:50 APTT 26.1 Seconds (25.6-37.1) 08/16/18 07:50 - Constitutional Appears: Non-toxic, No Acute Distress - Head Exam Head Exam: ATRAUMATIC - Eye Exam Eye Exam: EOMI. absent: Scleral icterus - ENT Exam ENT Exam: Mucous Membranes Moist - Respiratory Exam Respiratory Exam: NORMAL BREATHING PATTERN. absent: Accessory Muscle Use, Respiratory Distress - Cardiovascular Exam Cardiovascular Exam: +S1, +S2. absent: Bradycardia, Tachycardia - GI/Abdominal Exam GI & Abdominal Exam: Distended (baseline distention), Soft. absent: Firm, Guarding, Rigid, Tenderness Additional comments: Hermes tube in place - Extremities Exam Extremities Exam: absent: Calf Tenderness - Neurological Exam Neurological Exam: Alert, Awake, Oriented x3 - Psychiatric Exam Psychiatric exam: Normal Affect - Skin Skin Exam: Intact, Warm Assessment and Plan - Assessment and Plan (Free Text) Assessment: 62M acute cholecystitis s/p hermes tube placement POD#2 MRCP: no cbd stone, or ductal dilatation Plan: - Tube management per IR - No acute GI intervention required at this time - f/u surgery recs for outpatient cholecystectomy - discussed w/ Dr. Gutierrez GI attending PGY2
--- NOTE | 2018-08-19 09:34 | CP.PCM.PN ---
<Aki Roy - Last Filed: 08/19/18 11:52> Subjective - Date & Time of Evaluation Date of Evaluation: 08/19/18 Time of Evaluation: 09:35 - Subjective Subjective: Patient seen and examined at bedside. Patient have no acute event overnight. Patient have no complain as per today. He is able to eat, mostly liquid. He denies any fever, chills, chest pain, sob, abd pain, diarrhea, constipation, dysuria or polyuria. Objective - Vital Signs/Intake and Output Vital Signs (last 24 hours): Temp Pulse Resp BP Pulse Ox 98.6 F 79 97 H 150/101 H 29 L 08/19/18 08:11 08/19/18 08:20 08/19/18 08:11 08/19/18 08:20 08/19/18 08:11 Intake and Output: 08/19/18 08/19/18 06:59 18:59 Intake Total 600 Output Total 1475 Balance -875 - Medications Medications: Current Medications Atorvastatin Calcium (Lipitor) 20 mg PO HS [facility] Last Admin: 08/18/18 21:04 Dose: 20 mg Dextrose (Dextrose 50% Inj) 0 ml IV STAT PRN; Protocol PRN Reason: Hypoglycemia Protocol Dextrose (Glutose 15) 0 gm PO ONCE PRN; Protocol PRN Reason: Hypoglycemia Protocol Dextrose (Dextrose 50% Inj) 0 ml IV STAT PRN; Protocol PRN Reason: Hypoglycemia Protocol Dextrose (Glutose 15) 0 gm PO ONCE PRN; Protocol PRN Reason: Hypoglycemia Protocol Digoxin (Lanoxin) 0.25 mg PO DAILY [facility] Last Admin: 08/19/18 08:21 Dose: 0.25 mg Docusate Sodium (Colace) 100 mg PO DAILY [facility] Last Admin: 08/19/18 08:21 Dose: 100 mg Enoxaparin Sodium (Lovenox) 110 mg SC Q12 [facility]; Protocol Last Admin: 08/19/18 08:21 Dose: 110 mg Glucagon (Glucagen Diagnostic Kit) 0 mg IM STAT PRN; Protocol PRN Reason: Hypoglycemia Protocol Glucagon (Glucagen Diagnostic Kit) 0 mg IM STAT PRN; Protocol PRN Reason: Hypoglycemia Protocol Azithromycin 500 mg/ Sodium (Chloride) 250 mls @ 250 mls/hr IVPB DAILY [facility]; Protocol Last Admin: 08/19/18 08:59 Dose: 250 mls/hr Amikacin Sulfate 250 mg/ (Sodium Chloride) 101 mls @ 100.609 mls/hr IVPB Q24H [facility]; Protocol Last Admin: 08/18/18 15:36 Dose: 100.609 mls/hr Piperacillin Sod/Tazobactam (Sod 2.25 gm/ Sodium Chloride) 100 mls @ 100 mls/hr IVPB Q8 [facility]; Protocol Last Admin: 08/19/18 08:22 Dose: 100 mls/hr Sodium Chloride (Sodium Chloride 0.45%) 1,000 mls @ 60 mls/hr IV .[id number] [facility] Stop: 08/19/18 23:17 Last Admin: 08/19/18 06:24 Dose: 60 mls/hr Dextrose (Dextrose 10% In Water) 1,000 mls @ 60 mls/hr IV .[id number] [facility] Stop: 08/20/18 06:59 Last Admin: 08/19/18 06:50 Dose: 60 mls/hr Insulin Human Lispro (Humalog) 0 units SC ACHS [facility]; Protocol Last Admin: 08/19/18 06:38 Dose: Not Given Losartan Potassium (Cozaar) 50 mg PO DAILY [facility] Last Admin: 08/19/18 08:20 Dose: 50 mg Metoprolol Tartrate (Lopressor) 100 mg PO Q12 [facility] Last Admin: 08/19/18 08:20 Dose: 100 mg Ranolazine (Ranexa) 500 mg PO BID [facility] Last Admin: 08/19/18 08:19 Dose: 500 mg - Labs Labs: 08/19/18 04:20 08/19/18 04:20 PT 13.8 Seconds (9.8-13.1) H 08/16/18 07:50 INR 1.2 08/16/18 07:50 APTT 26.1 Seconds (25.6-37.1) 08/16/18 07:50 - Constitutional Appears: Well, Non-toxic, No Acute Distress - Head Exam Head Exam: ATRAUMATIC, NORMAL INSPECTION, NORMOCEPHALIC - Eye Exam Eye Exam: EOMI, Normal appearance, PERRL Pupil Exam: NORMAL ACCOMODATION, PERRL - ENT Exam ENT Exam: Mucous Membranes Moist, Normal Exam - Neck Exam Neck Exam: Full ROM, Normal Inspection - Respiratory Exam Respiratory Exam: Clear to Ausculation Bilateral, NORMAL BREATHING PATTERN - Cardiovascular Exam Cardiovascular Exam: REGULAR RHYTHM, +S1, +S2 - GI/Abdominal Exam GI & Abdominal Exam: Soft, Normal Bowel Sounds Additional comments: There is a surgical gauze on RUQ with drainage tube from surgery, patent, minimal drain < 100ml noted - Extremities Exam Extremities Exam: Full ROM, Normal Capillary Refill, Normal Inspection - Back Exam Back Exam: NORMAL INSPECTION - Neurological Exam Neurological Exam: Alert, Awake, Oriented x3 Assessment and Plan - Assessment and Plan (Free Text) Assessment: Pt is a 62 yo male with PMH of A.fib with RVR, HTN, CHF, DM2, hyperlipidemia, presented to ER due to Epigastric/LUQ pain that started today at 4:30. Upon arrival patient had fever, tachycardic and high lactic acid with + acute cholysestites with possible infiltrate; Patient is admitted to telemetry for sepsis abd acute cholysistitis treatment. S/P Cholecystostomy tube placement day 2, Possible removal of tube today. CT:Distended gallbladder with cholelithaisis, limited pericholecystic fluid suspected Possible cholecystitis. + R and L diverticula, Enlargre prostate gland and L1 anterior compression fracture, age indeterminate. RUQ US: + Cholecystitis, cholelithiasis and sludge identified within the lumen of gallbladder Chest X-ray: mild-moderate pulmonary vascular congestion, no definite airspace disease b/l. Cardiomegaly not excluded Repeat Chest X-ray: Positive for Pulmonary vascular congestion, no sign of infiltrate or consolidation. Acute cholecystitis S/P Percutaneous cholecystostomy tube placement day 2 Pain resolved Total bili improving AST/ALT resolved MRCP + cholesystitis. No common bile duct dilation. HIDA + Cholesystitis Ct scan and RUQ US: + for cholecystitis Start liquid diet, administer Diet as tolerated 150ml bilious drainage from PCT overnight and 400ml in the past 24 hours. As per IR will be sent to OR to remove tube Today. As per surgery will do elective hermes as outpt. Transfer to [facility] Continue Antibiotic -Amikacin started Day 3 -Zosyn adjusted to 2.25 as per ID Day 4 F/u gentamicin level Azithromycin DC CHF Diastolic, Compensated Cardiac cath on Friday, continue metoprolol 100mg Continue Losartan 50mg as per cardiology recommendation F/U echo Afib with RVR Chronic Continue with Lovenox 110mg bid for a therapeutic use resume Metoprolol 100mg BID po rate controlled Continue OAC Sepsis Resolved Afebrile >24h Vitals stable WBC 14.6->8.3 lactic acid: 4.2 -> 1.8->0.8 Possible pneumonia + infiltrate Resolved Afebrile >24h Influenza A and B negative. Xray is negative for consolidation. Stop Azithromycin 500mg Acute kidney Injury Resolved Cr 1.3->1.9->1.7->1.3 BUN 18->25->19->16 GFR>60 Stop D10 NS 1L, 60ml/hr, continue mild hydration with .45% NS Strict I and O HTN Chronic, controlled Norvasc and aldactone Stopped DM2 Chronic, controlled Hold home medication Use sliding scale for insulin use. Hyperlipidemia Chronic, Controlled Continue home medication DVT prophylaxis SCD Therapeutic Lovenex 110 bid dose for A fib with RVR <CarcamoAniyah - Last Filed: 08/19/18 15:25> Objective - Vital Signs/Intake and Output Vital Signs (last 24 hours): Temp Pulse Resp BP Pulse Ox 98.5 F 66 20 147/87 96 08/19/18 12:00 08/19/18 12:00 08/19/18 12:00 08/19/18 12:00 08/19/18 12:00 Intake and Output: 08/19/18 08/19/18 06:59 18:59 Intake Total 600 Output Total 1475 Balance -875 - Medications Medications: Current Medications Atorvastatin Calcium (Lipitor) 20 mg PO [facility] Last Admin: 08/18/18 21:04 Dose: 20 mg Dextrose (Dextrose 50% Inj) 0 ml IV STAT PRN; Protocol PRN Reason: Hypoglycemia Protocol Dextrose (Glutose 15) 0 gm PO ONCE PRN; Protocol PRN Reason: Hypoglycemia Protocol Dextrose (Dextrose 50% Inj) 0 ml IV STAT PRN; Protocol PRN Reason: Hypoglycemia Protocol Dextrose (Glutose 15) 0 gm PO ONCE PRN; Protocol PRN Reason: Hypoglycemia Protocol Digoxin (Lanoxin) 0.25 mg PO DAILY [facility] Last Admin: 08/19/18 08:21 Dose: 0.25 mg Docusate Sodium (Colace) 100 mg PO DAILY [facility] Last Admin: 08/19/18 08:21 Dose: 100 mg Enoxaparin Sodium (Lovenox) 110 mg SC Q12 [facility]; Protocol Last Admin: 08/19/18 08:21 Dose: 110 mg Glucagon (Glucagen Diagnostic Kit) 0 mg IM STAT PRN; Protocol PRN Reason: Hypoglycemia Protocol Glucagon (Glucagen Diagnostic Kit) 0 mg IM STAT PRN; Protocol PRN Reason: Hypoglycemia Protocol Amikacin Sulfate 250 mg/ (Sodium Chloride) 101 mls @ 100.609 mls/hr IVPB Q24H [facility]; Protocol Last Admin: 08/18/18 15:36 Dose: 100.609 mls/hr Piperacillin Sod/Tazobactam (Sod 2.25 gm/ Sodium Chloride) 100 mls @ 100 mls/hr IVPB Q8 [facility]; Protocol Last Admin: 08/19/18 08:22 Dose: 100 mls/hr Sodium Chloride (Sodium Chloride 0.45%) 1,000 mls @ 60 mls/hr IV .[id number] [facility] Stop: 08/19/18 23:17 Last Admin: 08/19/18 06:24 Dose: 60 mls/hr Insulin Human Lispro (Humalog) 0 units SC ACHS [facility]; Protocol Last Admin: 08/19/18 11:23 Dose: 2 unit Losartan Potassium (Cozaar) 50 mg PO DAILY [facility] Last Admin: 08/19/18 08:20 Dose: 50 mg Metoprolol Tartrate (Lopressor) 100 mg PO Q12 [facility] Last Admin: 08/19/18 08:20 Dose: 100 mg Ranolazine (Ranexa) 500 mg PO BID [facility] Last Admin: 08/19/18 08:19 Dose: 500 mg - Labs Labs: 08/19/18 04:20 08/19/18 04:20 PT 13.8 Seconds (9.8-13.1) H 08/16/18 07:50 INR 1.2 08/16/18 07:50 APTT 26.1 Seconds (25.6-37.1) 08/16/18 07:50 Attending/Attestation - Attestation I have personally seen and examined this patient.: Yes I have fully participated in the care of the patient.: Yes I have reviewed all pertinent clinical information, including history, physical exam and plan: Yes Notes (Text): Sepsis sec to Acute Cholecystitis s/p Cholecystostomy Tube placement - still with a lot of drainage from Cholecystostomy tube - cont IV Amikacin and Zosyn as rec by Dr Beckwith - Surgery rec to rpt MRCP today - Plan for Cholecystectomy after clearance by Cardio -Cardiac Cath planned by Dr Portillo on Friday to optimize pt for surgery
--- NOTE | 2018-08-19 10:31 | RAD ---
Date of service: 08/19/2018 HISTORY: pneumonia COMPARISON: 08/16/2018 TECHNIQUE: Chest PA and lateral FINDINGS: LUNGS: No consolidation appreciated.Possible concomitant discoid like atelectatic changes left lateral lung base. PLEURA: No significant pleural effusion identified. No pneumothorax apparent. CARDIOVASCULAR: There is presence of aortic atherosclerotic calcification on x-ray. Cardiomegaly pulmonary venous congestion suggested Sandra B-lines noted right lateral lung base. OSSEOUS STRUCTURES: Moderate thoracic spondylosis VISUALIZED UPPER ABDOMEN: Normal. OTHER FINDINGS: Large body habitus IMPRESSION: Cardiomegaly and pulmonary venous congestion. No manisha pleural effusion noted. No consolidative infiltrate appreciated
--- NOTE | 2018-08-19 18:17 | MRI ---
MRCP Indication: evaluate biliary obstruction Technique: Multiplanar, multisequence MR images of the abdomen were obtained, including heavily T2 weighted MRCP images of the biliary system. Rotating maximum intensity projection images of the biliary system were generated. A total of 609 images were submitted for review. Comparison: MRCP performed 08/17/18, limited abdomen ultrasound 08/16/18, CT abdomen and pelvis IV performed 08/16/18 Findings: Trace effusions. Hepatomegaly. Hepatic steatosis. Thickwalled gallbladder. Cholelithiasis. There is no intrahepatic biliary ductal dilatation. The common bile duct appears within normal limits in caliber and tapers distally. The pancreatic duct appears within normal limits of caliber. No filling defects are seen in the common bile duct or pancreatic duct. Enlargement of the pancreatic head/uncinate process with fatty infiltration. No discrete mass or associated inflammatory change appreciated. Small bilateral perinephric fluid, nonspecific. Lobulated soft tissue measuring approximately 2.8 x 1.8 cm, probable splenule. The limited visualized noncontrast adrenal glands, kidneys, and spleen appear otherwise grossly unremarkable. No bulky abdominal lymphadenopathy is seen. No ascites. No acute osseous abnormality is detected. Impression: Enlargement of the pancreatic head/uncinate process with fatty infiltration. No discrete mass or associated inflammatory change appreciated. Finding is of unclear significance/etiology, possibly variant. Recommend clinical correlation and close interval follow-up including MRI follow-up at 3 months. Thickened gallbladder wall. Cholelithiasis. Hepatomegaly. Hepatic steatosis. No filling defects seen within the common bile duct which appears within normal limits of caliber. Lobulated soft tissue measuring approximately 2.8 x 1.8 cm, probable splenule. Trace pleural effusions.
[2018-08-20 05:49] LABS: HEMOGLOBIN 12.7 g/dL (12.0-18.0); MEAN CELL VOLUME 86.2 fl (80.0-94.0); MEAN CORPUSCULAR HEMOGLOBIN 28.6 pg (27.0-31.0); MEAN CORPUSCULAR HGB CONC 33.2 g/dL (33.0-37.0); RBC 4.46 Mil/uL (4.40-5.90); RED CELL DISTRIBUTION WIDTH 16.4 % (11.5-14.5); WHITE BLOOD COUNT 6.2 K/uL (4.8-10.8)
[2018-08-20 06:31] LABS: ALB/GLOB RATIO 0.9 (1.0-2.1); ALBUMIN 3.5 g/dL (3.5-5.0); ALT/SGPT 84 U/L (21-72); AST/SGOT 45 U/L (17-59); BLOOD UREA NITROGEN 14 mg/dl (9-20); CALCIUM 8.3 mg/dL (8.4-10.2); GFR NON-AFRICAN AMERICAN > 60
[2018-08-20] MEDS: Insulin Lispro (humaLOG) 100 Units/ml Inj SC SCH ×4 (07:41→21:16)
--- NOTE | 2018-08-20 07:53 | CP.PCM.PN ---
Subjective - Date & Time of Evaluation Date of Evaluation: 08/20/18 Time of Evaluation: 07:00 - Subjective Subjective: general surgery progress note for Dr. Hodges Patient seen and examined this am at bedside. NAEO per nursing. Bilious output into IR drain/bag. Patient denies n/v f/c abdominal pain DAIGLE, CP SOB and extremity pain or weakness. Patient is having Bm and passing flatus. Tolerating diet well. Objective - Vital Signs/Intake and Output Vital Signs (last 24 hours): Temp Pulse Resp BP Pulse Ox 99 F 91 H 18 146/88 94 L 08/20/18 05:00 08/20/18 01:00 08/20/18 05:00 08/20/18 05:00 08/20/18 05:00 Intake and Output: 08/20/18 08/20/18 06:59 18:59 Intake Total 760 Output Total 1485 Balance -725 - Medications Medications: Current Medications Atorvastatin Calcium (Lipitor) 20 mg PO HS [facility] Last Admin: 08/19/18 21:08 Dose: 20 mg Dextrose (Dextrose 50% Inj) 0 ml IV STAT PRN; Protocol PRN Reason: Hypoglycemia Protocol Dextrose (Glutose 15) 0 gm PO ONCE PRN; Protocol PRN Reason: Hypoglycemia Protocol Dextrose (Dextrose 50% Inj) 0 ml IV STAT PRN; Protocol PRN Reason: Hypoglycemia Protocol Dextrose (Glutose 15) 0 gm PO ONCE PRN; Protocol PRN Reason: Hypoglycemia Protocol Digoxin (Lanoxin) 0.25 mg PO DAILY [facility] Last Admin: 08/19/18 08:21 Dose: 0.25 mg Docusate Sodium (Colace) 100 mg PO DAILY [facility] Last Admin: 08/19/18 08:21 Dose: 100 mg Enoxaparin Sodium (Lovenox) 110 mg SC Q12 [facility]; Protocol Last Admin: 08/19/18 21:08 Dose: 110 mg Glucagon (Glucagen Diagnostic Kit) 0 mg IM STAT PRN; Protocol PRN Reason: Hypoglycemia Protocol Glucagon (Glucagen Diagnostic Kit) 0 mg IM STAT PRN; Protocol PRN Reason: Hypoglycemia Protocol Amikacin Sulfate 250 mg/ (Sodium Chloride) 101 mls @ 100.609 mls/hr IVPB Q24H [facility]; Protocol Last Admin: 08/19/18 15:18 Dose: 100.609 mls/hr Piperacillin Sod/Tazobactam (Sod 2.25 gm/ Sodium Chloride) 100 mls @ 100 mls/hr IVPB Q8 [facility]; Protocol Last Admin: 08/20/18 00:30 Dose: 100 mls/hr Insulin Human Lispro (Humalog) 0 units SC ACHS [facility]; Protocol Last Admin: 08/20/18 07:41 Dose: Not Given Losartan Potassium (Cozaar) 50 mg PO DAILY [facility] Last Admin: 08/19/18 08:20 Dose: 50 mg Metoprolol Tartrate (Lopressor) 100 mg PO Q12 [facility] Last Admin: 08/19/18 21:08 Dose: 100 mg Ranolazine (Ranexa) 500 mg PO BID [facility] Last Admin: 08/19/18 17:58 Dose: 500 mg - Labs Labs: 08/20/18 04:20 08/20/18 04:20 PT 13.8 Seconds (9.8-13.1) H 08/16/18 07:50 INR 1.2 08/16/18 07:50 APTT 26.1 Seconds (25.6-37.1) 08/16/18 07:50 - Constitutional Appears: Well, Non-toxic, No Acute Distress - Head Exam Head Exam: ATRAUMATIC, NORMOCEPHALIC - Eye Exam Eye Exam: EOMI - ENT Exam ENT Exam: Mucous Membranes Moist - Respiratory Exam Respiratory Exam: NORMAL BREATHING PATTERN - Cardiovascular Exam Cardiovascular Exam: REGULAR RHYTHM - GI/Abdominal Exam GI & Abdominal Exam: Soft. absent: Distended, Guarding, Tenderness Additional comments: PCT in place, area cdi, no leakage, bilious fluid in drain - Extremities Exam Extremities Exam: absent: Calf Tenderness, Pedal Edema - Neurological Exam Neurological Exam: Alert, Awake, Oriented x3 - Psychiatric Exam Psychiatric exam: Normal Affect, Normal Mood - Skin Skin Exam: Dry, Intact, Normal Color, Warm Assessment and Plan - Assessment and Plan (Free Text) Assessment: 62 yr old male with acute cholecystitis (resolved) s/p PCT placement Plan: continue pain control as needed MRCP shows no biliary obstruction will continue to monitor d/t elevated bilirubin plan for outpatient follow up to schedule cholecystectomy will d/w Dr. Tracie Christensen, PGY 1
[2018-08-20] MEDS: Ranolazine 500 mg Extended Release Tablets PO SCH ×2 (09:32→16:14)
[2018-08-20] MEDS: Digoxin 250 mcg (0.25 mg) Tab PO SCH (09:32)
[2018-08-20] MEDS: Enoxaparin 120 mg Syringe SC SCH ×2 (09:33→20:42)
--- NOTE | 2018-08-20 11:00 | CP.PCM.PN ---
Subjective - Date & Time of Evaluation Date of Evaluation: 08/20/18 Time of Evaluation: 11:00 - Subjective Subjective: Patient is seen and examined. No acute event overnight. Pt had no complain as per today, he ate regular food today, and had no nausea, vomiting, abd pain or diarrhea. Objective - Vital Signs/Intake and Output Vital Signs (last 24 hours): Temp Pulse Resp BP Pulse Ox 98.9 F 68 20 158/85 H 95 08/20/18 08:00 08/20/18 09:33 08/20/18 08:00 08/20/18 09:33 08/20/18 08:00 Intake and Output: 08/20/18 08/20/18 06:59 18:59 Intake Total 760 100 Output Total 1485 250 Balance -725 -150 - Medications Medications: Current Medications Acyclovir (Zovirax) 400 mg PO BID [facility]; Protocol Atorvastatin Calcium (Lipitor) 20 mg PO HS [facility] Last Admin: 08/19/18 21:08 Dose: 20 mg Dextrose (Dextrose 50% Inj) 0 ml IV STAT PRN; Protocol PRN Reason: Hypoglycemia Protocol Dextrose (Glutose 15) 0 gm PO ONCE PRN; Protocol PRN Reason: Hypoglycemia Protocol Dextrose (Dextrose 50% Inj) 0 ml IV STAT PRN; Protocol PRN Reason: Hypoglycemia Protocol Dextrose (Glutose 15) 0 gm PO ONCE PRN; Protocol PRN Reason: Hypoglycemia Protocol Digoxin (Lanoxin) 0.25 mg PO DAILY [facility] Last Admin: 08/20/18 09:32 Dose: 0.25 mg Docusate Sodium (Colace) 100 mg PO DAILY [facility] Last Admin: 08/20/18 09:32 Dose: 100 mg Enoxaparin Sodium (Lovenox) 110 mg SC Q12 [facility]; Protocol Last Admin: 08/20/18 09:33 Dose: 110 mg Glucagon (Glucagen Diagnostic Kit) 0 mg IM STAT PRN; Protocol PRN Reason: Hypoglycemia Protocol Glucagon (Glucagen Diagnostic Kit) 0 mg IM STAT PRN; Protocol PRN Reason: Hypoglycemia Protocol Amikacin Sulfate 250 mg/ (Sodium Chloride) 101 mls @ 100.609 mls/hr IVPB Q24H [facility]; Protocol Last Admin: 08/19/18 15:18 Dose: 100.609 mls/hr Piperacillin Sod/Tazobactam (Sod 2.25 gm/ Sodium Chloride) 100 mls @ 100 mls/hr IVPB Q8 [facility]; Protocol Last Admin: 08/20/18 09:34 Dose: 100 mls/hr Insulin Human Lispro (Humalog) 0 units SC ACHS [facility]; Protocol Last Admin: 08/20/18 07:41 Dose: Not Given Losartan Potassium (Cozaar) 50 mg PO DAILY [facility] Last Admin: 08/20/18 09:33 Dose: 50 mg Metoprolol Tartrate (Lopressor) 100 mg PO Q12 [facility] Last Admin: 08/20/18 09:33 Dose: 100 mg Ranolazine (Ranexa) 500 mg PO BID [facility] Last Admin: 08/20/18 09:32 Dose: 500 mg - Labs Labs: 08/20/18 04:20 08/20/18 04:20 PT 13.8 Seconds (9.8-13.1) H 08/16/18 07:50 INR 1.2 08/16/18 07:50 APTT 26.1 Seconds (25.6-37.1) 08/16/18 07:50 - Constitutional Appears: Well, Non-toxic, No Acute Distress - Head Exam Head Exam: ATRAUMATIC, NORMAL INSPECTION, NORMOCEPHALIC - Eye Exam Eye Exam: EOMI, Normal appearance, PERRL Pupil Exam: NORMAL ACCOMODATION, PERRL - ENT Exam ENT Exam: Mucous Membranes Moist, Normal Exam - Neck Exam Neck Exam: Full ROM, Normal Inspection - Respiratory Exam Respiratory Exam: Clear to Ausculation Bilateral, NORMAL BREATHING PATTERN - Cardiovascular Exam Cardiovascular Exam: REGULAR RHYTHM, +S1, +S2 - GI/Abdominal Exam GI & Abdominal Exam: Soft, Normal Bowel Sounds - Extremities Exam Extremities Exam: Full ROM, Normal Capillary Refill, Normal Inspection - Back Exam Back Exam: NORMAL INSPECTION. absent: CVA tenderness (L), CVA tenderness (R) - Neurological Exam Neurological Exam: Alert, Awake, Oriented x3 - Psychiatric Exam Psychiatric exam: Normal Affect, Normal Mood - Skin Skin Exam: Dry, Intact, Normal Color, Warm Assessment and Plan - Assessment and Plan (Free Text) Assessment: Assessment: Pt is a 62 yo male with PMH of A.fib with RVR, HTN, CHF, DM2, hyperlipidemia, presented to ER due to Epigastric/LUQ pain that started today at 4:30. Upon arrival patient had fever, tachycardic and high lactic acid with + acute cholysestites with possible infiltrate; Patient is admitted to telemetry for sepsis abd acute cholysistitis treatment. S/P Cholecystostomy tube placement day 3. CT:Distended gallbladder with cholelithaisis, limited pericholecystic fluid suspected Possible cholecystitis. + R and L diverticula, Enlargre prostate gland and L1 anterior compression fracture, age indeterminate. RUQ US: + Cholecystitis, cholelithiasis and sludge identified within the lumen of gallbladder Chest X-ray: mild-moderate pulmonary vascular congestion, no definite airspace disease b/l. Cardiomegaly not excluded Repeat Chest X-ray: Positive for Pulmonary vascular congestion, no sign of infiltrate or consolidation. Acute cholecystitis S/P Percutaneous cholecystostomy tube placement day 3 Pain resolved Total bili improving AST/ALT resolved MRCP + cholesystitis. No common bile duct dilation. HIDA + Cholesystitis Ct scan and RUQ US: + for cholecystitis Administer Diet as tolerated Minimal drainage of tube As per surgery will do cholecystectomy after cardiac clearance. 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 Xray is negative for consolidation. Stop Azithromycin 500mg Acute kidney Injury Resolved Cr 1.3->1.9->1.7->1.3 BUN 18->25->19->16 GFR>60 Stop D10 NS 1L, 60ml/hr, continue mild hydration with .45% NS Strict I and O HTN Chronic, controlled Norvasc and aldactone Stopped DM2 Chronic, controlled Hold home medication Use sliding scale for insulin use. Hyperlipidemia Chronic, Controlled Continue home medication DVT prophylaxis SCD Therapeutic Lovenex 110 bid dose for A fib with RVR
--- NOTE | 2018-08-20 12:33 | CP.PCM.PN ---
Subjective - Date & Time of Evaluation Date of Evaluation: 08/20/18 Time of Evaluation: 12:30 - Subjective Subjective: Patient denies abdominal pain. Cholecystostomy tube draining normally. Objective - Vital Signs/Intake and Output Vital Signs (last 24 hours): Temp Pulse Resp BP Pulse Ox 98.9 F 68 20 158/85 H 95 08/20/18 08:00 08/20/18 09:33 08/20/18 08:00 08/20/18 09:33 08/20/18 08:00 Intake and Output: 08/20/18 08/20/18 06:59 18:59 Intake Total 760 100 Output Total 1485 250 Balance -725 -150 - Medications Medications: Current Medications Acyclovir (Zovirax) 400 mg PO BID [facility]; Protocol Atorvastatin Calcium (Lipitor) 20 mg PO HS [facility] Last Admin: 08/19/18 21:08 Dose: 20 mg Dextrose (Dextrose 50% Inj) 0 ml IV STAT PRN; Protocol PRN Reason: Hypoglycemia Protocol Dextrose (Glutose 15) 0 gm PO ONCE PRN; Protocol PRN Reason: Hypoglycemia Protocol Dextrose (Dextrose 50% Inj) 0 ml IV STAT PRN; Protocol PRN Reason: Hypoglycemia Protocol Dextrose (Glutose 15) 0 gm PO ONCE PRN; Protocol PRN Reason: Hypoglycemia Protocol Digoxin (Lanoxin) 0.25 mg PO DAILY [facility] Last Admin: 08/20/18 09:32 Dose: 0.25 mg Docusate Sodium (Colace) 100 mg PO DAILY [facility] Last Admin: 08/20/18 09:32 Dose: 100 mg Enoxaparin Sodium (Lovenox) 110 mg SC Q12 [facility]; Protocol Last Admin: 08/20/18 09:33 Dose: 110 mg Glucagon (Glucagen Diagnostic Kit) 0 mg IM STAT PRN; Protocol PRN Reason: Hypoglycemia Protocol Glucagon (Glucagen Diagnostic Kit) 0 mg IM STAT PRN; Protocol PRN Reason: Hypoglycemia Protocol Amikacin Sulfate 250 mg/ (Sodium Chloride) 101 mls @ 100.609 mls/hr IVPB Q24H [facility]; Protocol Last Admin: 08/19/18 15:18 Dose: 100.609 mls/hr Piperacillin Sod/Tazobactam (Sod 2.25 gm/ Sodium Chloride) 100 mls @ 100 mls/hr IVPB Q8 [facility]; Protocol Last Admin: 08/20/18 09:34 Dose: 100 mls/hr Insulin Human Lispro (Humalog) 0 units SC ACHS [facility]; Protocol Last Admin: 08/20/18 07:41 Dose: Not Given Losartan Potassium (Cozaar) 50 mg PO DAILY [facility] Last Admin: 08/20/18 09:33 Dose: 50 mg Metoprolol Tartrate (Lopressor) 100 mg PO Q12 [facility] Last Admin: 08/20/18 09:33 Dose: 100 mg Ranolazine (Ranexa) 500 mg PO BID [facility] Last Admin: 08/20/18 09:32 Dose: 500 mg - Labs Labs: 08/20/18 04:20 08/20/18 04:20 PT 13.8 Seconds (9.8-13.1) H 08/16/18 07:50 INR 1.2 08/16/18 07:50 APTT 26.1 Seconds (25.6-37.1) 08/16/18 07:50 - Head Exam Head Exam: ATRAUMATIC - Eye Exam Eye Exam: Normal appearance - ENT Exam ENT Exam: Normal Exam - Neck Exam Neck Exam: Full ROM - Respiratory Exam Respiratory Exam: NORMAL BREATHING PATTERN - GI/Abdominal Exam GI & Abdominal Exam: Soft, Normal Bowel Sounds. absent: Tenderness Assessment and Plan (1) Acute cholecystitis Assessment & Plan: Bili about the same as yesterday and Alk phos moderately elevated. MRCP from yesterday negative. Labs may reflect some gallbladder edema. If further testing of biliary tree deemed necessary would perform a cholangiogram via the cholecystostomy tube. Status: Acute (2) Sepsis Status: Acute
[2018-08-20] MEDS: Sodium Chloride 0.45% 1,000 ML IV SCH (12:52)
--- NOTE | 2018-08-21 06:43 | CP.PCM.PN ---
Subjective - Date & Time of Evaluation Date of Evaluation: 08/21/18 Time of Evaluation: 06:43 Objective - Vital Signs/Intake and Output Vital Signs (last 24 hours): Temp Pulse Resp BP Pulse Ox 98.8 F 68 20 162/86 H 95 08/21/18 00:48 08/21/18 00:48 08/21/18 00:48 08/21/18 00:48 08/21/18 00:48 Intake and Output: 08/20/18 08/21/18 18:59 06:59 Intake Total 660 100 Output Total 675 270 Balance -15 -170 - Medications Medications: Current Medications Acyclovir (Zovirax) 400 mg PO BID [facility]; Protocol Last Admin: 08/20/18 12:45 Dose: 400 mg Atorvastatin Calcium (Lipitor) 20 mg PO HS [facility] Last Admin: 08/20/18 21:15 Dose: 20 mg Dextrose (Dextrose 50% Inj) 0 ml IV STAT PRN; Protocol PRN Reason: Hypoglycemia Protocol Dextrose (Glutose 15) 0 gm PO ONCE PRN; Protocol PRN Reason: Hypoglycemia Protocol Dextrose (Dextrose 50% Inj) 0 ml IV STAT PRN; Protocol PRN Reason: Hypoglycemia Protocol Dextrose (Glutose 15) 0 gm PO ONCE PRN; Protocol PRN Reason: Hypoglycemia Protocol Digoxin (Lanoxin) 0.25 mg PO DAILY [facility] Last Admin: 08/20/18 09:32 Dose: 0.25 mg Docusate Sodium (Colace) 100 mg PO DAILY [facility] Last Admin: 08/20/18 09:32 Dose: 100 mg Enoxaparin Sodium (Lovenox) 110 mg SC Q12 [facility]; Protocol Last Admin: 08/20/18 20:42 Dose: 110 mg Glucagon (Glucagen Diagnostic Kit) 0 mg IM STAT PRN; Protocol PRN Reason: Hypoglycemia Protocol Glucagon (Glucagen Diagnostic Kit) 0 mg IM STAT PRN; Protocol PRN Reason: Hypoglycemia Protocol Amikacin Sulfate 250 mg/ (Sodium Chloride) 101 mls @ 100.609 mls/hr IVPB Q24H [facility]; Protocol Last Admin: 08/20/18 16:12 Dose: 100.609 mls/hr Piperacillin Sod/Tazobactam (Sod 2.25 gm/ Sodium Chloride) 100 mls @ 100 mls/hr IVPB Q8 [facility]; Protocol Last Admin: 08/21/18 00:40 Dose: 100 mls/hr Insulin Human Lispro (Humalog) 0 units SC ACHS [facility]; Protocol Last Admin: 08/20/18 21:16 Dose: Not Given Losartan Potassium (Cozaar) 50 mg PO DAILY [facility] Last Admin: 08/20/18 09:33 Dose: 50 mg Metoprolol Tartrate (Lopressor) 100 mg PO Q12 [facility] Last Admin: 08/20/18 20:43 Dose: 100 mg Ranolazine (Ranexa) 500 mg PO BID [facility] Last Admin: 08/20/18 16:14 Dose: 500 mg - Labs Labs: 08/20/18 04:20 08/20/18 04:20 PT 13.8 Seconds (9.8-13.1) H 08/16/18 07:50 INR 1.2 08/16/18 07:50 APTT 26.1 Seconds (25.6-37.1) 08/16/18 07:50
[2018-08-21 06:51] LABS: ALB/GLOB RATIO 0.9 (1.0-2.1); ALBUMIN 3.6 g/dL (3.5-5.0); ALT/SGPT 79 U/L (21-72); AST/SGOT 45 U/L (17-59); BLOOD UREA NITROGEN 13 mg/dl (9-20); CALCIUM 8.7 mg/dL (8.4-10.2); GFR NON-AFRICAN AMERICAN > 60
--- NOTE | 2018-08-21 07:40 | CP.PCM.PN ---
Subjective - Date & Time of Evaluation Date of Evaluation: 08/21/18 Time of Evaluation: 07:39 - Subjective Subjective: Surgery Pt seen and examined. No acute events. Denies fevr, nausea , vomiting, CP , SOB. Drain in place. bilious output. 200cc /24hrs. Objective - Vital Signs/Intake and Output Vital Signs (last 24 hours): Temp Pulse Resp BP Pulse Ox 98.8 F 68 20 162/86 H 95 08/21/18 00:48 08/21/18 00:48 08/21/18 00:48 08/21/18 00:48 08/21/18 00:48 Intake and Output: 08/21/18 08/21/18 06:59 18:59 Intake Total 100 Output Total 270 Balance -170 - Medications Medications: Current Medications Acyclovir (Zovirax) 400 mg PO BID [facility]; Protocol Last Admin: 08/20/18 12:45 Dose: 400 mg Atorvastatin Calcium (Lipitor) 20 mg PO HS [facility] Last Admin: 08/20/18 21:15 Dose: 20 mg Dextrose (Dextrose 50% Inj) 0 ml IV STAT PRN; Protocol PRN Reason: Hypoglycemia Protocol Dextrose (Glutose 15) 0 gm PO ONCE PRN; Protocol PRN Reason: Hypoglycemia Protocol Dextrose (Dextrose 50% Inj) 0 ml IV STAT PRN; Protocol PRN Reason: Hypoglycemia Protocol Dextrose (Glutose 15) 0 gm PO ONCE PRN; Protocol PRN Reason: Hypoglycemia Protocol Digoxin (Lanoxin) 0.25 mg PO DAILY [facility] Last Admin: 08/20/18 09:32 Dose: 0.25 mg Docusate Sodium (Colace) 100 mg PO DAILY [facility] Last Admin: 08/20/18 09:32 Dose: 100 mg Enoxaparin Sodium (Lovenox) 110 mg SC Q12 [facility]; Protocol Last Admin: 08/20/18 20:42 Dose: 110 mg Glucagon (Glucagen Diagnostic Kit) 0 mg IM STAT PRN; Protocol PRN Reason: Hypoglycemia Protocol Glucagon (Glucagen Diagnostic Kit) 0 mg IM STAT PRN; Protocol PRN Reason: Hypoglycemia Protocol Amikacin Sulfate 250 mg/ (Sodium Chloride) 101 mls @ 100.609 mls/hr IVPB Q24H [facility]; Protocol Last Admin: 08/20/18 16:12 Dose: 100.609 mls/hr Piperacillin Sod/Tazobactam (Sod 2.25 gm/ Sodium Chloride) 100 mls @ 100 mls/hr IVPB Q8 [facility]; Protocol Last Admin: 08/21/18 00:40 Dose: 100 mls/hr Insulin Human Lispro (Humalog) 0 units SC ACHS [facility]; Protocol Last Admin: 08/20/18 21:16 Dose: Not Given Losartan Potassium (Cozaar) 50 mg PO DAILY [facility] Last Admin: 08/20/18 09:33 Dose: 50 mg Metoprolol Tartrate (Lopressor) 100 mg PO Q12 [facility] Last Admin: 08/20/18 20:43 Dose: 100 mg Ranolazine (Ranexa) 500 mg PO BID [facility] Last Admin: 08/20/18 16:14 Dose: 500 mg - Labs Labs: 08/20/18 04:20 08/21/18 06:00 PT 13.8 Seconds (9.8-13.1) H 08/16/18 07:50 INR 1.2 08/16/18 07:50 APTT 26.1 Seconds (25.6-37.1) 08/16/18 07:50 - Constitutional Appears: No Acute Distress - Head Exam Head Exam: ATRAUMATIC, NORMAL INSPECTION, NORMOCEPHALIC - Eye Exam Eye Exam: EOMI, Normal appearance, PERRL Pupil Exam: NORMAL ACCOMODATION, PERRL - ENT Exam ENT Exam: Mucous Membranes Moist - Neck Exam Neck Exam: Normal Inspection - Respiratory Exam Respiratory Exam: NORMAL BREATHING PATTERN - Cardiovascular Exam Cardiovascular Exam: REGULAR RHYTHM - GI/Abdominal Exam GI & Abdominal Exam: Soft, Normal Bowel Sounds. absent: Distended, Firm, Guarding, Rigid, Tenderness Additional comments: drain on R side in place. dressing clean. bilious drain 200cc /24hrs. - Extremities Exam Extremities Exam: Full ROM - Back Exam Back Exam: NORMAL INSPECTION - Neurological Exam Neurological Exam: Alert, Awake, CN II-XII Intact, Normal Gait, Oriented x3 - Psychiatric Exam Psychiatric exam: Normal Affect, Normal Mood - Skin Skin Exam: Dry, Intact, Normal Color, Warm Assessment and Plan - Assessment and Plan (Free Text) Assessment: 62 yr old male with acute cholecystitis (resolved) s/p PCT placement tbili trending down. Plan: continue pain control as needed MRCP shows no biliary obstruction plan for outpatient follow up to schedule cholecystectomy will d/w Dr. Hodges
[2018-08-21] MEDS: Insulin Lispro (humaLOG) 100 Units/ml Inj SC SCH ×4 (08:16→21:54)
[2018-08-21] MEDS: Digoxin 250 mcg (0.25 mg) Tab PO SCH (09:20)
[2018-08-21] MEDS: Enoxaparin 120 mg Syringe SC SCH (09:21)
[2018-08-21] MEDS: Ranolazine 500 mg Extended Release Tablets PO SCH ×2 (09:22→17:15)
[2018-08-21 10:55] VITALS: BMI 37.5
--- NOTE | 2018-08-21 11:52 | CP.PCM.PN ---
Subjective - Date & Time of Evaluation Date of Evaluation: 08/21/18 Time of Evaluation: 11:52 - Subjective Subjective: Patient w/o abdominal pain. Objective - Vital Signs/Intake and Output Vital Signs (last 24 hours): Temp Pulse Resp BP Pulse Ox 98.1 F 73 18 170/95 H 96 08/21/18 09:03 08/21/18 09:21 08/21/18 09:03 08/21/18 09:21 08/21/18 09:03 Intake and Output: 08/21/18 08/21/18 06:59 18:59 Intake Total 400 Output Total 455 Balance -55 - Medications Medications: Current Medications Acyclovir (Zovirax) 400 mg PO BID [facility]; Protocol Last Admin: 08/21/18 09:19 Dose: 400 mg Atorvastatin Calcium (Lipitor) 20 mg PO HS [facility] Last Admin: 08/20/18 21:15 Dose: 20 mg Dextrose (Dextrose 50% Inj) 0 ml IV STAT PRN; Protocol PRN Reason: Hypoglycemia Protocol Dextrose (Glutose 15) 0 gm PO ONCE PRN; Protocol PRN Reason: Hypoglycemia Protocol Dextrose (Dextrose 50% Inj) 0 ml IV STAT PRN; Protocol PRN Reason: Hypoglycemia Protocol Dextrose (Glutose 15) 0 gm PO ONCE PRN; Protocol PRN Reason: Hypoglycemia Protocol Digoxin (Lanoxin) 0.25 mg PO DAILY [facility] Last Admin: 08/21/18 09:20 Dose: 0.25 mg Docusate Sodium (Colace) 100 mg PO DAILY [facility] Last Admin: 08/21/18 09:19 Dose: 100 mg Enoxaparin Sodium (Lovenox) 110 mg SC Q12 [facility]; Protocol Last Admin: 08/21/18 09:21 Dose: 110 mg Glucagon (Glucagen Diagnostic Kit) 0 mg IM STAT PRN; Protocol PRN Reason: Hypoglycemia Protocol Glucagon (Glucagen Diagnostic Kit) 0 mg IM STAT PRN; Protocol PRN Reason: Hypoglycemia Protocol Amikacin Sulfate 250 mg/ (Sodium Chloride) 101 mls @ 100.609 mls/hr IVPB Q24H [facility]; Protocol Last Admin: 08/20/18 16:12 Dose: 100.609 mls/hr Piperacillin Sod/Tazobactam (Sod 2.25 gm/ Sodium Chloride) 100 mls @ 100 mls/hr IVPB Q8 [facility]; Protocol Last Admin: 08/21/18 09:26 Dose: 100 mls/hr Insulin Human Lispro (Humalog) 0 units SC ACHS [facility]; Protocol Last Admin: 08/21/18 08:16 Dose: Not Given Losartan Potassium (Cozaar) 50 mg PO DAILY [facility] Last Admin: 08/21/18 09:20 Dose: 50 mg Metoprolol Tartrate (Lopressor) 100 mg PO Q12 [facility] Last Admin: 08/21/18 09:21 Dose: 100 mg Ranolazine (Ranexa) 500 mg PO BID [facility] Last Admin: 08/21/18 09:22 Dose: 500 mg - Labs Labs: 08/20/18 04:20 08/21/18 06:00 PT 13.8 Seconds (9.8-13.1) H 08/16/18 07:50 INR 1.2 08/16/18 07:50 APTT 26.1 Seconds (25.6-37.1) 08/16/18 07:50 - Head Exam Head Exam: ATRAUMATIC - Eye Exam Eye Exam: Normal appearance - ENT Exam ENT Exam: Normal Exam - Neck Exam Neck Exam: Full ROM - Respiratory Exam Respiratory Exam: NORMAL BREATHING PATTERN - Cardiovascular Exam Cardiovascular Exam: REGULAR RHYTHM, +S1, +S2 - GI/Abdominal Exam GI & Abdominal Exam: Soft. absent: Tenderness Assessment and Plan (1) Acute cholecystitis Assessment & Plan: Patient feeling well. Bili trending downward though ALP a little high. MRCP 2 days ago negative. Management as per surgery. Status: Acute (2) Sepsis Status: Acute
[2018-08-21] MEDS ORDERED: Lidocaine 1% Inj (20ml) ONE (13:33)
--- NOTE | 2018-08-21 13:33 | CP.PCM.DIS ---
Provider - Provider Date of Admission: 08/16/18 10:36 Attending physician: Magali Stanley MD Time Spent in preparation of Discharge (in minutes): 20 Diagnosis - Discharge Diagnosis (1) Sepsis Status: Resolved (2) Acute cholecystitis Status: Acute (3) Atrial fibrillation with RVR Status: Chronic (4) CHF (congestive heart failure) Status: Chronic Hospital Course - Lab Results Lab Results: Micro Results 08/17/18 13:00 Bile Gram Stain - Final 08/17/18 13:00 Bile Body Fluid Culture - Final No growth. 08/16/18 07:50 Blood Blood Culture - Final NO GROWTH AFTER 5 DAYS 08/16/18 07:50 Blood Gram Stain - Final TEST NOT PERFORMED 08/16/18 07:50 Blood Blood Culture - Final NO GROWTH AFTER 5 DAYS 08/16/18 07:50 Blood Gram Stain - Final TEST NOT PERFORMED 08/16/18 18:11 Nose MRSA Culture (Admit) - Final MRSA NOT DETECTED 08/16/18 08:00 Urine,Clean Catch Urine Culture - Final <10,000 CFU/ML. MULTIPLE SPECIES. PROBABLE CONTAMINATION. Most Recent Lab Values WBC 6.2 K/uL (4.8-10.8) 08/20/18 04:20 RBC 4.46 Mil/uL (4.40-5.90) 08/20/18 04:20 Hgb 12.7 g/dL (12.0-18.0) 08/20/18 04:20 Hct 38.4 % (35.0-51.0) 08/20/18 04:20 MCV 86.2 fl (80.0-94.0) 08/20/18 04:20 MCH 28.6 pg (27.0-31.0) 08/20/18 04:20 MCHC 33.2 g/dL (33.0-37.0) 08/20/18 04:20 RDW 16.4 % (11.5-14.5) H 08/20/18 04:20 Plt Count 152 K/uL (130-400) 08/20/18 04:20 MPV 9.3 fl (7.2-11.7) 08/19/18 04:20 Neut % (Auto) 67.6 % (50.0-75.0) 08/19/18 04:20 Lymph % (Auto) 15.4 % (20.0-40.0) L 08/19/18 04:20 Ness % (Auto) 13.5 % (0.0-10.0) H 08/19/18 04:20 Eos % (Auto) 3.0 % (0.0-4.0) 08/19/18 04:20 Baso % (Auto) 0.5 % (0.0-2.0) 08/19/18 04:20 Neut # (Auto) 3.8 K/uL (1.8-7.0) 08/19/18 04:20 Lymph # (Auto) 0.9 K/uL (1.0-4.3) L 08/19/18 04:20 Ness # (Auto) 0.8 K/uL (0.0-0.8) 08/19/18 04:20 Eos # (Auto) 0.2 K/uL (0.0-0.7) 08/19/18 04:20 Baso # (Auto) 0.0 K/uL (0.0-0.2) 08/19/18 04:20 Neutrophils % (Manual) 79 % (42-75) H 08/18/18 04:30 Lymphocytes % (Manual) 12 % (20-50) L 08/18/18 04:30 Reactive Lymphs % 1 % (0-0) H 08/18/18 04:30 Monocytes % (Manual) 8 % (0-10) 08/18/18 04:30 Platelet Estimate Normal (NORMAL) 08/18/18 04:30 Large Platelets Present 08/18/18 04:30 Anisocytosis (manual) Slight 08/18/18 04:30 Ovalocytes Slight 08/18/18 04:30 ESR 33 mm/hr (0-20) H 08/17/18 04:35 PT 13.8 Seconds (9.8-13.1) H 08/16/18 07:50 INR 1.2 08/16/18 07:50 APTT 26.1 Seconds (25.6-37.1) 08/16/18 07:50 pCO2 34 mm/Hg (35-45) L 08/16/18 19:12 pO2 64 mm/Hg (80-100) L 08/16/18 19:12 HCO3 24.9 mmol/L (21-28) 08/16/18 19:12 ABG pH 7.45 (7.35-7.45) 08/16/18 19:12 ABG Total CO2 24.6 mmol/L (22-28) 08/16/18 19:12 ABG O2 Saturation 95.5 % (95-98) 08/16/18 19:12 ABG Base Excess 0.1 mmol/L (-2.0-3.0) 08/16/18 19:12 Jamie Test Yes 08/16/18 19:12 ABG Potassium 3.9 mmol/L (3.6-5.2) 08/16/18 19:12 VBG pH 7.45 (7.32-7.43) H 08/16/18 11:22 VBG pCO2 35 mmHg (40-60) L 08/16/18 11:22 VBG HCO3 25.3 mmol/L 08/16/18 11:22 VBG Total CO2 25.4 mmol/L (22-28) 08/16/18 11:22 VBG O2 Sat (Calc) 92.9 % (40-65) H 08/16/18 11:22 VBG Base Excess 0.7 mmol/L (0.0-2.0) 08/16/18 11:22 VBG Potassium 3.3 mmol/L (3.6-5.2) L 08/16/18 11:22 A-a O2 Difference 93.0 mm/Hg 08/16/18 19:12 Sodium 133.0 mmol/L (132-148) 08/16/18 19: Chloride 100.0 mmol/L (98-107) 08/16/18 19:12 Glucose 170 mg/dL (75-110) H 08/16/18 19:12 Lactate 2.5 mmol/L (0.7-2.1) H 08/16/18 19:12 Vent Mode N/c 08/16/18 19:12 FiO2 28.0 % 08/16/18 19:12 Blood Gas Comments Lac=2.9 08/16/18 14:19 Crit Value Called To toribio Ray 08/16/18 14:19 Crit Value Called By 22 08/16/18 14:19 Crit Value Read Back Y 08/16/18 14:19 Blood Gas Notified Time 1425 08/16/18 14:19 Sodium 136 mmol/l (132-148) 08/21/18 06:00 Potassium 4.3 MMOL/L (3.6-5.0) 08/21/18 06:00 Chloride 104 mmol/L (98-107) 08/21/18 06:00 Carbon Dioxide 24 mmol/L (22-30) 08/21/18 06:00 Anion Gap 12 (10-20) 08/21/18 06:00 BUN 13 mg/dl (9-20) 08/21/18 06:00 Creatinine 1.1 mg/dl (0.8-1.5) 08/21/18 06:00 Est GFR ( Amer) > 60 08/21/18 06:00 Est GFR (Non-Af Amer) > 60 08/21/18 06:00 POC Glucose (mg/dL) 173 mg/dL (65-110) H 08/21/18 11:32 Random Glucose 120 mg/dL (75-110) H 08/21/18 06:00 Lactic Acid 0.8 MMOL/L (0.7-2.1) 08/17/18 04:35 Calcium 8.7 mg/dL (8.4-10.2) 08/21/18 06:00 Phosphorus 4.5 mg/dl (2.5-4.5) 08/18/18 04:30 Magnesium 1.8 MG/DL (1.6-2.3) 08/18/18 04:30 Total Bilirubin 3.7 mg/dl (0.2-1.3) H 08/21/18 06:00 Direct Bilirubin 5.2 mg/ml (0.0-0.4) H 08/17/18 07:08 AST 45 U/L (17-59) 08/21/18 06:00 ALT 79 U/L (21-72) H 08/21/18 06:00 Alkaline Phosphatase 272 U/L (38-126) H 08/21/18 06:00 Troponin I 0.0150 ng/mL (0.00-0.120) 08/16/18 07:50 NT-Pro-B Natriuret Pep 1900 pg/ml (0-900) H 08/16/18 07:50 Total Protein 7.4 G/DL (6.3-8.2) 08/21/18 06:00 Albumin 3.6 g/dL (3.5-5.0) 08/21/18 06:00 Globulin 3.8 gm/dL (2.2-3.9) 08/21/18 06:00 Albumin/Globulin Ratio 0.9 (1.0-2.1) L 08/21/18 06:00 Lipase 105 U/L (23-300) 08/16/18 07:50 Procalcitonin 53.48 NG/ML (0.19-0.49) H 08/17/18 04:35 Arterial Blood Potassium 3.9 mmol/L (3.6-5.2) 08/16/18 19:12 Venous Blood Potassium 3.3 mmol/L (3.6-5.2) L 08/16/18 11:22 Urine Color Huyen (YELLOW) 08/16/18 08:00 Urine Clarity Slighty-cloudy (Clear) 08/16/18 08:00 Urine pH 5.0 (5.0-8.0) 08/16/18 08:00 Ur Specific [place] 1.019 (1.003-1.030) 08/16/18 08:00 Urine Protein 100 mg/dL (NEGATIVE) 08/16/18 08:00 Urine Glucose (UA) Neg mg/dL (Normal) 08/16/18 08:00 Urine Ketones Negative mg/dL (NEGATIVE) 08/16/18 08:00 Urine Blood Small (NEGATIVE) 08/16/18 08:00 Urine Nitrate Negative (NEGATIVE) 08/16/18 08:00 Urine Bilirubin Negative (NEGATIVE) 08/16/18 08:00 Urine Urobilinogen 4.0 mg/dL (0.2-1.0) 08/16/18 08:00 Ur Leukocyte Esterase Neg Cand[place]/uL (Negative) 08/16/18 08:00 Urine Microscopic WBC 3 /hpf (0-5) 08/16/18 08:00 Random Gentamicin < 0.6 ug/mL 08/17/18 16:14 Digoxin 0.4 ng/mL (0.8-2.0) L 08/16/18 08:10 Influenza Typ A,B (EIA) Negative for flu a/b (NEGATIVE) 08/16/18 08:10 - Hospital Course Hospital Course: Pt is a 62 yo male with PMH of A.fib with RVR, HTN, CHF, DM2, hyperlipidemia, presented to ER due to Epigastric/LUQ pain. In ER patient patient was febrile, tackycardic and lactic acid of 4.6, code sepsis was called, IV abx started, and sepsis workup began. Pt was admitted to Telemetry for further treatment of Sepsis. In the floor patient became afebrile for >24, vitals improved, Sepsis resolved. Patient was workup for Cholesystitis, GI and surgery were consulted and due to A.fib with RVR, patient need to be cleared by cardio before performing Cholecystoctomy, in meanwhile they recommended cholecystostomy tube and start on ABx. Procedure was preformed by IR and Drainage tube was place. Patient received Amikacin, Zosyn 2.25 as per ID recommendation due to a que stionable Pneumonia on Chest Xray, he also received Azithromycin 500mg 3 days. Surgery will not be performed before cario clearance, Patient will be discharged with PICC line to continue Abx, and follow up with cardiology for cath on Friday and then elective cholecystectomy as outpatient. Patient seen and examined today at bedside. Patient had no acute event overnight. He slept comfortable and is able to tolerate food with no issue, patient had no complain and want to go home. Patient chart reviewed, Vitals wnl, afebrile >24h, Physical Exam +BS, neg tenderness, hermes tube noted with minimal drain. Patient is stable to be discharged Patient have to follow up with PCP in 1-2 days Patient have an appointment with cashier wrapper on Friday08/26/[address] Hodges after DC to schedule to get out drain and remove gallbladder Continue home medication. Amikacin 7 vial sent to pharmacy Zosyn 2.5 21 bag was sent to pharmacy Patient will be Receiving abx at home via PICC line. Acyclovir given due to herpatic lesion on lip *drain cholecystostomy tube and need to be measured CT:Distended gallbladder with cholelithaisis, limited pericholecystic fluid suspected Possible cholecystitis. + R and L diverticula, Enlarge prostate gland and L1 anterior compression fracture, age indeterminate. RUQ US: + Cholecystitis, cholelithiasis and sludge identified within the lumen of gallbladder Chest X-ray: mild-moderate pulmonary vascular congestion, no definite airspace disease b/l. Cardiomegaly not excluded EKG: Afib with RVR Discharge Exam - Head Exam Head Exam: ATRAUMATIC, NORMAL INSPECTION, NORMOCEPHALIC - Eye Exam Eye Exam: EOMI, Normal appearance, PERRL Pupil Exam: NORMAL ACCOMODATION, PERRL - Respiratory Exam Respiratory Exam: Clear to PA & Lateral, NORMAL BREATHING PATTERN, UNREMARKABLE Additional comments: Herpatic lesion noted on left lips, improving - Cardiovascular Exam Cardiovascular Exam: REGULAR RHYTHM, +S1, +S2 - GI/Abdominal Exam GI & Abdominal Exam: Normal Bowel Sounds, Unremarkable - Extremities Exam Extremities exam: full ROM - Neurological Exam Neurological exam: Alert, Oriented x3 - Psychiatric Exam Psychiatric exam: Normal Affect, Normal Mood - Skin Skin Exam: Dry, Intact, Normal Color, Warm Discharge Plan - Discharge Medications Prescriptions: RX: Acyclovir [Zovirax] 400 mg PO BID #10 tab Amikacin Sulfate [Amikacin] 240 mg IV DAILY #7 vial RX: Atorvastatin [Lipitor] 20 mg PO HS #30 tab RX: Metoprolol Tartrate [Lopressor] 100 mg PO Q12 #60 tab Piperacill/Tazo 2.25gm in Dex [Zosyn 2.25 Gm IV Premix] 2.25 gm IV Q8 #21 bag RX: Ranolazine [Ranexa] 500 mg PO BID #60 ter Rivaroxaban [Xarelto Starter Pack] 20 mg PO DAILY #30 tab - Follow Up Plan Condition: GOOD Disposition: HOME/ ROUTINE Patient education suggested?: Yes Instructions: Cholecystitis (DC) Additional Instructions: drain cholecystostomy tube . Measure daily Follow up at Dr. Hodges s office after DC to schedule to get drain and gallbladder removed. Referrals: Javon Hodges MD [Staff Provider] -
--- NOTE | 2018-08-21 13:49 | PCM.SURG1 ---
Surgeon's Initial Post Op Note - Surgeon's Notes Surgeon: Nathaniel Gallegos MD Air Commodore: NONE Type of Anesthesia: Local Pre-Operative Diagnosis: Infection Operative Findings: US showed patent right basilic vein Post-Operative Diagnosis: INfection Operation Performed: Single lumen picc placement right arm, 39 CM. Tip is in the SVC. Specimen/Specimens Removed: NONE Estimated Blood Loss: EBL {In ML}: 2 Blood Products Given: N/A Drains Used: No Drains Post-Op Condition: Fair Date of Surgery/Procedure: 08/21/18 Time of Surgery/Procedure: 13:45
--- NOTE | 2018-08-21 13:57 | VASCULAR ---
PROCEDURE: Date of procedure: 08/21/2018 Procedure: 1. Placement of a right arm PICC with ultrasound and fluoroscopic guidance, CPT 72938 2. PICC tip confirmation with spot radiograph and is in the superior vena cava Medications: 1 percent lidocaine Total Fluoro time: 5.2 seconds Radiation: 0.69 MGy EBL: 2 cc HISTORY: Infection requiring long-term IV antibiotics TECHNIQUE: Following informed consent and procedure time-out, the patient was placed supine on the interventional table and the right arm prepped and draped in the usual sterile fashion. Ultrasound showed a patent and compressible right basilic vein. After the skin was anesthetized with lidocaine, the basilic vein was accessed with micro micropuncture technique using ultrasound guidance. A guidewire was then advanced under fluoroscopic guidance into the superior vena cava. An image documenting ultrasound guidance for vascular access was permanently saved. The length of the single-lumen 4 Cymro PICC was trimmed to 39 centimeters and advanced through a peel-away sheath. The PICC was position with tip of PICC confirm a spot radiograph the superior vena cava. The PICC was secured to the patient's skin. The PICC was flushed. A biopatch and sterile dressing was applied. IMPRESSION: Placement of a single-lumen 4 Cymro PICC trimmed to 39 centimeters via right basilic vein. The tip of the PICC is confirmed with spot radiograph and is in the superior vena cava.
--- NOTE | 2018-08-21 13:59 | CT ---
PROCEDURE: Date of procedure: 08/17/2018 Procedure: 1. Percutaneous Cholecystostomy tube placement Medications: The patient was sedated by the anesthesiologist along with physiologic monitoring. 8 cubic centimeters lidocaine 2 percent Fluoroscopic time: 47.3 seconds Radiation: 30.71 mGy HISTORY: Acute cholecystitis TECHNIQUE: Following informed consent the patient right abdomen was marked. The patient was placed supine on the interventional table and procedure time-out was called. Ultrasound showed distended gallbladder. At the patient sedated, the skin was anesthetized with 2 percent lidocaine. Under direct ultrasound guidance, a [employer] catheter was advanced percutaneously into the gallbladder. Upon return of bile, an 035 wire was advanced into the gallbladder and was coiled within the gallbladder under fluoroscopy. The tract was dilated to accommodate 8.5 Swiss drainage catheter which was formed within the gallbladder. Position of the catheter was confirmed with contrast injection which showed a distended gallbladder with no flow across the cystic duct. IMPRESSION: Percutaneous placement of a cholecystostomy tube.
--- NOTE | 2018-08-21 16:16 | CP.PCM.PN ---
Subjective - Date & Time of Evaluation Date of Evaluation: 08/21/18 Time of Evaluation: 16:14 - Subjective Subjective: Pt seen and examined at bedside. No acute event over night. slept well. PICC line noted on the RIGHT upper extremity Objective - Vital Signs/Intake and Output Vital Signs (last 24 hours): Temp Pulse Resp BP Pulse Ox 99.4 F 80 18 148/80 98 08/21/18 13:46 08/21/18 13:46 08/21/18 13:46 08/21/18 13:46 08/21/18 13:46 Intake and Output: 08/21/18 08/21/18 06:59 18:59 Intake Total 400 Output Total 455 Balance -55 - Medications Medications: Current Medications Acyclovir (Zovirax) 400 mg PO BID [facility]; Protocol Last Admin: 08/21/18 09:19 Dose: 400 mg Atorvastatin Calcium (Lipitor) 20 mg PO HS [facility] Last Admin: 08/20/18 21:15 Dose: 20 mg Dextrose (Dextrose 50% Inj) 0 ml IV STAT PRN; Protocol PRN Reason: Hypoglycemia Protocol Dextrose (Glutose 15) 0 gm PO ONCE PRN; Protocol PRN Reason: Hypoglycemia Protocol Dextrose (Dextrose 50% Inj) 0 ml IV STAT PRN; Protocol PRN Reason: Hypoglycemia Protocol Dextrose (Glutose 15) 0 gm PO ONCE PRN; Protocol PRN Reason: Hypoglycemia Protocol Digoxin (Lanoxin) 0.25 mg PO DAILY [facility] Last Admin: 08/21/18 09:20 Dose: 0.25 mg Docusate Sodium (Colace) 100 mg PO DAILY [facility] Last Admin: 08/21/18 09:19 Dose: 100 mg Enoxaparin Sodium (Lovenox) 110 mg SC Q12 [facility]; Protocol Last Admin: 08/21/18 09:21 Dose: 110 mg Glucagon (Glucagen Diagnostic Kit) 0 mg IM STAT PRN; Protocol PRN Reason: Hypoglycemia Protocol Glucagon (Glucagen Diagnostic Kit) 0 mg IM STAT PRN; Protocol PRN Reason: Hypoglycemia Protocol Amikacin Sulfate 250 mg/ (Sodium Chloride) 101 mls @ 100.609 mls/hr IVPB Q24H [facility]; Protocol Last Admin: 08/20/18 16:12 Dose: 100.609 mls/hr Piperacillin Sod/Tazobactam (Sod 2.25 gm/ Sodium Chloride) 100 mls @ 100 mls/hr IVPB Q8 [facility]; Protocol Last Admin: 08/21/18 09:26 Dose: 100 mls/hr Insulin Human Lispro (Humalog) 0 units SC ACHS [facility]; Protocol Last Admin: 08/21/18 12:54 Dose: 2 unit Losartan Potassium (Cozaar) 50 mg PO DAILY [facility] Last Admin: 08/21/18 09:20 Dose: 50 mg Metoprolol Tartrate (Lopressor) 100 mg PO Q12 [facility] Last Admin: 08/21/18 09:21 Dose: 100 mg Ranolazine (Ranexa) 500 mg PO BID [facility] Last Admin: 08/21/18 09:22 Dose: 500 mg - Labs Labs: 08/20/18 04:20 08/21/18 06:00 PT 13.8 Seconds (9.8-13.1) H 08/16/18 07:50 INR 1.2 08/16/18 07:50 APTT 26.1 Seconds (25.6-37.1) 08/16/18 07:50 - Constitutional Appears: Well, Non-toxic, No Acute Distress - Head Exam Head Exam: ATRAUMATIC, NORMAL INSPECTION, NORMOCEPHALIC - Eye Exam Eye Exam: EOMI, Normal appearance, PERRL Pupil Exam: NORMAL ACCOMODATION, PERRL - ENT Exam ENT Exam: Mucous Membranes Moist, Normal Exam - Neck Exam Neck Exam: Full ROM, Normal Inspection - Respiratory Exam Respiratory Exam: Clear to Ausculation Bilateral, NORMAL BREATHING PATTERN - Cardiovascular Exam Cardiovascular Exam: REGULAR RHYTHM, +S1, +S2 - GI/Abdominal Exam GI & Abdominal Exam: Soft, Normal Bowel Sounds. absent: Tenderness - Extremities Exam Extremities Exam: Full ROM, Normal Capillary Refill, Normal Inspection - Back Exam Back Exam: NORMAL INSPECTION - Neurological Exam Neurological Exam: Alert, Awake, Normal Gait - Psychiatric Exam Psychiatric exam: Normal Affect, Normal Mood - Skin Skin Exam: Dry, Intact, Normal Color, Warm Assessment and Plan (1) Sepsis Status: Resolved (2) Acute cholecystitis Status: Acute (3) Atrial fibrillation with RVR Status: Chronic (4) CHF (congestive heart failure) Status: Chronic - Assessment and Plan (Free Text) Assessment: Assessment: Pt is a 62 yo male with PMH of Aluis e with RVR, HTN, CHF, DM2, hyperlipidemia, presented to ER due to Epigastric/LUQ pain that started today at 4:30. Upon arrival patient had fever, tachycardic and high lactic acid with + acute cho lysestites with possible infiltrate; Patient is admitted to telemetry for sepsis abd acute cholysistitis treatment. S/P Cholecystostomy tube placement day 4. CT:Distended gallbladder with cholelithaisis, limited pericholecystic fluid suspected Possible cholecystitis. + R and L diverticula, Enlargre prostate gland and L1 anterior compression fracture, age indeterminate. RUQ US: + Cholecystitis, cholelithiasis and sludge identified within the lumen of gallbladder Chest X-ray: mild-moderate pulmonary vascular congestion, no definite airspace disease b/l. Cardiomegaly not excluded Repeat Chest X-ray: Positive for Pulmonary vascular congestion, no sign of infiltrate or consolidation. *PICC line Placed today, Patient will be sent to a facility to continue ABx Acute cholecystitis S/P Percutaneous cholecystostomy tube placement day 4 Pain resolved Total bili improving AST/ALT resolved MRCP + cholesystitis. No common bile duct dilation. 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 Xray is negative for consolidation. Stop Azithromycin 500mg Acute kidney Injury Resolved Cr 1.3->1.9->1.7->1.3 BUN 18->25->19->16 GFR>60 Stop D10 NS 1L, 60ml/hr, continue mild hydration with .45% NS Strict I and O HTN Chronic, controlled Norvasc and aldactone Stopped DM2 Chronic, controlled Hold home medication Use sliding scale for insulin use. Hyperlipidemia Chronic, Controlled Continue home medication DVT prophylaxis SCD Therapeutic Lovenex 110 bid dose for A fib with RVR
[2018-08-22] MEDS ORDERED: Simethicone 80 mg Chewtab PO ONE (00:22)
[2018-08-22 07:08] LABS: HEMOGLOBIN 13.5 g/dL (12.0-18.0); MEAN CELL VOLUME 87.9 fl (80.0-94.0); MEAN CORPUSCULAR HEMOGLOBIN 28.6 pg (27.0-31.0); MEAN CORPUSCULAR HGB CONC 32.5 g/dL (33.0-37.0); RBC 4.71 Mil/uL (4.40-5.90); RED CELL DISTRIBUTION WIDTH 16.2 % (11.5-14.5); WHITE BLOOD COUNT 11.2 K/uL (4.8-10.8)
[2018-08-22 07:56] LABS: ALBUMIN 3.8 g/dL (3.5-5.0); ALT/SGPT 75 U/L (21-72); AST/SGOT 53 U/L (17-59); BLOOD UREA NITROGEN 17 mg/dl (9-20); CALCIUM 8.6 mg/dL (8.4-10.2); GFR NON-AFRICAN AMERICAN > 60
--- NOTE | 2018-08-22 08:47 | CP.PCM.PN ---
Subjective - Date & Time of Evaluation Date of Evaluation: 08/22/18 Time of Evaluation: 11:50 - Subjective Subjective: Patient seen and examined at bedside this morning. There are no acute events overnight, NAD. Patient sitting in chair comfortably. Patient denies abdominal pain, nausea, vomiting, diarrhea, dysuria, or fever. Objective - Vital Signs/Intake and Output Vital Signs (last 24 hours): Temp Pulse Resp BP Pulse Ox 98 F 73 20 153/80 H 94 L 08/22/18 08:46 08/22/18 08:46 08/22/18 08:46 08/22/18 08:46 08/22/18 08:46 Intake and Output: 08/22/18 08/22/18 06:59 18:59 Output Total 250 Balance -250 - Medications Medications: Current Medications Acyclovir (Zovirax) 400 mg PO BID [facility]; Protocol Last Admin: 08/21/18 17:16 Dose: 400 mg Atorvastatin Calcium (Lipitor) 20 mg PO HS [facility] Last Admin: 08/21/18 21:56 Dose: 20 mg Dextrose (Dextrose 50% Inj) 0 ml IV STAT PRN; Protocol PRN Reason: Hypoglycemia Protocol Dextrose (Glutose 15) 0 gm PO ONCE PRN; Protocol PRN Reason: Hypoglycemia Protocol Dextrose (Dextrose 50% Inj) 0 ml IV STAT PRN; Protocol PRN Reason: Hypoglycemia Protocol Dextrose (Glutose 15) 0 gm PO ONCE PRN; Protocol PRN Reason: Hypoglycemia Protocol Digoxin (Lanoxin) 0.25 mg PO DAILY [facility] Last Admin: 08/21/18 09:20 Dose: 0.25 mg Docusate Sodium (Colace) 100 mg PO DAILY [facility] Last Admin: 08/21/18 09:19 Dose: 100 mg Glucagon (Glucagen Diagnostic Kit) 0 mg IM STAT PRN; Protocol PRN Reason: Hypoglycemia Protocol Glucagon (Glucagen Diagnostic Kit) 0 mg IM STAT PRN; Protocol PRN Reason: Hypoglycemia Protocol Amikacin Sulfate 250 mg/ (Sodium Chloride) 101 mls @ 100.609 mls/hr IVPB Q24H [facility]; Protocol Last Admin: 08/21/18 19:00 Dose: 100.609 mls/hr Piperacillin Sod/Tazobactam (Sod 2.25 gm/ Sodium Chloride) 100 mls @ 100 mls/hr IVPB Q8 [facility]; Protocol Last Admin: 08/22/18 00:10 Dose: 100 mls/hr Insulin Human Lispro (Humalog) 0 units SC ACHS [facility]; Protocol Last Admin: 08/21/18 21:54 Dose: Not Given Losartan Potassium (Cozaar) 50 mg PO DAILY [facility] Last Admin: 08/21/18 09:20 Dose: 50 mg Metoprolol Tartrate (Lopressor) 100 mg PO Q12 [facility] Last Admin: 08/21/18 21:56 Dose: 100 mg Ranolazine (Ranexa) 500 mg PO BID [facility] Last Admin: 08/21/18 17:15 Dose: 500 mg Rivaroxaban (Xarelto) 20 mg PO QD5 [facility]; Protocol - Labs Labs: 08/22/18 05:30 08/22/18 05:30 PT 13.8 Seconds (9.8-13.1) H 08/16/18 07:50 INR 1.2 08/16/18 07:50 APTT 26.1 Seconds (25.6-37.1) 08/16/18 07:50 - Constitutional Appears: Non-toxic, No Acute Distress - Head Exam Head Exam: ATRAUMATIC, NORMAL INSPECTION, NORMOCEPHALIC - Eye Exam Eye Exam: Normal appearance, PERRL Pupil Exam: NORMAL ACCOMODATION - ENT Exam ENT Exam: Mucous Membranes Moist - Neck Exam Neck Exam: Full ROM. absent: Tenderness - Respiratory Exam Respiratory Exam: Clear to Ausculation Bilateral, NORMAL BREATHING PATTERN. absent: Decreased Breath Sounds, Rales, Rhonchi, Wheezes, Respiratory Distress - Cardiovascular Exam Cardiovascular Exam: REGULAR RHYTHM, +S1, +S2 - GI/Abdominal Exam GI & Abdominal Exam: Soft, Normal Bowel Sounds. absent: Tenderness - Extremities Exam Extremities Exam: Full ROM, Normal Capillary Refill, Normal Inspection Additional comments: RUE PICC line - Neurological Exam Neurological Exam: Alert, Awake, Normal Gait, Oriented x3 - Skin Skin Exam: Dry, Normal Color, Warm Additional comments: dry crusted cold sores on upper and lower lips on right mouth Assessment and Plan - Assessment and Plan (Free Text) Assessment: 62 y/o man w/ pmh of [place] with RVR, HTN, CHF, DM2, hyperlipidemia, presented to ER due to Epigastric/LUQ pain that started on admission. Patient is admitted for sepsis and cholecystitis treatment. S/P Cholecystostomy tube placement day 5. CT:Distended gallbladder with cholelithaisis, limited pericholecystic fluid suspected Possible cholecystitis. + R and L diverticula, Enlargre prostate gland and L1 anterior compression fracture, age indeterminate. RUQ US: + Cholecystitis, cholelithiasis and sludge identified within the lumen of gallbladder Chest X-ray: mild-moderate pulmonary vascular congestion, no definite airspace disease b/l. Cardiomegaly not excluded Repeat Chest X-ray: Positive for Pulmonary vascular congestion, no sign of infiltrate or consolidation. *PICC line placed yesterday, pending placement to continue IV ABx Plan: Acute cholecystitis - S/P Percutaneous cholecystostomy tube placement day 5 - Pain resolved - Total bili improving - AST/ALT resolved - MRCP + cholesystitis. No common bile duct dilation. 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 - Xray is negative for consolidation. Acute kidney Injury - resolved - Resolved - Cr 1.3->1.9->1.7->1.3 - BUN 18->25->19->16 - GFR>60 HTN - Chronic, controlled - Norvasc and aldactone DC'ed DM2 - Chronic, controlled - Hold home medication - Use sliding scale for insulin use. Hyperlipidemia - Chronic, Controlled - Continue home medication DVT prophylaxis - SCD - Xarelto 20 mg PO daily
[2018-08-22] MEDS: Insulin Lispro (humaLOG) 100 Units/ml Inj SC SCH ×4 (09:38→21:05)
[2018-08-22] MEDS: Digoxin 250 mcg (0.25 mg) Tab PO SCH (09:39)
[2018-08-22] MEDS: Ranolazine 500 mg Extended Release Tablets PO SCH ×2 (12:43→16:43)
[2018-08-23 07:00] LABS: HEMOGLOBIN 13.2 g/dL (12.0-18.0); MEAN CELL VOLUME 85.8 fl (80.0-94.0); MEAN CORPUSCULAR HEMOGLOBIN 28.8 pg (27.0-31.0); MEAN CORPUSCULAR HGB CONC 33.6 g/dL (33.0-37.0); RBC 4.6 Mil/uL (4.40-5.90); RED CELL DISTRIBUTION WIDTH 16.4 % (11.5-14.5); WHITE BLOOD COUNT 10.9 K/uL (4.8-10.8)
[2018-08-23 07:03] LABS: ALB/GLOB RATIO 0.9 (1.0-2.1); ALBUMIN 3.7 g/dL (3.5-5.0); ALT/SGPT 67 U/L (21-72); AST/SGOT 46 U/L (17-59); BLOOD UREA NITROGEN 18 mg/dl (9-20); CALCIUM 8.7 mg/dL (8.4-10.2); GFR NON-AFRICAN AMERICAN > 60
[2018-08-23] MEDS: Insulin Lispro (humaLOG) 100 Units/ml Inj SC SCH ×4 (08:42→22:43)
[2018-08-23] MEDS: Digoxin 250 mcg (0.25 mg) Tab PO SCH (08:42)
[2018-08-23] MEDS: Ranolazine 500 mg Extended Release Tablets PO SCH ×2 (08:43→16:02)
--- NOTE | 2018-08-23 11:13 | CP.PCM.PN ---
Subjective - Date & Time of Evaluation Date of Evaluation: 08/23/18 Time of Evaluation: 07:45 - Subjective Subjective: Pt is seen and examined at bedside. Pt have no complain today. He denies fever chills, chest pain, sob, abd pain, diarrhea, dysuria, or polyuria. Pt have no complain today.Drainage today 650ml Objective - Vital Signs/Intake and Output Vital Signs (last 24 hours): Temp Pulse Resp BP Pulse Ox 98.8 F 79 20 158/90 H 96 08/23/18 08:37 08/23/18 08:43 08/23/18 08:37 08/23/18 08:43 08/23/18 08:37 Intake and Output: 08/23/18 08/23/18 06:59 18:59 Output Total 240 Balance -240 - Medications Medications: Current Medications Acyclovir (Zovirax) 400 mg PO BID [facility]; Protocol Last Admin: 08/23/18 08:44 Dose: 400 mg Amlodipine Besylate (Norvasc) 10 mg PO DAILY [facility] Atorvastatin Calcium (Lipitor) 20 mg PO HS [facility] Last Admin: 08/22/18 21:00 Dose: 20 mg Dextrose (Dextrose 50% Inj) 0 ml IV STAT PRN; Protocol PRN Reason: Hypoglycemia Protocol Dextrose (Glutose 15) 0 gm PO ONCE PRN; Protocol PRN Reason: Hypoglycemia Protocol Dextrose (Dextrose 50% Inj) 0 ml IV STAT PRN; Protocol PRN Reason: Hypoglycemia Protocol Dextrose (Glutose 15) 0 gm PO ONCE PRN; Protocol PRN Reason: Hypoglycemia Protocol Digoxin (Lanoxin) 0.25 mg PO DAILY [facility] Last Admin: 08/23/18 08:42 Dose: 0.25 mg Docusate Sodium (Colace) 100 mg PO DAILY [facility] Last Admin: 08/23/18 08:41 Dose: 100 mg Glucagon (Glucagen Diagnostic Kit) 0 mg IM STAT PRN; Protocol PRN Reason: Hypoglycemia Protocol Glucagon (Glucagen Diagnostic Kit) 0 mg IM STAT PRN; Protocol PRN Reason: Hypoglycemia Protocol Amikacin Sulfate 250 mg/ (Sodium Chloride) 101 mls @ 100.609 mls/hr IVPB Q24H [facility]; Protocol Last Admin: 08/22/18 16:42 Dose: 100.609 mls/hr Piperacillin Sod/Tazobactam (Sod 2.25 gm/ Sodium Chloride) 100 mls @ 100 mls/hr IVPB Q8 [facility]; Protocol Last Admin: 08/23/18 00:14 Dose: 100 mls/hr Insulin Human Lispro (Humalog) 0 units SC ACHS [facility]; Protocol Last Admin: 08/23/18 08:42 Dose: Not Given Losartan Potassium (Cozaar) 100 mg PO DAILY [facility] Last Admin: 08/23/18 08:41 Dose: 100 mg Metoprolol Tartrate (Lopressor) 100 mg PO Q12 [facility] Last Admin: 08/23/18 08:43 Dose: 100 mg Ranolazine (Ranexa) 500 mg PO BID [facility] Last Admin: 08/23/18 08:43 Dose: 500 mg Rivaroxaban (Xarelto) 20 mg PO QD5 [facility]; Protocol Last Admin: 08/22/18 16:43 Dose: 20 mg - Labs Labs: 08/23/18 05:30 08/23/18 05:30 PT 13.8 Seconds (9.8-13.1) H 08/16/18 07:50 INR 1.2 08/16/18 07:50 APTT 26.1 Seconds (25.6-37.1) 08/16/18 07:50 - Constitutional Appears: Well, Non-toxic, No Acute Distress - Head Exam Head Exam: ATRAUMATIC, NORMAL INSPECTION, NORMOCEPHALIC Additional comments: herpatic lesion noted on left lips - Eye Exam Eye Exam: EOMI, Normal appearance, PERRL Pupil Exam: NORMAL ACCOMODATION, PERRL - ENT Exam ENT Exam: Mucous Membranes Moist, Normal Exam - Neck Exam Neck Exam: Full ROM, Normal Inspection - Respiratory Exam Respiratory Exam: Clear to Ausculation Bilateral, NORMAL BREATHING PATTERN - Cardiovascular Exam Cardiovascular Exam: REGULAR RHYTHM, +S1, +S2 - GI/Abdominal Exam GI & Abdominal Exam: Soft, Normal Bowel Sounds - Extremities Exam Extremities Exam: Full ROM, Normal Capillary Refill, Normal Inspection - Back Exam Back Exam: NORMAL INSPECTION - Neurological Exam Neurological Exam: Alert, Awake, Oriented x3 - Psychiatric Exam Psychiatric exam: Normal Affect, Normal Mood - Skin Skin Exam: Dry, Intact, Normal Color, Warm Assessment and Plan (1) Sepsis Status: Resolved (2) Acute cholecystitis Status: Acute (3) Atrial fibrillation with RVR Status: Chronic (4) CHF (congestive heart failure) Status: Chronic - Assessment and Plan (Free Text) Assessment: Assessment: 62 y/o man w/ pmh of [place] with RVR, HTN, CHF, DM2, hyperlipidemia, presented to ER due to Epigastric/LUQ pain that started on admission. Patient is admitted for sepsis and cholecystitis treatment. S/P Cholecystostomy tube placement day 6. CT:Distended gallbladder with cholelithaisis, limited pericholecystic fluid suspected Possible cholecystitis. + R and L diverticula, Enlargre prostate gland and L1 anterior compression fracture, age indeterminate. RUQ US: + Cholecystitis, cholelithiasis and sludge identified within the lumen of gallbladder Chest X-ray: mild-moderate pulmonary vascular congestion, no definite airspace disease b/l. Cardiomegaly not excluded Repeat Chest X-ray: Positive for Pulmonary vascular congestion, no sign of infiltrate or consolidation. *PICC line placed yesterday, pending placement to continue IV ABx Plan: Acute cholecystitis - S/P Percutaneous cholecystostomy tube placement day 6 - MRCP and HIDA + cholesystitis. No common bile duct dilation. - Ct scan and RUQ US: + for cholecystitis - Regular diet - PICC line Placed, Possible discharge tomorrow with and self infusion at home. 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 Hyperlipidemia - Chronic, Controlled - Continue home medication DVT prophylaxis - SCD - Xarelto 20 mg PO daily
--- NOTE | 2018-08-23 19:31 | CP.PCM.PN ---
Subjective - Date & Time of Evaluation Date of Evaluation: 08/23/18 Time of Evaluation: 09:00 - Subjective Subjective: Patient w/o abdominal pain. Tolerating diet. Objective - Vital Signs/Intake and Output Vital Signs (last 24 hours): Temp Pulse Resp BP Pulse Ox 97.7 F 63 18 141/85 96 08/23/18 16:20 08/23/18 16:20 08/23/18 16:20 08/23/18 16:20 08/23/18 16:20 Intake and Output: 08/23/18 08/24/18 18:59 06:59 Output Total 210 Balance -210 - Medications Medications: Current Medications Acyclovir (Zovirax) 400 mg PO BID [facility]; Protocol Last Admin: 08/23/18 16:02 Dose: 400 mg Amlodipine Besylate (Norvasc) 10 mg PO DAILY [facility] Last Admin: 08/23/18 13:12 Dose: 10 mg Atorvastatin Calcium (Lipitor) 20 mg PO HS [facility] Last Admin: 08/22/18 21:00 Dose: 20 mg Dextrose (Dextrose 50% Inj) 0 ml IV STAT PRN; Protocol PRN Reason: Hypoglycemia Protocol Dextrose (Glutose 15) 0 gm PO ONCE PRN; Protocol PRN Reason: Hypoglycemia Protocol Dextrose (Dextrose 50% Inj) 0 ml IV STAT PRN; Protocol PRN Reason: Hypoglycemia Protocol Dextrose (Glutose 15) 0 gm PO ONCE PRN; Protocol PRN Reason: Hypoglycemia Protocol Digoxin (Lanoxin) 0.25 mg PO DAILY [facility] Last Admin: 08/23/18 08:42 Dose: 0.25 mg Docusate Sodium (Colace) 100 mg PO DAILY [facility] Last Admin: 08/23/18 08:41 Dose: 100 mg Glucagon (Glucagen Diagnostic Kit) 0 mg IM STAT PRN; Protocol PRN Reason: Hypoglycemia Protocol Glucagon (Glucagen Diagnostic Kit) 0 mg IM STAT PRN; Protocol PRN Reason: Hypoglycemia Protocol Amikacin Sulfate 250 mg/ (Sodium Chloride) 101 mls @ 100.609 mls/hr IVPB Q24H [facility]; Protocol Last Admin: 08/23/18 15:56 Dose: 100.609 mls/hr Piperacillin Sod/Tazobactam (Sod 2.25 gm/ Sodium Chloride) 100 mls @ 100 mls/hr IVPB Q8 [facility]; Protocol Last Admin: 08/23/18 16:00 Dose: 100 mls/hr Insulin Human Lispro (Humalog) 0 units SC ACHS [facility]; Protocol Last Admin: 08/23/18 16:05 Dose: Not Given Losartan Potassium (Cozaar) 100 mg PO DAILY [facility] Last Admin: 08/23/18 08:41 Dose: 100 mg Metoprolol Tartrate (Lopressor) 100 mg PO Q12 [facility] Last Admin: 08/23/18 08:43 Dose: 100 mg Ranolazine (Ranexa) 500 mg PO BID [facility] Last Admin: 08/23/18 16:02 Dose: 500 mg Rivaroxaban (Xarelto) 20 mg PO QD5 [facility]; Protocol Last Admin: 08/23/18 16:02 Dose: 20 mg - Labs Labs: 08/23/18 05:30 08/23/18 05:30 PT 13.8 Seconds (9.8-13.1) H 08/16/18 07:50 INR 1.2 08/16/18 07:50 APTT 26.1 Seconds (25.6-37.1) 08/16/18 07:50 - Head Exam Head Exam: ATRAUMATIC - Eye Exam Eye Exam: Normal appearance - ENT Exam ENT Exam: Normal Exam - Neck Exam Neck Exam: Full ROM - Respiratory Exam Respiratory Exam: Clear to Ausculation Bilateral - Cardiovascular Exam Cardiovascular Exam: REGULAR RHYTHM - GI/Abdominal Exam GI & Abdominal Exam: Soft, Normal Bowel Sounds. absent: Tenderness Assessment and Plan (1) Acute cholecystitis Assessment & Plan: Patient feeling well. Toleratin diet and Bili coming down. Lap/hermes after cardiology treatment Status: Acute (2) Sepsis Status: Resolved
[2018-08-24 06:29] LABS: HEMOGLOBIN 13.2 g/dL (12.0-18.0); MEAN CELL VOLUME 86.4 fl (80.0-94.0); MEAN CORPUSCULAR HEMOGLOBIN 28.8 pg (27.0-31.0); MEAN CORPUSCULAR HGB CONC 33.3 g/dL (33.0-37.0); RBC 4.58 Mil/uL (4.40-5.90); RED CELL DISTRIBUTION WIDTH 16.4 % (11.5-14.5); WHITE BLOOD COUNT 11.2 K/uL (4.8-10.8)
[2018-08-24 06:43] LABS: ALB/GLOB RATIO 0.9 (1.0-2.1); ALBUMIN 3.7 g/dL (3.5-5.0); ALT/SGPT 52 U/L (21-72); AST/SGOT 44 U/L (17-59); BLOOD UREA NITROGEN 19 mg/dl (9-20); CALCIUM 8.8 mg/dL (8.4-10.2); GFR NON-AFRICAN AMERICAN 56
[2018-08-24] MEDS: Insulin Lispro (humaLOG) 100 Units/ml Inj SC SCH ×3 (07:04→16:38)
[2018-08-24] MEDS: Digoxin 250 mcg (0.25 mg) Tab PO SCH (08:45)
[2018-08-24] MEDS: Ranolazine 500 mg Extended Release Tablets PO SCH ×2 (08:47→16:38)
--- NOTE | 2018-08-24 11:13 | CP.PCM.PN ---
<Aki Roy - Last Filed: 08/24/18 11:13> Subjective - Date & Time of Evaluation Date of Evaluation: 08/24/18 Time of Evaluation: 08:00 - Subjective Subjective: PT seen and examined, no acute event overnight. Pt have no complain Objective - Vital Signs/Intake and Output Vital Signs (last 24 hours): Temp Pulse Resp BP Pulse Ox 97.8 F 65 20 151/82 H 95 08/24/18 08:16 08/24/18 08:46 08/24/18 08:16 08/24/18 08:46 08/24/18 08:16 Intake and Output: 08/24/18 08/24/18 06:59 18:59 Output Total 175 Balance -175 - Medications Medications: Current Medications Acyclovir (Zovirax) 400 mg PO BID [facility]; Protocol Last Admin: 08/24/18 08:47 Dose: 400 mg Amlodipine Besylate (Norvasc) 10 mg PO DAILY [facility] Last Admin: 08/24/18 08:46 Dose: 10 mg Atorvastatin Calcium (Lipitor) 20 mg PO HS [facility] Last Admin: 08/23/18 22:42 Dose: 20 mg Dextrose (Dextrose 50% Inj) 0 ml IV STAT PRN; Protocol PRN Reason: Hypoglycemia Protocol Dextrose (Glutose 15) 0 gm PO ONCE PRN; Protocol PRN Reason: Hypoglycemia Protocol Dextrose (Dextrose 50% Inj) 0 ml IV STAT PRN; Protocol PRN Reason: Hypoglycemia Protocol Dextrose (Glutose 15) 0 gm PO ONCE PRN; Protocol PRN Reason: Hypoglycemia Protocol Digoxin (Lanoxin) 0.25 mg PO DAILY [facility] Last Admin: 08/24/18 08:45 Dose: 0.25 mg Docusate Sodium (Colace) 100 mg PO DAILY [facility] Last Admin: 08/24/18 08:46 Dose: 100 mg Glucagon (Glucagen Diagnostic Kit) 0 mg IM STAT PRN; Protocol PRN Reason: Hypoglycemia Protocol Glucagon (Glucagen Diagnostic Kit) 0 mg IM STAT PRN; Protocol PRN Reason: Hypoglycemia Protocol Amikacin Sulfate 250 mg/ (Sodium Chloride) 101 mls @ 100.609 mls/hr IVPB Q24H [facility]; Protocol Last Admin: 08/23/18 15:56 Dose: 100.609 mls/hr Piperacillin Sod/Tazobactam (Sod 2.25 gm/ Sodium Chloride) 100 mls @ 100 mls/hr IVPB Q8 [facility]; Protocol Last Admin: 08/24/18 08:47 Dose: 100 mls/hr Insulin Human Lispro (Humalog) 0 units SC ACHS [facility]; Protocol Last Admin: 08/24/18 07:04 Dose: Not Given Losartan Potassium (Cozaar) 100 mg PO DAILY [facility] Last Admin: 08/24/18 08:45 Dose: 100 mg Metoprolol Tartrate (Lopressor) 100 mg PO Q12 [facility] Last Admin: 08/24/18 08:46 Dose: 100 mg Ranolazine (Ranexa) 500 mg PO BID [facility] Last Admin: 08/24/18 08:47 Dose: 500 mg Rivaroxaban (Xarelto) 20 mg PO QD5 [facility]; Protocol Last Admin: 08/23/18 16:02 Dose: 20 mg - Labs Labs: 08/24/18 05:09 08/24/18 05:09 PT 13.8 Seconds (9.8-13.1) H 08/16/18 07:50 INR 1.2 08/16/18 07:50 APTT 26.1 Seconds (25.6-37.1) 08/16/18 07:50 - Constitutional Appears: Well, Non-toxic, No Acute Distress - Head Exam Head Exam: ATRAUMATIC, NORMAL INSPECTION, NORMOCEPHALIC - Eye Exam Eye Exam: EOMI, Normal appearance, PERRL Pupil Exam: NORMAL ACCOMODATION, PERRL - ENT Exam ENT Exam: Mucous Membranes Moist, Normal Exam - Neck Exam Neck Exam: Full ROM, Normal Inspection - Respiratory Exam Respiratory Exam: Clear to Ausculation Bilateral, NORMAL BREATHING PATTERN - Cardiovascular Exam Cardiovascular Exam: REGULAR RHYTHM, +S1, +S2 - GI/Abdominal Exam GI & Abdominal Exam: Soft, Normal Bowel Sounds. absent: Tenderness Additional comments: Tube draining, patent - Extremities Exam Extremities Exam: Full ROM, Normal Capillary Refill, Normal Inspection - Back Exam Back Exam: NORMAL INSPECTION - Neurological Exam Neurological Exam: Alert, Awake, Oriented x3 - Psychiatric Exam Psychiatric exam: Normal Affect, Normal Mood - Skin Skin Exam: Dry, Intact, Normal Color, Warm Assessment and Plan (1) Sepsis Status: Resolved (2) Acute cholecystitis Status: Acute (3) Atrial fibrillation with RVR Status: Chronic (4) CHF (congestive heart failure) Status: Chronic - Assessment and Plan (Free Text) Assessment: 62 y/o man w/ pmh of [place] with RVR, HTN, CHF, DM2, hyperlipidemia, presented to ER due to Epigastric/LUQ pain that started on admission. Patient is admitted for sepsis and cholecystitis treatment. S/P Cholecystostomy tube placement day 7. CT:Distended gallbladder with cholelithaisis, limited pericholecystic fluid suspected Possible cholecystitis. + R and L diverticula, Enlargre prostate gland and L1 anterior compression fracture, age indeterminate. RUQ US: + Cholecystitis, cholelithiasis and sludge identified within the lumen of gallbladder Chest X-ray: mild-moderate pulmonary vascular congestion, no definite airspace disease b/l. Cardiomegaly not excluded Repeat Chest X-ray: Positive for Pulmonary vascular congestion, no sign of infiltrate or consolidation. *PICC line placed Plan: Acute cholecystitis - S/P Percutaneous cholecystostomy tube placement day 7 - MRCP and HIDA + cholesystitis. No common bile duct dilation. - Ct scan and RUQ US: + for cholecystitis - Regular diet - PICC line Placed, Possible discharge tomorrow with and self infusion at home. 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 Hyperlipidemia - Chronic, Controlled - Continue home medication Sepsis - resolved - Resolved Possible pneumonia + infiltrate - resolved - Resolved Acute kidney Injury - resolved - Resolved DVT prophylaxis - SCD - Xarelto 20 mg PO daily <Aniyah Carcamo - Last Filed: 08/24/18 17:19> Objective - Vital Signs/Intake and Output Vital Signs (last 24 hours): Temp Pulse Resp BP Pulse Ox 98.2 F 71 18 144/67 98 08/24/18 16:06 08/24/18 16:06 08/24/18 16:06 08/24/18 16:06 08/24/18 16:06 Intake and Output: 08/24/18 08/24/18 06:59 18:59 Output Total 175 Balance -175 - Medications Medications: Current Medications Acyclovir (Zovirax) 400 mg PO BID [facility]; Protocol Last Admin: 08/24/18 16:38 Dose: 400 mg Acyclovir (Zovirax 5% Oint) 1 applic EXT Q3 [facility] Last Admin: 08/24/18 16:37 Dose: 1 applic Amlodipine Besylate (Norvasc) 10 mg PO DAILY [facility] Last Admin: 08/24/18 08:46 Dose: 10 mg Atorvastatin Calcium (Lipitor) 20 mg PO HS [facility] Last Admin: 08/23/18 22:42 Dose: 20 mg Dextrose (Dextrose 50% Inj) 0 ml IV STAT PRN; Protocol PRN Reason: Hypoglycemia Protocol Dextrose (Glutose 15) 0 gm PO ONCE PRN; Protocol PRN Reason: Hypoglycemia Protocol Dextrose (Dextrose 50% Inj) 0 ml IV STAT PRN; Protocol PRN Reason: Hypoglycemia Protocol Dextrose (Glutose 15) 0 gm PO ONCE PRN; Protocol PRN Reason: Hypoglycemia Protocol Digoxin (Lanoxin) 0.25 mg PO DAILY [facility] Last Admin: 08/24/18 08:45 Dose: 0.25 mg Docusate Sodium (Colace) 100 mg PO DAILY [facility] Last Admin: 08/24/18 08:46 Dose: 100 mg Glucagon (Glucagen Diagnostic Kit) 0 mg IM STAT PRN; Protocol PRN Reason: Hypoglycemia Protocol Glucagon (Glucagen Diagnostic Kit) 0 mg IM STAT PRN; Protocol PRN Reason: Hypoglycemia Protocol Amikacin Sulfate 250 mg/ (Sodium Chloride) 101 mls @ 100.609 mls/hr IVPB Q24H [facility]; Protocol Last Admin: 08/24/18 16:36 Dose: 100.609 mls/hr Piperacillin Sod/Tazobactam (Sod 2.25 gm/ Sodium Chloride) 100 mls @ 100 mls/hr IVPB Q8 [facility]; Protocol Last Admin: 08/24/18 16:37 Dose: 100 mls/hr Insulin Human Lispro (Humalog) 0 units SC ACHS [facility]; Protocol Last Admin: 08/24/18 16:38 Dose: Not Given Losartan Potassium (Cozaar) 100 mg PO DAILY [facility] Last Admin: 08/24/18 08:45 Dose: 100 mg Metoprolol Tartrate (Lopressor) 100 mg PO Q12 [facility] Last Admin: 08/24/18 08:46 Dose: 100 mg Ranolazine (Ranexa) 500 mg PO BID [facility] Last Admin: 08/24/18 16:38 Dose: 500 mg - Labs Labs: 08/24/18 05:09 08/24/18 05:09 PT 13.8 Seconds (9.8-13.1) H 08/16/18 07:50 INR 1.2 08/16/18 07:50 APTT 26.1 Seconds (25.6-37.1) 08/16/18 07:50 Attending/Attestation - Attestation I have personally seen and examined this patient.: Yes I have fully participated in the care of the patient.: Yes I have reviewed all pertinent clinical information, including history, physical exam and plan: Yes Notes (Text): Acute Cholecystitis w/p Cholecystostomy Tube Placement Plan was for pt to be d/c to [facility] for iV antibiotics, however pt's Insurance requires a copayment w/c pt is unable to afford Unable to do Home iV abx infusion. Lives with however works and pt states he is scared and cannot give IV Infusion himself We will keep pt in the hospital to continue IV antibiotics x 5 more days. CAD : - Plan for Cardiac cath by Dr Portillo in am at [facility] to optimize pt's cardiac status prior to Cholecystectomy
[2018-08-24] MEDS: Acyclovir 5% OINT 15 APPLIC/15 GM EXT SCH ×4 (13:01→22:44)
--- NOTE | 2018-08-24 15:35 | CP.PCM.PN ---
Subjective - Date & Time of Evaluation Date of Evaluation: 08/24/18 Time of Evaluation: 15:34 - Subjective Subjective: s/p cholecystotomy tube feeling fine Objective - Vital Signs/Intake and Output Vital Signs (last 24 hours): Temp Pulse Resp BP Pulse Ox 97.8 F 65 20 151/82 H 95 08/24/18 08:16 08/24/18 08:46 08/24/18 08:16 08/24/18 08:46 08/24/18 08:16 Intake and Output: 08/24/18 08/24/18 06:59 18:59 Output Total 175 Balance -175 - Medications Medications: Current Medications Acyclovir (Zovirax) 400 mg PO BID [facility]; Protocol Last Admin: 08/24/18 08:47 Dose: 400 mg Acyclovir (Zovirax 5% Oint) 1 applic EXT Q3 [facility] Last Admin: 08/24/18 13:01 Dose: 1 applic Amlodipine Besylate (Norvasc) 10 mg PO DAILY [facility] Last Admin: 08/24/18 08:46 Dose: 10 mg Atorvastatin Calcium (Lipitor) 20 mg PO HS [facility] Last Admin: 08/23/18 22:42 Dose: 20 mg Dextrose (Dextrose 50% Inj) 0 ml IV STAT PRN; Protocol PRN Reason: Hypoglycemia Protocol Dextrose (Glutose 15) 0 gm PO ONCE PRN; Protocol PRN Reason: Hypoglycemia Protocol Dextrose (Dextrose 50% Inj) 0 ml IV STAT PRN; Protocol PRN Reason: Hypoglycemia Protocol Dextrose (Glutose 15) 0 gm PO ONCE PRN; Protocol PRN Reason: Hypoglycemia Protocol Digoxin (Lanoxin) 0.25 mg PO DAILY [facility] Last Admin: 08/24/18 08:45 Dose: 0.25 mg Docusate Sodium (Colace) 100 mg PO DAILY [facility] Last Admin: 08/24/18 08:46 Dose: 100 mg Glucagon (Glucagen Diagnostic Kit) 0 mg IM STAT PRN; Protocol PRN Reason: Hypoglycemia Protocol Glucagon (Glucagen Diagnostic Kit) 0 mg IM STAT PRN; Protocol PRN Reason: Hypoglycemia Protocol Amikacin Sulfate 250 mg/ (Sodium Chloride) 101 mls @ 100.609 mls/hr IVPB Q24H [facility]; Protocol Last Admin: 08/23/18 15:56 Dose: 100.609 mls/hr Piperacillin Sod/Tazobactam (Sod 2.25 gm/ Sodium Chloride) 100 mls @ 100 mls/hr IVPB Q8 [facility]; Protocol Last Admin: 08/24/18 08:47 Dose: 100 mls/hr Insulin Human Lispro (Humalog) 0 units SC ACHS [facility]; Protocol Last Admin: 08/24/18 12:59 Dose: Not Given Losartan Potassium (Cozaar) 100 mg PO DAILY [facility] Last Admin: 08/24/18 08:45 Dose: 100 mg Metoprolol Tartrate (Lopressor) 100 mg PO Q12 [facility] Last Admin: 08/24/18 08:46 Dose: 100 mg Ranolazine (Ranexa) 500 mg PO BID [facility] Last Admin: 08/24/18 08:47 Dose: 500 mg - Labs Labs: 08/24/18 05:09 08/24/18 05:09 PT 13.8 Seconds (9.8-13.1) H 08/16/18 07:50 INR 1.2 08/16/18 07:50 APTT 26.1 Seconds (25.6-37.1) 08/16/18 07:50 - Constitutional Appears: Well - Head Exam Head Exam: ATRAUMATIC, NORMAL INSPECTION, NORMOCEPHALIC - Eye Exam Eye Exam: EOMI, Normal appearance, PERRL Pupil Exam: NORMAL ACCOMODATION, PERRL - ENT Exam ENT Exam: Mucous Membranes Moist, Normal Exam - Neck Exam Neck Exam: Full ROM, Normal Inspection. absent: Lymphadenopathy - Respiratory Exam Respiratory Exam: Clear to Ausculation Bilateral, NORMAL BREATHING PATTERN - Cardiovascular Exam Cardiovascular Exam: REGULAR RHYTHM, +S1, +S2. absent: Murmur - GI/Abdominal Exam GI & Abdominal Exam: Soft, Normal Bowel Sounds. absent: Tenderness - Extremities Exam Extremities Exam: Full ROM, Normal Capillary Refill, Normal Inspection. absent: Joint Swelling, Pedal Edema - Back Exam Back Exam: NORMAL INSPECTION - Neurological Exam Neurological Exam: Alert, Awake, CN II-XII Intact, Normal Gait, Oriented x3 - Psychiatric Exam Psychiatric exam: Normal Affect, Normal Mood - Skin Skin Exam: Dry, Intact, Normal Color, Warm Assessment and Plan (1) Acute cholecystitis Assessment & Plan: stable improving abx Status: Acute (2) Atrial fibrillation with RVR Status: Chronic (3) CHF (congestive heart failure) Assessment & Plan: plan for cath in am npo p mn Status: Chronic (4) Sepsis Status: Resolved (5) Septic shock Status: Acute
[2018-08-24 17:39] LABS: INR 1.2; PROTHROMBIN TIME 13.8 Seconds (9.8-13.1)
[2018-08-24 17:42] LABS: PARTIAL THROMBOPLASTIN TIME 37.1 Seconds (25.6-37.1)
--- NOTE | 2018-08-24 21:43 | CP.PCM.PN ---
Subjective - Date & Time of Evaluation Date of Evaluation: 08/24/18 Time of Evaluation: 10:00 - Subjective Subjective: Patient w/o complaint Objective - Vital Signs/Intake and Output Vital Signs (last 24 hours): Temp Pulse Resp BP Pulse Ox 98.2 F 71 18 144/67 98 08/24/18 16:06 08/24/18 16:06 08/24/18 16:06 08/24/18 16:06 08/24/18 16:06 Intake and Output: 08/24/18 08/25/18 18:59 06:59 Output Total 365 Balance -365 - Medications Medications: Current Medications Acyclovir (Zovirax) 400 mg PO BID [facility]; Protocol Last Admin: 08/24/18 16:38 Dose: 400 mg Acyclovir (Zovirax 5% Oint) 1 applic EXT Q3 [facility] Last Admin: 08/24/18 16:37 Dose: 1 applic Amlodipine Besylate (Norvasc) 10 mg PO DAILY [facility] Last Admin: 08/24/18 08:46 Dose: 10 mg Atorvastatin Calcium (Lipitor) 20 mg PO HS [facility] Last Admin: 08/23/18 22:42 Dose: 20 mg Dextrose (Dextrose 50% Inj) 0 ml IV STAT PRN; Protocol PRN Reason: Hypoglycemia Protocol Dextrose (Glutose 15) 0 gm PO ONCE PRN; Protocol PRN Reason: Hypoglycemia Protocol Dextrose (Dextrose 50% Inj) 0 ml IV STAT PRN; Protocol PRN Reason: Hypoglycemia Protocol Dextrose (Glutose 15) 0 gm PO ONCE PRN; Protocol PRN Reason: Hypoglycemia Protocol Digoxin (Lanoxin) 0.25 mg PO DAILY [facility] Last Admin: 08/24/18 08:45 Dose: 0.25 mg Docusate Sodium (Colace) 100 mg PO DAILY [facility] Last Admin: 08/24/18 08:46 Dose: 100 mg Glucagon (Glucagen Diagnostic Kit) 0 mg IM STAT PRN; Protocol PRN Reason: Hypoglycemia Protocol Glucagon (Glucagen Diagnostic Kit) 0 mg IM STAT PRN; Protocol PRN Reason: Hypoglycemia Protocol Amikacin Sulfate 250 mg/ (Sodium Chloride) 101 mls @ 100.609 mls/hr IVPB Q24H [facility]; Protocol Last Admin: 08/24/18 16:36 Dose: 100.609 mls/hr Piperacillin Sod/Tazobactam (Sod 2.25 gm/ Sodium Chloride) 100 mls @ 100 mls/hr IVPB Q8 [facility]; Protocol Last Admin: 08/24/18 16:37 Dose: 100 mls/hr Insulin Human Lispro (Humalog) 0 units SC ACHS [facility]; Protocol Last Admin: 08/24/18 16:38 Dose: Not Given Losartan Potassium (Cozaar) 100 mg PO DAILY [facility] Last Admin: 08/24/18 08:45 Dose: 100 mg Metoprolol Tartrate (Lopressor) 100 mg PO Q12 [facility] Last Admin: 08/24/18 08:46 Dose: 100 mg Ranolazine (Ranexa) 500 mg PO BID [facility] Last Admin: 08/24/18 16:38 Dose: 500 mg - Labs Labs: 08/24/18 05:09 08/24/18 05:09 PT 13.8 Seconds (9.8-13.1) H 08/24/18 16:46 INR 1.2 08/24/18 16:46 APTT 37.1 Seconds (25.6-37.1) 08/24/18 16:46 - Head Exam Head Exam: ATRAUMATIC - Eye Exam Eye Exam: Normal appearance - ENT Exam ENT Exam: Normal Exam - Respiratory Exam Respiratory Exam: Clear to Ausculation Bilateral - Cardiovascular Exam Cardiovascular Exam: REGULAR RHYTHM - GI/Abdominal Exam GI & Abdominal Exam: Soft. absent: Tenderness Assessment and Plan (1) Acute cholecystitis Assessment & Plan: cholecystostomy tube in place. Clinically doing well. Asymptomatic. Status: Acute (2) Sepsis Status: Resolved
[2018-08-25] MEDS: Acyclovir 5% OINT 15 APPLIC/15 GM EXT SCH ×6 (00:16→23:16)
[2018-08-25] MEDS: Insulin Lispro (humaLOG) 100 Units/ml Inj SC SCH ×5 (00:17→23:10)
[2018-08-25] MEDS: Digoxin 250 mcg (0.25 mg) Tab PO SCH (09:00)
[2018-08-25] MEDS: Ranolazine 500 mg Extended Release Tablets PO SCH ×2 (09:00→16:23)
--- NOTE | 2018-08-25 09:47 | CP.PCM.PN ---
Subjective - Date & Time of Evaluation Date of Evaluation: 08/25/18 Time of Evaluation: 06:50 - Subjective Subjective: PT seen and examined at bedside. No acute event overnight. PT will be going for cath today. Pt was placed NPO for cath. Pt denies fever, chill, chest pain, abd pain, diarrhea constipation or any other symptoms Objective - Vital Signs/Intake and Output Vital Signs (last 24 hours): Temp Pulse Resp BP Pulse Ox 97.9 F 68 20 149/87 96 08/25/18 08:00 08/25/18 08:00 08/25/18 08:00 08/25/18 08:00 08/25/18 08:00 Intake and Output: 08/25/18 08/25/18 06:59 18:59 Output Total 80 Balance -80 - Medications Medications: Current Medications Acyclovir (Zovirax) 400 mg PO BID [facility]; Protocol Last Admin: 08/24/18 16:38 Dose: 400 mg Acyclovir (Zovirax 5% Oint) 1 applic EXT Q3 [facility] Last Admin: 08/25/18 00:16 Dose: 1 applic Amlodipine Besylate (Norvasc) 10 mg PO DAILY [facility] Last Admin: 08/24/18 08:46 Dose: 10 mg Atorvastatin Calcium (Lipitor) 20 mg PO HS [facility] Last Admin: 08/24/18 22:44 Dose: 20 mg Dextrose (Dextrose 50% Inj) 0 ml IV STAT PRN; Protocol PRN Reason: Hypoglycemia Protocol Dextrose (Glutose 15) 0 gm PO ONCE PRN; Protocol PRN Reason: Hypoglycemia Protocol Dextrose (Dextrose 50% Inj) 0 ml IV STAT PRN; Protocol PRN Reason: Hypoglycemia Protocol Dextrose (Glutose 15) 0 gm PO ONCE PRN; Protocol PRN Reason: Hypoglycemia Protocol Digoxin (Lanoxin) 0.25 mg PO DAILY [facility] Last Admin: 08/24/18 08:45 Dose: 0.25 mg Docusate Sodium (Colace) 100 mg PO DAILY [facility] Last Admin: 08/24/18 08:46 Dose: 100 mg Glucagon (Glucagen Diagnostic Kit) 0 mg IM STAT PRN; Protocol PRN Reason: Hypoglycemia Protocol Glucagon (Glucagen Diagnostic Kit) 0 mg IM STAT PRN; Protocol PRN Reason: Hypoglycemia Protocol Amikacin Sulfate 250 mg/ (Sodium Chloride) 101 mls @ 100.609 mls/hr IVPB Q24H [facility]; Protocol Last Admin: 08/24/18 16:36 Dose: 100.609 mls/hr Piperacillin Sod/Tazobactam (Sod 2.25 gm/ Sodium Chloride) 100 mls @ 100 mls/hr IVPB Q8 [facility]; Protocol Last Admin: 08/25/18 00:15 Dose: 100 mls/hr Insulin Human Lispro (Humalog) 0 units SC ACHS [facility]; Protocol Last Admin: 08/25/18 00:17 Dose: Not Given Losartan Potassium (Cozaar) 100 mg PO DAILY [facility] Last Admin: 08/24/18 08:45 Dose: 100 mg Metoprolol Tartrate (Lopressor) 100 mg PO Q12 [facility] Last Admin: 08/24/18 22:43 Dose: 100 mg Ranolazine (Ranexa) 500 mg PO BID [facility] Last Admin: 08/24/18 16:38 Dose: 500 mg - Labs Labs: 08/24/18 05:09 08/24/18 05:09 PT 13.8 Seconds (9.8-13.1) H 08/24/18 16:46 INR 1.2 08/24/18 16:46 APTT 37.1 Seconds (25.6-37.1) 08/24/18 16:46 - Constitutional Appears: Well, Non-toxic, No Acute Distress - Head Exam Head Exam: ATRAUMATIC, NORMAL INSPECTION, NORMOCEPHALIC - Eye Exam Eye Exam: EOMI, PERRL Pupil Exam: NORMAL ACCOMODATION, PERRL - ENT Exam ENT Exam: Mucous Membranes Moist - Neck Exam Neck Exam: Full ROM, Normal Inspection - Respiratory Exam Respiratory Exam: Clear to Ausculation Bilateral, NORMAL BREATHING PATTERN - Cardiovascular Exam Cardiovascular Exam: REGULAR RHYTHM, +S1, +S2 - GI/Abdominal Exam GI & Abdominal Exam: Soft. absent: Tenderness Additional comments: Tube still draining 120ml - Extremities Exam Extremities Exam: Full ROM, Normal Capillary Refill, Normal Inspection - Back Exam Back Exam: NORMAL INSPECTION - Neurological Exam Neurological Exam: Alert, Awake, Oriented x3 - Psychiatric Exam Psychiatric exam: Normal Affect, Normal Mood - Skin Skin Exam: Dry, Intact, Normal Color, Warm Assessment and Plan (1) Sepsis Status: Resolved (2) Acute cholecystitis Status: Acute (3) Atrial fibrillation with RVR Status: Chronic (4) CHF (congestive heart failure) Status: Chronic - Assessment and Plan (Free Text) Assessment: 62 y/o man w/ pmh of [place] with RVR, HTN, CHF, DM2, hyperlipidemia, presented to ER due to Epigastric/LUQ pain that started on admission. Patient is admitted for sepsis and cholecystitis treatment. S/P Cholecystostomy tube placement day 8. CT:Distended gallbladder with cholelithaisis, limited pericholecystic fluid suspected Possible cholecystitis. + R and L diverticula, Enlargre prostate gland and L1 anterior compression fracture, age indeterminate. RUQ US: + Cholecystitis, cholelithiasis and sludge identified within the lumen of gallbladder Chest X-ray: mild-moderate pulmonary vascular congestion, no definite airspace disease b/l. Cardiomegaly not excluded Repeat Chest X-ray: Positive for Pulmonary vascular congestion, no sign of infiltrate or consolidation. *PICC line placed Plan: Acute cholecystitis -Pt placed NPO for cath - S/P Percutaneous cholecystostomy tube placement day 8 - MRCP and HIDA + cholesystitis. No common bile duct dilation. - Ct scan and RUQ US: + for cholecystitis - Regular diet - PICC line Placed, Possible discharge tomorrow with and self infusion at home. 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 Hyperlipidemia - Chronic, Controlled - Continue home medication Sepsis - resolved - Resolved Possible pneumonia + infiltrate - resolved - Resolved Acute kidney Injury - resolved - Resolved DVT prophylaxis - SCD - Xarelto 20 mg PO daily
--- NOTE | 2018-08-25 12:07 | CP.PCM.PN ---
Subjective - Date & Time of Evaluation Date of Evaluation: 08/25/18 Time of Evaluation: 08:00 - Subjective Subjective: GI Progress Note- Dr. Gutierrez Patient seen and examined. No new complaints. Hermes tube in place 140cc bilious fluid drainage. Tolerating regular diet. NPO this AM for cardiac cath. +OOB, - n/v/f/c Objective - Vital Signs/Intake and Output Vital Signs (last 24 hours): Temp Pulse Resp BP Pulse Ox 97.9 F 68 20 149/87 96 08/25/18 08:00 08/25/18 08:00 08/25/18 08:00 08/25/18 08:00 08/25/18 08:00 Intake and Output: 08/25/18 08/25/18 06:59 18:59 Output Total 80 120 Balance -80 -120 - Medications Medications: Current Medications Acyclovir (Zovirax) 400 mg PO BID [facility]; Protocol Last Admin: 08/24/18 16:38 Dose: 400 mg Acyclovir (Zovirax 5% Oint) 1 applic EXT Q3 [facility] Last Admin: 08/25/18 00:16 Dose: 1 applic Amlodipine Besylate (Norvasc) 10 mg PO DAILY [facility] Last Admin: 08/24/18 08:46 Dose: 10 mg Atorvastatin Calcium (Lipitor) 20 mg PO HS [facility] Last Admin: 08/24/18 22:44 Dose: 20 mg Dextrose (Dextrose 50% Inj) 0 ml IV STAT PRN; Protocol PRN Reason: Hypoglycemia Protocol Dextrose (Glutose 15) 0 gm PO ONCE PRN; Protocol PRN Reason: Hypoglycemia Protocol Dextrose (Dextrose 50% Inj) 0 ml IV STAT PRN; Protocol PRN Reason: Hypoglycemia Protocol Dextrose (Glutose 15) 0 gm PO ONCE PRN; Protocol PRN Reason: Hypoglycemia Protocol Digoxin (Lanoxin) 0.25 mg PO DAILY [facility] Last Admin: 08/24/18 08:45 Dose: 0.25 mg Docusate Sodium (Colace) 100 mg PO DAILY [facility] Last Admin: 08/24/18 08:46 Dose: 100 mg Glucagon (Glucagen Diagnostic Kit) 0 mg IM STAT PRN; Protocol PRN Reason: Hypoglycemia Protocol Glucagon (Glucagen Diagnostic Kit) 0 mg IM STAT PRN; Protocol PRN Reason: Hypoglycemia Protocol Amikacin Sulfate 250 mg/ (Sodium Chloride) 101 mls @ 100.609 mls/hr IVPB Q24H [facility]; Protocol Last Admin: 08/24/18 16:36 Dose: 100.609 mls/hr Piperacillin Sod/Tazobactam (Sod 2.25 gm/ Sodium Chloride) 100 mls @ 100 mls/hr IVPB Q8 [facility]; Protocol Last Admin: 08/25/18 00:15 Dose: 100 mls/hr Insulin Human Lispro (Humalog) 0 units SC ACHS [facility]; Protocol Last Admin: 08/25/18 00:17 Dose: Not Given Losartan Potassium (Cozaar) 100 mg PO DAILY [facility] Last Admin: 08/24/18 08:45 Dose: 100 mg Metoprolol Tartrate (Lopressor) 100 mg PO Q12 [facility] Last Admin: 08/24/18 22:43 Dose: 100 mg Ranolazine (Ranexa) 500 mg PO BID [facility] Last Admin: 08/24/18 16:38 Dose: 500 mg - Labs Labs: 08/24/18 05:09 08/24/18 05:09 PT 13.8 Seconds (9.8-13.1) H 08/24/18 16:46 INR 1.2 08/24/18 16:46 APTT 37.1 Seconds (25.6-37.1) 08/24/18 16:46 - Constitutional Appears: Non-toxic, No Acute Distress - Head Exam Head Exam: ATRAUMATIC - Eye Exam Eye Exam: EOMI. absent: Scleral icterus - Respiratory Exam Respiratory Exam: NORMAL BREATHING PATTERN. absent: Accessory Muscle Use, Respiratory Distress - Cardiovascular Exam Cardiovascular Exam: +S1, +S2. absent: Bradycardia, Tachycardia - GI/Abdominal Exam GI & Abdominal Exam: Soft. absent: Firm, Guarding, Rigid, Tenderness Additional comments: Hermes tube in place w/ drainage into bag - Extremities Exam Extremities Exam: absent: Calf Tenderness - Neurological Exam Neurological Exam: Alert, Awake, Oriented x3 - Psychiatric Exam Psychiatric exam: Normal Affect - Skin Skin Exam: Intact, Warm Assessment and Plan - Assessment and Plan (Free Text) Assessment: 62M w/ acute hermes s/p cholecystostomy tube; hyperbilirubinemia currently trending down Plan: - npo for cardiac cath today - monitor hermes tube output - continue to trend labs - will continue to follow - d/w Dr. Gutierrez GI attending PGY2
[2018-08-25] MEDS: Potassium Ch 20mEq in D5-1/2NS 1,000 ML IV SCH (23:47)
[2018-08-26] MEDS: Acyclovir 5% OINT 15 APPLIC/15 GM EXT SCH ×8 (01:40→22:51)
[2018-08-26 06:29] LABS: BLOOD UREA NITROGEN 22 mg/dl (9-20); CALCIUM 8.4 mg/dL (8.4-10.2); GFR NON-AFRICAN AMERICAN 56
[2018-08-26 06:32] LABS: HEMOGLOBIN 12.8 g/dL (12.0-18.0); MEAN CORPUSCULAR HEMOGLOBIN 28.7 pg (27.0-31.0); MEAN CORPUSCULAR HGB CONC 33.4 g/dL (33.0-37.0); RBC 4.46 Mil/uL (4.40-5.90); WHITE BLOOD COUNT 10.4 K/uL (4.8-10.8)
[2018-08-26 06:52] LABS: INR 1.3; PROTHROMBIN TIME 14.3 Seconds (9.8-13.1)
[2018-08-26] MEDS: Ranolazine 500 mg Extended Release Tablets PO SCH ×2 (08:30→17:01)
[2018-08-26] MEDS: Insulin Lispro (humaLOG) 100 Units/ml Inj SC SCH ×4 (09:00→22:51)
[2018-08-26] MEDS: Digoxin 250 mcg (0.25 mg) Tab PO SCH (09:00)
--- NOTE | 2018-08-26 11:09 | CP.PCM.PN ---
<Aki Roy - Last Filed: 08/26/18 15:02> Subjective - Date & Time of Evaluation Date of Evaluation: 08/26/18 Time of Evaluation: 07:00 - Subjective Subjective: Pt seen and examined at bedside no acute event overnight, he was NPO today and sent to Cath. He have no complain today. Objective - Vital Signs/Intake and Output Vital Signs (last 24 hours): Temp Pulse Resp BP Pulse Ox 97.6 F 77 19 142/80 95 08/26/18 07:49 08/26/18 07:49 08/26/18 07:49 08/26/18 07:49 08/26/18 07:49 Intake and Output: 08/26/18 08/26/18 06:59 18:59 Intake Total 1060 Output Total 350 Balance 710 - Medications Medications: Current Medications Acyclovir (Zovirax) 400 mg PO BID [facility]; Protocol Last Admin: 08/25/18 19:43 Dose: 400 mg Acyclovir (Zovirax 5% Oint) 1 applic EXT Q3 [facility] Last Admin: 08/26/18 05:40 Dose: 1 applic Amlodipine Besylate (Norvasc) 10 mg PO DAILY [facility] Last Admin: 08/25/18 09:00 Dose: Not Given Atorvastatin Calcium (Lipitor) 20 mg PO HS [facility] Last Admin: 08/25/18 23:14 Dose: 20 mg Dextrose (Dextrose 50% Inj) 0 ml IV STAT PRN; Protocol PRN Reason: Hypoglycemia Protocol Dextrose (Glutose 15) 0 gm PO ONCE PRN; Protocol PRN Reason: Hypoglycemia Protocol Dextrose (Dextrose 50% Inj) 0 ml IV STAT PRN; Protocol PRN Reason: Hypoglycemia Protocol Dextrose (Glutose 15) 0 gm PO ONCE PRN; Protocol PRN Reason: Hypoglycemia Protocol Digoxin (Lanoxin) 0.25 mg PO DAILY [facility] Last Admin: 08/25/18 09:00 Dose: Not Given Docusate Sodium (Colace) 100 mg PO DAILY [facility] Last Admin: 08/25/18 09:00 Dose: Not Given Glucagon (Glucagen Diagnostic Kit) 0 mg IM STAT PRN; Protocol PRN Reason: Hypoglycemia Protocol Glucagon (Glucagen Diagnostic Kit) 0 mg IM STAT PRN; Protocol PRN Reason: Hypoglycemia Protocol Amikacin Sulfate 250 mg/ (Sodium Chloride) 101 mls @ 100.609 mls/hr IVPB Q24H [facility]; Protocol Last Admin: 08/25/18 13:43 Dose: 100.609 mls/hr Piperacillin Sod/Tazobactam (Sod 2.25 gm/ Sodium Chloride) 100 mls @ 100 mls/hr IVPB Q8 [facility]; Protocol Last Admin: 08/26/18 01:39 Dose: 100 mls/hr Insulin Human Lispro (Humalog) 0 units SC ACHS [facility]; Protocol Last Admin: 08/25/18 23:10 Dose: Not Given Losartan Potassium (Cozaar) 100 mg PO DAILY [facility] Last Admin: 08/25/18 14:50 Dose: Not Given Metoprolol Tartrate (Lopressor) 100 mg PO Q12 [facility] Last Admin: 08/25/18 23:15 Dose: 100 mg Ranolazine (Ranexa) 500 mg PO BID [facility] Last Admin: 08/25/18 16:23 Dose: 500 mg - Labs Labs: 08/26/18 05:25 08/26/18 05:25 PT 14.3 Seconds (9.8-13.1) H 08/26/18 05:25 INR 1.3 08/26/18 05:25 APTT 37.1 Seconds (25.6-37.1) 08/24/18 16:46 - Constitutional Appears: Well, Non-toxic, No Acute Distress - Head Exam Head Exam: ATRAUMATIC, NORMAL INSPECTION, NORMOCEPHALIC - Eye Exam Eye Exam: EOMI, Normal appearance, PERRL Pupil Exam: NORMAL ACCOMODATION, PERRL - ENT Exam ENT Exam: Mucous Membranes Moist, Normal Exam - Neck Exam Neck Exam: Normal Inspection - Respiratory Exam Respiratory Exam: Clear to Ausculation Bilateral, NORMAL BREATHING PATTERN - Cardiovascular Exam Cardiovascular Exam: REGULAR RHYTHM, +S1, +S2 - GI/Abdominal Exam GI & Abdominal Exam: Soft, Normal Bowel Sounds - Extremities Exam Extremities Exam: Full ROM, Normal Capillary Refill, Normal Inspection - Back Exam Back Exam: NORMAL INSPECTION - Neurological Exam Neurological Exam: Alert, Awake, Oriented x3 - Psychiatric Exam Psychiatric exam: Normal Affect, Normal Mood - Skin Skin Exam: Dry, Intact, Normal Color, Warm Assessment and Plan (1) Sepsis Status: Resolved (2) Acute cholecystitis Status: Acute (3) Atrial fibrillation with RVR Status: Chronic (4) CHF (congestive heart failure) Status: Chronic - Assessment and Plan (Free Text) Assessment: 62 y/o man w/ pmh of [place] with RVR, HTN, CHF, DM2, hyperlipidemia, presented to ER due to Epigastric/LUQ pain that started on admission. Patient is admitted for sepsis and cholecystitis treatment. S/P Cholecystostomy tube placement day 9. CT:Distended gallbladder with cholelithaisis, limited pericholecystic fluid suspected Possible cholecystitis. + R and L diverticula, Enlargre prostate gland and L1 anterior compression fracture, age indeterminate. RUQ US: + Cholecystitis, cholelithiasis and sludge identified within the lumen of gallbladder Chest X-ray: mild-moderate pulmonary vascular congestion, no definite airspace disease b/l. Cardiomegaly not excluded Repeat Chest X-ray: Positive for Pulmonary vascular congestion, no sign of infiltrate or consolidation. *PICC line placed Plan: Acute cholecystitis -Pt placed NPO for cath - S/P Percutaneous cholecystostomy tube placement day 9 - MRCP and HIDA + cholesystitis. No common bile duct dilation. - Ct scan and RUQ US: + for cholecystitis - Regular diet - PICC line Placed - Continue Antibiotic - Amikacin Day 9 - Zosyn 2.25 Day 10 - Gentamicin level <.06 - Amikacin 2.5L -Cath today done today, showed 50% stenosis in OA, LAD. -Cardiology and surgery will discuss plan for patient, will follow recommendation. -IF no surgery, patient can b DC tomorrow as Abx dose will be completed. 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 Hyperlipidemia - Chronic, Controlled - Continue home medication Sepsis - resolved - Resolved Possible pneumonia + infiltrate - resolved - Resolved Acute kidney Injury - resolved - Resolved DVT prophylaxis - SCD - Xarelto 20 mg PO daily <Aniyah Carcamo - Last Filed: 08/26/18 17:08> Objective - Vital Signs/Intake and Output Vital Signs (last 24 hours): Temp Pulse Resp BP Pulse Ox 97.7 F 64 18 135/79 96 08/26/18 16:27 08/26/18 16:27 08/26/18 16:27 08/26/18 16:27 08/26/18 16:27 Intake and Output: 08/26/18 08/26/18 06:59 18:59 Intake Total 1060 Output Total 350 Balance 710 - Medications Medications: Current Medications Acyclovir (Zovirax) 400 mg PO BID [facility]; Protocol Last Admin: 08/26/18 09:00 Dose: Not Given Acyclovir (Zovirax 5% Oint) 1 applic EXT Q3 [facility] Last Admin: 08/26/18 13:00 Dose: Not Given Amlodipine Besylate (Norvasc) 10 mg PO DAILY [facility] Last Admin: 08/26/18 08:30 Dose: Not Given Atorvastatin Calcium (Lipitor) 20 mg PO HS [facility] Last Admin: 08/25/18 23:14 Dose: 20 mg Dextrose (Dextrose 50% Inj) 0 ml IV STAT PRN; Protocol PRN Reason: Hypoglycemia Protocol Dextrose (Glutose 15) 0 gm PO ONCE PRN; Protocol PRN Reason: Hypoglycemia Protocol Dextrose (Dextrose 50% Inj) 0 ml IV STAT PRN; Protocol PRN Reason: Hypoglycemia Protocol Dextrose (Glutose 15) 0 gm PO ONCE PRN; Protocol PRN Reason: Hypoglycemia Protocol Digoxin (Lanoxin) 0.25 mg PO DAILY [facility] Last Admin: 08/26/18 09:00 Dose: Not Given Docusate Sodium (Colace) 100 mg PO DAILY [facility] Last Admin: 08/26/18 09:00 Dose: Not Given Glucagon (Glucagen Diagnostic Kit) 0 mg IM STAT PRN; Protocol PRN Reason: Hypoglycemia Protocol Glucagon (Glucagen Diagnostic Kit) 0 mg IM STAT PRN; Protocol PRN Reason: Hypoglycemia Protocol Amikacin Sulfate 250 mg/ (Sodium Chloride) 101 mls @ 100.609 mls/hr IVPB Q24H [facility]; Protocol Last Admin: 08/25/18 13:43 Dose: 100.609 mls/hr Piperacillin Sod/Tazobactam (Sod 2.25 gm/ Sodium Chloride) 100 mls @ 100 mls/hr IVPB Q8 [facility]; Protocol Last Admin: 08/26/18 08:30 Dose: Not Given Insulin Human Lispro (Humalog) 0 units SC ACHS [facility]; Protocol Last Admin: 08/26/18 15:49 Dose: Not Given Losartan Potassium (Cozaar) 100 mg PO DAILY [facility] Last Admin: 08/26/18 09:00 Dose: Not Given Metoprolol Tartrate (Lopressor) 100 mg PO Q12 [facility] Last Admin: 08/26/18 08:30 Dose: Not Given Ranolazine (Ranexa) 500 mg PO BID [facility] Last Admin: 08/26/18 08:30 Dose: Not Given - Labs Labs: 08/26/18 05:25 08/26/18 05:25 PT 14.3 Seconds (9.8-13.1) H 08/26/18 05:25 INR 1.3 08/26/18 05:25 APTT 37.1 Seconds (25.6-37.1) 08/24/18 16:46 Attending/Attestation - Attestation I have personally seen and examined this patient.: Yes I have fully participated in the care of the patient.: Yes I have reviewed all pertinent clinical information, including history, physical exam and plan: Yes Notes (Text): Pt went for Cardiac cath today. He will complete 10 days of IV Zosyn and Amikacin tomorrow as rec by Dr Beckwith Still with Cholecystostomy tube , drained 470 ml yesterday I discussed case with Dr Greenberg and he will reach out to Dr Portillo so he could plan on the surgery
[2018-08-26] MEDS: Potassium Ch 20mEq in D5-1/2NS 1,000 ML IV SCH (17:02)
--- NOTE | 2018-08-26 22:49 | CP.PCM.PN ---
Subjective - Date & Time of Evaluation Date of Evaluation: 08/25/18 Time of Evaluation: 11:00 - Subjective Subjective: cath was planned but deferred due to delay in schedule Objective - Vital Signs/Intake and Output Vital Signs (last 24 hours): Temp Pulse Resp BP Pulse Ox 97.7 F 64 18 135/79 96 08/26/18 16:27 08/26/18 16:27 08/26/18 16:27 08/26/18 16:27 08/26/18 16:27 Intake and Output: 08/26/18 08/27/18 18:59 06:59 Output Total 125 Balance -125 - Medications Medications: Current Medications Acyclovir (Zovirax) 400 mg PO BID [facility]; Protocol Last Admin: 08/26/18 17:06 Dose: 400 mg Acyclovir (Zovirax 5% Oint) 1 applic EXT Q3 [facility] Last Admin: 08/26/18 17:03 Dose: 1 applic Amlodipine Besylate (Norvasc) 10 mg PO DAILY [facility] Last Admin: 08/26/18 08:30 Dose: Not Given Atorvastatin Calcium (Lipitor) 20 mg PO HS [facility] Last Admin: 08/25/18 23:14 Dose: 20 mg Dextrose (Dextrose 50% Inj) 0 ml IV STAT PRN; Protocol PRN Reason: Hypoglycemia Protocol Dextrose (Glutose 15) 0 gm PO ONCE PRN; Protocol PRN Reason: Hypoglycemia Protocol Dextrose (Dextrose 50% Inj) 0 ml IV STAT PRN; Protocol PRN Reason: Hypoglycemia Protocol Dextrose (Glutose 15) 0 gm PO ONCE PRN; Protocol PRN Reason: Hypoglycemia Protocol Digoxin (Lanoxin) 0.25 mg PO DAILY [facility] Last Admin: 08/26/18 09:00 Dose: Not Given Docusate Sodium (Colace) 100 mg PO DAILY [facility] Last Admin: 08/26/18 09:00 Dose: Not Given Glucagon (Glucagen Diagnostic Kit) 0 mg IM STAT PRN; Protocol PRN Reason: Hypoglycemia Protocol Glucagon (Glucagen Diagnostic Kit) 0 mg IM STAT PRN; Protocol PRN Reason: Hypoglycemia Protocol Amikacin Sulfate 250 mg/ (Sodium Chloride) 101 mls @ 100.609 mls/hr IVPB Q24H [facility]; Protocol Last Admin: 08/26/18 17:47 Dose: 100.609 mls/hr Piperacillin Sod/Tazobactam (Sod 2.25 gm/ Sodium Chloride) 100 mls @ 100 mls/hr IVPB Q8 [facility]; Protocol Last Admin: 08/26/18 16:59 Dose: 100 mls/hr Insulin Human Lispro (Humalog) 0 units SC ACHS [facility]; Protocol Last Admin: 08/26/18 17:03 Dose: Not Given Losartan Potassium (Cozaar) 100 mg PO DAILY [facility] Last Admin: 08/26/18 09:00 Dose: Not Given Metoprolol Tartrate (Lopressor) 100 mg PO Q12 [facility] Last Admin: 08/26/18 08:30 Dose: Not Given Ranolazine (Ranexa) 500 mg PO BID [facility] Last Admin: 08/26/18 17:01 Dose: 500 mg - Labs Labs: 08/26/18 05:25 08/26/18 05:25 PT 14.3 Seconds (9.8-13.1) H 08/26/18 05:25 INR 1.3 08/26/18 05:25 APTT 37.1 Seconds (25.6-37.1) 08/24/18 16:46 - Constitutional Appears: Well - Head Exam Head Exam: ATRAUMATIC, NORMAL INSPECTION, NORMOCEPHALIC - Eye Exam Eye Exam: EOMI, Normal appearance, PERRL Pupil Exam: NORMAL ACCOMODATION, PERRL - ENT Exam ENT Exam: Mucous Membranes Moist, Normal Exam - Neck Exam Neck Exam: Full ROM, Normal Inspection. absent: Lymphadenopathy - Respiratory Exam Respiratory Exam: Clear to Ausculation Bilateral, NORMAL BREATHING PATTERN - Cardiovascular Exam Cardiovascular Exam: REGULAR RHYTHM, +S1, +S2. absent: Murmur - GI/Abdominal Exam GI & Abdominal Exam: Soft, Normal Bowel Sounds. absent: Tenderness Additional comments: biliary drain in place - Extremities Exam Extremities Exam: Full ROM, Normal Capillary Refill, Normal Inspection. absent: Joint Swelling, Pedal Edema - Back Exam Back Exam: NORMAL INSPECTION - Neurological Exam Neurological Exam: Alert, Awake, CN II-XII Intact, Normal Gait, Oriented x3 - Psychiatric Exam Psychiatric exam: Normal Affect, Normal Mood - Skin Skin Exam: Dry, Intact, Normal Color, Warm Assessment and Plan (1) Acute cholecystitis Status: Acute (2) Atrial fibrillation with RVR Status: Chronic (3) CHF (congestive heart failure) Status: Chronic (4) Sepsis Status: Resolved (5) Septic shock Status: Acute
--- NOTE | 2018-08-26 22:52 | CP.PCM.PN ---
Subjective - Date & Time of Evaluation Date of Evaluation: 08/26/18 Time of Evaluation: 15:00 - Subjective Subjective: s/p LHCx showing 2 vessel moderate CAD LAD proximal 55% mid 70% OM mid 60% Objective - Vital Signs/Intake and Output Vital Signs (last 24 hours): Temp Pulse Resp BP Pulse Ox 97.7 F 80 18 124/77 96 08/26/18 16:27 08/26/18 22:50 08/26/18 16:27 08/26/18 22:50 08/26/18 16:27 Intake and Output: 08/26/18 08/27/18 18:59 06:59 Output Total 125 Balance -125 - Medications Medications: Current Medications Acyclovir (Zovirax) 400 mg PO BID [facility]; Protocol Last Admin: 08/26/18 17:06 Dose: 400 mg Acyclovir (Zovirax 5% Oint) 1 applic EXT Q3 [facility] Last Admin: 08/26/18 17:03 Dose: 1 applic Amlodipine Besylate (Norvasc) 10 mg PO DAILY [facility] Last Admin: 08/26/18 08:30 Dose: Not Given Atorvastatin Calcium (Lipitor) 20 mg PO HS [facility] Last Admin: 08/26/18 22:50 Dose: 20 mg Dextrose (Dextrose 50% Inj) 0 ml IV STAT PRN; Protocol PRN Reason: Hypoglycemia Protocol Dextrose (Glutose 15) 0 gm PO ONCE PRN; Protocol PRN Reason: Hypoglycemia Protocol Dextrose (Dextrose 50% Inj) 0 ml IV STAT PRN; Protocol PRN Reason: Hypoglycemia Protocol Dextrose (Glutose 15) 0 gm PO ONCE PRN; Protocol PRN Reason: Hypoglycemia Protocol Digoxin (Lanoxin) 0.25 mg PO DAILY [facility] Last Admin: 08/26/18 09:00 Dose: Not Given Docusate Sodium (Colace) 100 mg PO DAILY [facility] Last Admin: 08/26/18 09:00 Dose: Not Given Glucagon (Glucagen Diagnostic Kit) 0 mg IM STAT PRN; Protocol PRN Reason: Hypoglycemia Protocol Glucagon (Glucagen Diagnostic Kit) 0 mg IM STAT PRN; Protocol PRN Reason: Hypoglycemia Protocol Amikacin Sulfate 250 mg/ (Sodium Chloride) 101 mls @ 100.609 mls/hr IVPB Q24H [facility]; Protocol Last Admin: 08/26/18 17:47 Dose: 100.609 mls/hr Piperacillin Sod/Tazobactam (Sod 2.25 gm/ Sodium Chloride) 100 mls @ 100 mls/hr IVPB Q8 [facility]; Protocol Last Admin: 08/26/18 16:59 Dose: 100 mls/hr Insulin Human Lispro (Humalog) 0 units SC ACHS [facility]; Protocol Last Admin: 08/26/18 17:03 Dose: Not Given Losartan Potassium (Cozaar) 100 mg PO DAILY [facility] Last Admin: 08/26/18 09:00 Dose: Not Given Metoprolol Tartrate (Lopressor) 100 mg PO Q12 [facility] Last Admin: 08/26/18 22:50 Dose: 100 mg Ranolazine (Ranexa) 500 mg PO BID [facility] Last Admin: 08/26/18 17:01 Dose: 500 mg - Labs Labs: 08/26/18 05:25 08/26/18 05:25 PT 14.3 Seconds (9.8-13.1) H 08/26/18 05:25 INR 1.3 08/26/18 05:25 APTT 37.1 Seconds (25.6-37.1) 08/24/18 16:46 - Constitutional Appears: Well - Head Exam Head Exam: ATRAUMATIC, NORMAL INSPECTION, NORMOCEPHALIC - Eye Exam Eye Exam: EOMI, Normal appearance, PERRL Pupil Exam: NORMAL ACCOMODATION, PERRL - ENT Exam ENT Exam: Mucous Membranes Moist, Normal Exam - Neck Exam Neck Exam: Full ROM, Normal Inspection. absent: Lymphadenopathy - Respiratory Exam Respiratory Exam: Clear to Ausculation Bilateral, NORMAL BREATHING PATTERN - Cardiovascular Exam Cardiovascular Exam: REGULAR RHYTHM, +S1, +S2. absent: Murmur - GI/Abdominal Exam GI & Abdominal Exam: Soft, Normal Bowel Sounds. absent: Tenderness - Extremities Exam Extremities Exam: Full ROM, Normal Capillary Refill, Normal Inspection. absent: Joint Swelling, Pedal Edema - Back Exam Back Exam: NORMAL INSPECTION - Neurological Exam Neurological Exam: Alert, Awake, CN II-XII Intact, Normal Gait, Oriented x3 - Psychiatric Exam Psychiatric exam: Normal Affect, Normal Mood - Skin Skin Exam: Dry, Intact, Normal Color, Warm Assessment and Plan (1) CAD (coronary artery disease) Assessment & Plan: s/p LHCx showing 2 vessel moderate CAD would keep pt on dapt cont with losartan, lopressor cont ranexa statins Status: Acute (2) Acute cholecystitis Status: Acute (3) Atrial fibrillation with RVR Status: Chronic (4) CHF (congestive heart failure) Status: Chronic (5) Sepsis Status: Resolved (6) Septic shock Status: Acute
--- NOTE | 2018-08-26 22:52 | CP.PCM.PN ---
Subjective - Date & Time of Evaluation Date of Evaluation: 08/26/18 Time of Evaluation: 22:49 - Subjective Subjective: Clinically doing well Objective - Vital Signs/Intake and Output Vital Signs (last 24 hours): Temp Pulse Resp BP Pulse Ox 97.7 F 64 18 135/79 96 08/26/18 16:27 08/26/18 16:27 08/26/18 16:27 08/26/18 16:27 08/26/18 16:27 Intake and Output: 08/26/18 08/27/18 18:59 06:59 Output Total 125 Balance -125 - Medications Medications: Current Medications Acyclovir (Zovirax) 400 mg PO BID [facility]; Protocol Last Admin: 08/26/18 17:06 Dose: 400 mg Acyclovir (Zovirax 5% Oint) 1 applic EXT Q3 [facility] Last Admin: 08/26/18 17:03 Dose: 1 applic Amlodipine Besylate (Norvasc) 10 mg PO DAILY [facility] Last Admin: 08/26/18 08:30 Dose: Not Given Atorvastatin Calcium (Lipitor) 20 mg PO HS [facility] Last Admin: 08/25/18 23:14 Dose: 20 mg Dextrose (Dextrose 50% Inj) 0 ml IV STAT PRN; Protocol PRN Reason: Hypoglycemia Protocol Dextrose (Glutose 15) 0 gm PO ONCE PRN; Protocol PRN Reason: Hypoglycemia Protocol Dextrose (Dextrose 50% Inj) 0 ml IV STAT PRN; Protocol PRN Reason: Hypoglycemia Protocol Dextrose (Glutose 15) 0 gm PO ONCE PRN; Protocol PRN Reason: Hypoglycemia Protocol Digoxin (Lanoxin) 0.25 mg PO DAILY [facility] Last Admin: 08/26/18 09:00 Dose: Not Given Docusate Sodium (Colace) 100 mg PO DAILY [facility] Last Admin: 08/26/18 09:00 Dose: Not Given Glucagon (Glucagen Diagnostic Kit) 0 mg IM STAT PRN; Protocol PRN Reason: Hypoglycemia Protocol Glucagon (Glucagen Diagnostic Kit) 0 mg IM STAT PRN; Protocol PRN Reason: Hypoglycemia Protocol Amikacin Sulfate 250 mg/ (Sodium Chloride) 101 mls @ 100.609 mls/hr IVPB Q24H [facility]; Protocol Last Admin: 08/26/18 17:47 Dose: 100.609 mls/hr Piperacillin Sod/Tazobactam (Sod 2.25 gm/ Sodium Chloride) 100 mls @ 100 mls/hr IVPB Q8 [facility]; Protocol Last Admin: 08/26/18 16:59 Dose: 100 mls/hr Insulin Human Lispro (Humalog) 0 units SC ACHS [facility]; Protocol Last Admin: 08/26/18 17:03 Dose: Not Given Losartan Potassium (Cozaar) 100 mg PO DAILY [facility] Last Admin: 08/26/18 09:00 Dose: Not Given Metoprolol Tartrate (Lopressor) 100 mg PO Q12 [facility] Last Admin: 08/26/18 08:30 Dose: Not Given Ranolazine (Ranexa) 500 mg PO BID [facility] Last Admin: 08/26/18 17:01 Dose: 500 mg - Labs Labs: 08/26/18 05:25 08/26/18 05:25 PT 14.3 Seconds (9.8-13.1) H 08/26/18 05:25 INR 1.3 08/26/18 05:25 APTT 37.1 Seconds (25.6-37.1) 08/24/18 16:46 - Head Exam Head Exam: ATRAUMATIC - Eye Exam Eye Exam: Normal appearance Pupil Exam: PERRL - Respiratory Exam Respiratory Exam: Clear to Ausculation Bilateral - Cardiovascular Exam Cardiovascular Exam: REGULAR RHYTHM - GI/Abdominal Exam GI & Abdominal Exam: Soft. absent: Tenderness Assessment and Plan (1) Acute cholecystitis Assessment & Plan: Cardiac cath showed 2 areas of stenosis in coronary arteries of just 50%. Management as per surgery and cardiology in terms of possible cholecystectomy Status: Acute (2) Sepsis Status: Resolved
[2018-08-27] MEDS: Acyclovir 5% OINT 15 APPLIC/15 GM EXT SCH ×6 (01:25→16:38)
[2018-08-27 06:16] LABS: HEMOGLOBIN 13.3 g/dL (12.0-18.0); MEAN CORPUSCULAR HEMOGLOBIN 28.8 pg (27.0-31.0); MEAN CORPUSCULAR HGB CONC 33.5 g/dL (33.0-37.0); RBC 4.63 Mil/uL (4.40-5.90)
[2018-08-27 06:41] LABS: BLOOD UREA NITROGEN 21 mg/dl (9-20); CALCIUM 8.7 mg/dL (8.4-10.2); GFR NON-AFRICAN AMERICAN 56
[2018-08-27] MEDS: Insulin Lispro (humaLOG) 100 Units/ml Inj SC SCH ×3 (06:41→16:30)
[2018-08-27] MEDS: Digoxin 250 mcg (0.25 mg) Tab PO SCH (08:45)
[2018-08-27] MEDS: Ranolazine 500 mg Extended Release Tablets PO SCH ×2 (08:46→16:37)
[2018-08-27 08:48] VITALS: PULSE 68
--- NOTE | 2018-08-27 09:41 | CP.PCM.PN ---
Subjective - Date & Time of Evaluation Date of Evaluation: 08/27/18 Time of Evaluation: 09:39 - Subjective Subjective: GI Progress Note- Dr. Gutierrez Patient seen and examined at bedside. s/p Cardiac Cath showing 2 vessel disease at 50%. No new complaints at this time. Tolerating regular diet. Hermes tube in place 385cc bilious drainage. +OOB, - n/v/d/f/c Objective - Vital Signs/Intake and Output Vital Signs (last 24 hours): Temp Pulse Resp BP Pulse Ox 98.2 F 68 20 132/86 97 08/27/18 08:17 08/27/18 08:46 08/27/18 08:17 08/27/18 08:46 08/27/18 08:17 Intake and Output: 08/27/18 08/27/18 06:59 18:59 Output Total 260 Balance -260 - Medications Medications: Current Medications Acyclovir (Zovirax) 400 mg PO BID MARIA ESTHER; Protocol Last Admin: 08/27/18 08:47 Dose: 400 mg Acyclovir (Zovirax 5% Oint) 1 applic EXT Q3 [facility] Last Admin: 08/27/18 08:47 Dose: 1 applic Amlodipine Besylate (Norvasc) 10 mg PO DAILY [facility] Last Admin: 08/27/18 08:46 Dose: 10 mg Atorvastatin Calcium (Lipitor) 20 mg PO HS [facility] Last Admin: 08/26/18 22:50 Dose: 20 mg Dextrose (Dextrose 50% Inj) 0 ml IV STAT PRN; Protocol PRN Reason: Hypoglycemia Protocol Dextrose (Glutose 15) 0 gm PO ONCE PRN; Protocol PRN Reason: Hypoglycemia Protocol Dextrose (Dextrose 50% Inj) 0 ml IV STAT PRN; Protocol PRN Reason: Hypoglycemia Protocol Dextrose (Glutose 15) 0 gm PO ONCE PRN; Protocol PRN Reason: Hypoglycemia Protocol Digoxin (Lanoxin) 0.25 mg PO DAILY [facility] Last Admin: 08/27/18 08:45 Dose: 0.25 mg Docusate Sodium (Colace) 100 mg PO DAILY [facility] Last Admin: 08/27/18 08:41 Dose: Not Given Glucagon (Glucagen Diagnostic Kit) 0 mg IM STAT PRN; Protocol PRN Reason: Hypoglycemia Protocol Glucagon (Glucagen Diagnostic Kit) 0 mg IM STAT PRN; Protocol PRN Reason: Hypoglycemia Protocol Amikacin Sulfate 250 mg/ (Sodium Chloride) 101 mls @ 100.609 mls/hr IVPB Q24H [facility]; Protocol Last Admin: 08/26/18 17:47 Dose: 100.609 mls/hr Piperacillin Sod/Tazobactam (Sod 2.25 gm/ Sodium Chloride) 100 mls @ 100 mls/hr IVPB Q8 [facility]; Protocol Last Admin: 08/27/18 08:47 Dose: 100 mls/hr Insulin Human Lispro (Humalog) 0 units SC ACHS [facility]; Protocol Last Admin: 08/27/18 06:41 Dose: Not Given Losartan Potassium (Cozaar) 100 mg PO DAILY [facility] Last Admin: 08/27/18 08:45 Dose: 100 mg Metoprolol Tartrate (Lopressor) 100 mg PO Q12 [facility] Last Admin: 08/27/18 08:46 Dose: 100 mg Ranolazine (Ranexa) 500 mg PO BID [facility] Last Admin: 08/27/18 08:46 Dose: 500 mg - Labs Labs: 08/27/18 05:45 08/27/18 05:45 PT 14.3 Seconds (9.8-13.1) H 08/26/18 05:25 INR 1.3 08/26/18 05:25 APTT 37.1 Seconds (25.6-37.1) 08/24/18 16:46 - Constitutional Appears: Non-toxic, No Acute Distress - Head Exam Head Exam: ATRAUMATIC - Eye Exam Eye Exam: EOMI. absent: Scleral icterus - ENT Exam ENT Exam: Mucous Membranes Moist - Respiratory Exam Respiratory Exam: NORMAL BREATHING PATTERN. absent: Accessory Muscle Use, Respiratory Distress - Cardiovascular Exam Cardiovascular Exam: +S1, +S2. absent: Bradycardia, Tachycardia - GI/Abdominal Exam GI & Abdominal Exam: Soft. absent: Distended, Firm, Guarding, Rigid, Tenderness Additional comments: Hermes tube in place w/ 385cc bilious drainage - Neurological Exam Neurological Exam: Alert, Awake, Oriented x3 - Psychiatric Exam Psychiatric exam: Normal Affect - Skin Skin Exam: Intact, Warm Assessment and Plan - Assessment and Plan (Free Text) Assessment: 62M w/ acute cholecystitis s/p hermes tube placement on IV Abx, w/ CAD s/p Cardiac cath 2 vessel disease moderate CAD LAD proximal 55% mid 70% OM mid 60% Plan: - c/w IVAbx per ID - f/u recs per Cardio and Surgery - monitor hermes tube output - discussed w/ Dr. Gutierrez GI attending PGY2
--- NOTE | 2018-08-27 13:13 | CP.PCM.DIS ---
<Aki Roy - Last Filed: 08/27/18 14:24> Provider - Provider Date of Admission: 08/16/18 10:36 Attending physician: Magali Stanley MD Consults: 08/16/18 10:42 Surgery [General Surgery Consult] Stat Comment: Consulting Provider: Javon Hodges Consulting Physician: Javon Hodges Reason for Consult: acute cholecystitis 08/16/18 10:50 Critical Care Consult Stat Comment: Consulting Provider: Mel Sher Consulting Physician: Mel Sher Reason for Consult: septic shock 08/16/18 10:51 Cardiology Consult Stat Comment: Consulting Provider: Oziel Portillo Consulting Physician: Oziel Portillo Reason for Consult: afib with rvr 08/16/18 10:52 Infectious Disease Consult Stat Comment: Consulting Provider: Adiel Beckwith Consulting Physician: Adiel Beckwith Reason for Consult: septic shock 08/16/18 10:53 Gastroenterology Consult Stat Comment: Consulting Provider: Emil Gutierrez Consulting Physician: Emil Gutierrez Reason for Consult: cholelithiasis 08/17/18 09:00 Case Management Referral Routine Comment: Physician Instructions: Reason For Exam: admission 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 08/18/18 08:00 Social Work Referral Routine Comment: none Physician Instructions: Reason For Exam: visiting nurse for cholecystostomy tube management Time Spent in preparation of Discharge (in minutes): 20 Diagnosis - Discharge Diagnosis (1) Sepsis Status: Resolved (2) Acute cholecystitis Status: Acute (3) Atrial fibrillation with RVR Status: Chronic (4) CHF (congestive heart failure) Status: Chronic Hospital Course - Lab Results Lab Results: Micro Results 08/20/18 11:11 Naris MRSA Culture (Admit) - Final MRSA NOT DETECTED 08/17/18 13:00 Bile Gram Stain - Final 08/17/18 13:00 Bile Body Fluid Culture - Final No growth. 08/16/18 07:50 Blood Blood Culture - Final NO GROWTH AFTER 5 DAYS 08/16/18 07:50 Blood Gram Stain - Final TEST NOT PERFORMED 08/16/18 07:50 Blood Blood Culture - Final NO GROWTH AFTER 5 DAYS 08/16/18 07:50 Blood Gram Stain - Final TEST NOT PERFORMED 08/16/18 18:11 Nose MRSA Culture (Admit) - Final MRSA NOT DETECTED 08/16/18 08:00 Urine,Clean Catch Urine Culture - Final <10,000 CFU/ML. MULTIPLE SPECIES. PROBABLE CONTAMINATION. Most Recent Lab Values WBC 10.0 K/uL (4.8-10.8) 08/27/18 05:45 RBC 4.63 Mil/uL (4.40-5.90) 08/27/18 05:45 Hgb 13.3 g/dL (12.0-18.0) 08/27/18 05:45 Hct 39.8 % (35.0-51.0) 08/27/18 05:45 MCV 86.0 fl (80.0-94.0) 08/27/18 05:45 MCH 28.8 pg (27.0-31.0) 08/27/18 05:45 MCHC 33.5 g/dL (33.0-37.0) 08/27/18 05:45 RDW 16.0 % (11.5-14.5) H 08/27/18 05:45 Plt Count 348 K/uL (130-400) 08/27/18 05:45 MPV 9.3 fl (7.2-11.7) 08/19/18 04:20 Neut % (Auto) 67.6 % (50.0-75.0) 08/19/18 04:20 Lymph % (Auto) 15.4 % (20.0-40.0) L 08/19/18 04:20 [place] % (Auto) 13.5 % (0.0-10.0) H 08/19/18 04:20 Eos % (Auto) 3.0 % (0.0-4.0) 08/19/18 04:20 Baso % (Auto) 0.5 % (0.0-2.0) 08/19/18 04:20 Neut # (Auto) 3.8 K/uL (1.8-7.0) 08/19/18 04:20 Lymph # (Auto) 0.9 K/uL (1.0-4.3) L 08/19/18 04:20 [place] # (Auto) 0.8 K/uL (0.0-0.8) 08/19/18 04:20 Eos # (Auto) 0.2 K/uL (0.0-0.7) 08/19/18 04:20 Baso # (Auto) 0.0 K/uL (0.0-0.2) 08/19/18 04:20 Neutrophils % (Manual) 79 % (42-75) H 08/18/18 04:30 Lymphocytes % (Manual) 12 % (20-50) L 08/18/18 04:30 Reactive Lymphs % 1 % (0-0) H 08/18/18 04:30 Monocytes % (Manual) 8 % (0-10) 08/18/18 04:30 Platelet Estimate Normal (NORMAL) 08/18/18 04:30 Large Platelets Present 08/18/18 04:30 Anisocytosis (manual) Slight 08/18/18 04:30 Ovalocytes Slight 08/18/18 04:30 ESR 33 mm/hr (0-20) H 08/17/18 04:35 PT 14.3 Seconds (9.8-13.1) H 08/26/18 05:25 INR 1.3 08/26/18 05:25 APTT 37.1 Seconds (25.6-37.1) 08/24/18 16:46 pCO2 34 mm/Hg (35-45) L 08/16/18 19:12 pO2 64 mm/Hg (80-100) L 08/16/18 19:12 HCO3 24.9 mmol/L (21-28) 08/16/18 19:12 ABG pH 7.45 (7.35-7.45) 08/16/18 19:12 ABG Total CO2 24.6 mmol/L (22-28) 08/16/18 19:12 ABG O2 Saturation 95.5 % (95-98) 08/16/18 19:12 ABG Base Excess 0.1 mmol/L (-2.0-3.0) 08/16/18 19:12 Jamie Test Yes 08/16/18 19:12 ABG Potassium 3.9 mmol/L (3.6-5.2) 08/16/18 19:12 VBG pH 7.45 (7.32-7.43) H 08/16/18 11:22 VBG pCO2 35 mmHg (40-60) L 08/16/18 11:22 VBG HCO3 25.3 mmol/L 08/16/18 11:22 VBG Total CO2 25.4 mmol/L (22-28) 08/16/18 11:22 VBG O2 Sat (Calc) 92.9 % (40-65) H 08/16/18 11:22 VBG Base Excess 0.7 mmol/L (0.0-2.0) 08/16/18 11:22 VBG Potassium 3.3 mmol/L (3.6-5.2) L 08/16/18 11:22 A-a O2 Difference 93.0 mm/Hg 08/16/18 19:12 Sodium 133.0 mmol/L (132-148) 08/16/18 19:12 Chloride 100.0 mmol/L (98-107) 08/16/18 19:12 Glucose 170 mg/dL (75-110) H 08/16/18 19:12 Lactate 2.5 mmol/L (0.7-2.1) H 08/16/18 19:12 Vent Mode N/c 08/16/18 19:12 FiO2 28.0 % 08/16/18 19:12 Blood Gas Comments Lac=2.9 08/16/18 14:19 Crit Value Called To toribio Ray 08/16/18 14:19 Crit Value Called By 22 08/16/18 14:19 Crit Value Read Back Y 08/16/18 14:19 Blood Gas Notified Time 1425 08/16/18 14:19 Sodium 135 mmol/l (132-148) 08/27/18 05:45 Potassium 4.8 MMOL/L (3.6-5.0) 08/27/18 05:45 Chloride 103 mmol/L (98-107) 08/27/18 05:45 Carbon Dioxide 24 mmol/L (22-30) 08/27/18 05:45 Anion Gap 13 (10-20) 08/27/18 05:45 BUN 21 mg/dl (9-20) H 08/27/18 05:45 Creatinine 1.3 mg/dl (0.8-1.5) 08/27/18 05:45 Est GFR ( Amer) > 60 08/27/18 05:45 Est GFR (Non-Af Amer) 56 08/27/18 05:45 POC Glucose (mg/dL) 134 mg/dL (65-110) H 08/27/18 05:04 Random Glucose 137 mg/dL (75-110) H 08/27/18 05:45 Lactic Acid 0.8 MMOL/L (0.7-2.1) 08/17/18 04:35 Calcium 8.7 mg/dL (8.4-10.2) 08/27/18 05:45 Phosphorus 4.6 mg/dl (2.5-4.5) H 08/24/18 05:09 Magnesium 1.8 MG/DL (1.6-2.3) 08/24/18 05:09 Total Bilirubin 2.0 mg/dl (0.2-1.3) H 08/24/18 05:09 Direct Bilirubin 5.2 mg/ml (0.0-0.4) H 08/17/18 07:08 AST 44 U/L (17-59) 08/24/18 05:09 ALT 52 U/L (21-72) 08/24/18 05:09 Alkaline Phosphatase 270 U/L (38-126) H 08/24/18 05:09 Troponin I 0.0150 ng/mL (0.00-0.120) 08/16/18 07:50 NT-Pro-B Natriuret Pep 1900 pg/ml (0-900) H 08/16/18 07:50 Total Protein 7.9 G/DL (6.3-8.2) 08/24/18 05:09 Albumin 3.7 g/dL (3.5-5.0) 08/24/18 05:09 Globulin 4.2 gm/dL (2.2-3.9) H 08/24/18 05:09 Albumin/Globulin Ratio 0.9 (1.0-2.1) L 08/24/18 05:09 Lipase 105 U/L (23-300) 08/16/18 07:50 Procalcitonin 53.48 NG/ML (0.19-0.49) H 08/17/18 04:35 Arterial Blood Potassium 3.9 mmol/L (3.6-5.2) 08/16/18 19:12 Venous Blood Potassium 3.3 mmol/L (3.6-5.2) L 08/16/18 11:22 Urine Color Huyen (YELLOW) 08/16/18 08:00 Urine Clarity Slighty-cloudy (Clear) 08/16/18 08:00 Urine pH 5.0 (5.0-8.0) 08/16/18 08:00 Ur Specific [place] 1.019 (1.003-1.030) 08/16/18 08:00 Urine Protein 100 mg/dL (NEGATIVE) 08/16/18 08:00 Urine Glucose (UA) Neg mg/dL (Normal) 08/16/18 08:00 Urine Ketones Negative mg/dL (NEGATIVE) 08/16/18 08:00 Urine Blood Small (NEGATIVE) 08/16/18 08:00 Urine Nitrate Negative (NEGATIVE) 08/16/18 08:00 Urine Bilirubin Negative (NEGATIVE) 08/16/18 08:00 Urine Urobilinogen 4.0 mg/dL (0.2-1.0) 08/16/18 08:00 Ur Leukocyte Esterase Neg Candis/uL (Negative) 08/16/18 08:00 Urine Microscopic WBC 3 /hpf (0-5) 08/16/18 08:00 Amikacin Trough <2.5 mg/L (4.0-8.0) L 08/19/18 04:20 Random Gentamicin < 0.6 ug/mL 08/17/18 16:14 Digoxin 0.4 ng/mL (0.8-2.0) L 08/16/18 08:10 Influenza Typ A,B (EIA) Negative for flu a/b (NEGATIVE) 08/16/18 08:10 - Hospital Course Hospital Course: Isidoro Pt is a 62 yo male with PMH of A.fib with RVR, HTN, CHF, DM2, hyperlipidemia, presented to ER due to Epigastric/LUQ pain. In ER patient patient was febrile, tachycardia and lactic acid of 4.6, code sepsis was called, IV abx started, and sepsis workup began. Pt was admitted to Telemetry for further treatment of Sep sis. In the floor patient became afebrile for >24, vitals improved, Sepsis resolved. Patient was workup for Cholesystitis, GI and surgery were consulted and due to A.fib with RVR, patient need to be cleared by cardio before performing Cholecystoctomy, in meanwhile they recommended cholecystostomy tube and start on ABx. Procedure was preformed by IR and Drainage tube was place. Patient received Amikacin, Zosyn 2.25 as per ID recommendation due to a questionable Pneumonia on Chest Xray, he also received Azithromycin 500mg 3 days. Cardio cath was done, found to have 50-70% stenosis in LAD and 50-60% stenosis in OA, Pt is not cleared by cardio currently, and surgery wont be performed until patient is clear. Pt recieved his last IV abx today (10 days) and can be discharged home with cholestemy tube attached. will be taught how to drain tube, and she can drain it at home. Plan discussed with Patient, patient feel comfortable to be Discharged home. CT:Distended gallbladder with cholelithaisis, limited pericholecystic fluid suspected Possible cholecystitis. + R and L diverticula, Enlarge prostate gland and L1 anterior compression fracture, age indeterminate. RUQ US: + Cholecystitis, cholelithiasis and sludge identified within the lumen of gallbladder Chest X-ray: mild-moderate pulmonary vascular congestion, no definite airspace disease b/l. Cardiomegaly not excluded EKG: Afib with RVR Patient seen and examined today at bedside. Patient had no acute event overnight. He slept comfortable and is able to tolerate food with no issue, patient had no complain and want to go home. Patient chart reviewed, Vitals wnl, afebrile >24h, Physical Exam +BS, neg tenderness, lara tube noted with minimal drain. Patient is stable to be discharged Medication Augmentin BID 10 days. Acyclovir for herpes lesion on lips Omeprazole 40mg daily for GI prophylaxis Aspirin 325mg Amlodipine 10mg Digoxin 250mcg Empagliflozin 10mg Metformin 500mg Glimepiride 2mg KCl 20 meq daily Aldactone 25mg Zovirax 500 mg bid Losartan 100mg Lopressor 100mg Q12h Ranexa 500mg BID Xarelto 20mg daily Patient have to follow up with PCP in 1-2 days Patient should follow up with cardiology Follow up with dr Hodges after DC to be seen in 1 week, for further management. * Tube need to be drained daily Discharge Exam - Head Exam Head Exam: ATRAUMATIC, NORMAL INSPECTION, NORMOCEPHALIC - Eye Exam Eye Exam: EOMI, Normal appearance, PERRL Pupil Exam: NORMAL ACCOMODATION, PERRL - Respiratory Exam Respiratory Exam: Clear to PA & Lateral, NORMAL BREATHING PATTERN, UNREMARKABLE - Cardiovascular Exam Cardiovascular Exam: REGULAR RHYTHM, +S1, +S2 - GI/Abdominal Exam GI & Abdominal Exam: Normal Bowel Sounds, Unremarkable Additional comments: Cholestestomy tube noted on RUQ. - Extremities Exam Extremities exam: normal inspection - Back Exam Back exam: NORMAL INSPECTION - Neurological Exam Neurological exam: Alert, Oriented x3 - Psychiatric Exam Psychiatric exam: Normal Affect, Normal Mood - Skin Skin Exam: Dry, Intact, Normal Color, Warm Discharge Plan - Discharge Medications Prescriptions: Amoxicillin/Clavulanate [Augmentin 875 MG-125 MG] 1 tab PO BID 10 Days tab Aspirin 325 mg PO DAILY 30 Days #30 tab Atorvastatin [Lipitor] 20 mg PO HS #30 tab Digoxin 0.125 mg PO DAILY #30 tab Losartan [Cozaar] 100 mg PO DAILY #30 tab Metoprolol Tartrate [Lopressor] 100 mg PO Q12 #60 tab Omeprazole 40 mg PO DAILY #30 capsule. Ranolazine [Ranexa] 500 mg PO BID #60 ter Rivaroxaban [Xarelto] 20 mg PO DAILY #30 tab - Follow Up Plan Condition: GOOD Disposition: HOME/ ROUTINE Instructions: Abscess Drainage, Percutaneous (DC), Cholecystitis (DC) Additional Instructions: drain cholecystostomy tube . Measure daily Follow up at Dr. Hodges' office in 1 wk after DC to schedule to get drain and gallbladder removed. appt with Dr Portillo in 2 wks ff up with Dr Amor amador Hold Metformin x 2 days - pt had IV contrast ( Cardiac cath) Pt and family intructed on [facility] - [facility] Nurse to do home visit Referrals: Oziel Portillo MD [Staff Provider] - Jose Chinchilla MD [Staff Provider] - Emil Gutierrez MD [Staff Provider] - Javon Hodges MD [Staff Provider] - <Aniyah Carcamo - Last Filed: 08/27/18 15:28> Provider - Provider Date of Admission: 08/16/18 10:36 Attending physician: Magali Stanley MD Consults: 08/16/18 10:42 Surgery [General Surgery Consult] Stat Comment: Consulting Provider: Javon Hodges Consulting Physician: Javon Hodges Reason for Consult: acute cholecystitis 08/16/18 10:50 Critical Care Consult Stat Comment: Consulting Provider: Mel Sher Consulting Physician: Mel Sher Reason for Consult: septic shock 08/16/18 10:51 Cardiology Consult Stat Comment: Consulting Provider: Oziel Portillo Consulting Physician: Oziel Portillo Reason for Consult: afib with rvr 08/16/18 10:52 Infectious Disease Consult Stat Comment: Consulting Provider: Adiel Beckwith Consulting Physician: Adiel Beckwith Reason for Consult: septic shock 08/16/18 10:53 Gastroenterology Consult Stat Comment: Consulting Provider: Emil Gutierrez Consulting Physician: Emil Gutierrez Reason for Consult: cholelithiasis 08/17/18 09:00 Case Management Referral Routine Comment: Physician Instructions: Reason For Exam: admission 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 08/16/18 07:50 Blood Blood Culture - Final NO GROWTH AFTER 5 DAYS 08/16/18 07:50 Blood Gram Stain - Final TEST NOT PERFORMED 08/16/18 07:50 Blood Blood Culture - Final NO GROWTH AFTER 5 DAYS 08/16/18 07:50 Blood Gram Stain - Final TEST NOT PERFORMED 08/16/18 18:11 Nose MRSA Culture (Admit) - Final MRSA NOT DETECTED 08/16/18 08:00 Urine,Clean Catch Urine Culture - Final <10,000 CFU/ML. MULTIPLE SPECIES. PROBABLE CONTAMINATION. Most Recent Lab Values WBC 10.0 K/uL (4.8-10.8) 08/27/18 05:45 RBC 4.63 Mil/uL (4.40-5.90) 08/27/18 05:45 Hgb 13.3 g/dL (12.0-18.0) 08/27/18 05:45 Hct 39.8 % (35.0-51.0) 08/27/18 05:45 MCV 86.0 fl (80.0-94.0) 08/27/18 05:45 MCH 28.8 pg (27.0-31.0) 08/27/18 05:45 MCHC 33.5 g/dL (33.0-37.0) 08/27/18 05:45 RDW 16.0 % (11.5-14.5) H 08/27/18 05:45 Plt Count 348 K/uL (130-400) 08/27/18 05:45 MPV 9.3 fl (7.2-11.7) 08/19/18 04:20 Neut % (Auto) 67.6 % (50.0-75.0) 08/19/18 04:20 Lymph % (Auto) 15.4 % (20.0-40.0) L 08/19/18 04:20 [place] % (Auto) 13.5 % (0.0-10.0) H 08/19/18 04:20 Eos % (Auto) 3.0 % (0.0-4.0) 08/19/18 04:20 Baso % (Auto) 0.5 % (0.0-2.0) 08/19/18 04:20 Neut # (Auto) 3.8 K/uL (1.8-7.0) 08/19/18 04:20 Lymph # (Auto) 0.9 K/uL (1.0-4.3) L 08/19/18 04:20 [place] # (Auto) 0.8 K/uL (0.0-0.8) 08/19/18 04:20 Eos # (Auto) 0.2 K/uL (0.0-0.7) 08/19/18 04:20 Baso # (Auto) 0.0 K/uL (0.0-0.2) 08/19/18 04:20 Neutrophils % (Manual) 79 % (42-75) H 08/18/18 04:30 Lymphocytes % (Manual) 12 % (20-50) L 08/18/18 04:30 Reactive Lymphs % 1 % (0-0) H 08/18/18 04:30 Monocytes % (Manual) 8 % (0-10) 08/18/18 04:30 Platelet Estimate Normal (NORMAL) 08/18/18 04:30 Large Platelets Present 08/18/18 04:30 Anisocytosis (manual) Slight 08/18/18 04:30 Ovalocytes Slight 08/18/18 04:30 ESR 33 mm/hr (0-20) H 08/17/18 04:35 PT 14.3 Seconds (9.8-13.1) H 08/26/18 05:25 INR 1.3 08/26/18 05:25 APTT 37.1 Seconds (25.6-37.1) 08/24/18 16:46 pCO2 34 mm/Hg (35-45) L 08/16/18 19:12 pO2 64 mm/Hg (80-100) L 08/16/18 19:12 HCO3 24.9 mmol/L (21-28) 08/16/18 19:12 ABG pH 7.45 (7.35-7.45) 08/16/18 19:12 ABG Total CO2 24.6 mmol/L (22-28) 08/16/18 19:12 ABG O2 Saturation 95.5 % (95-98) 08/16/18 19:12 ABG Base Excess 0.1 mmol/L (-2.0-3.0) 08/16/18 19:12 Jamie Test Yes 08/16/18 19:12 ABG Potassium 3.9 mmol/L (3.6-5.2) 08/16/18 19:12 VBG pH 7.45 (7.32-7.43) H 08/16/18 11:22 VBG pCO2 35 mmHg (40-60) L 08/16/18 11:22 VBG HCO3 25.3 mmol/L 08/16/18 11:22 VBG Total CO2 25.4 mmol/L (22-28) 08/16/18 11:22 VBG O2 Sat (Calc) 92.9 % (40-65) H 08/16/18 11:22 VBG Base Excess 0.7 mmol/L (0.0-2.0) 08/16/18 11:22 VBG Potassium 3.3 mmol/L (3.6-5.2) L 08/16/18 11:22 A-a O2 Difference 93.0 mm/Hg 08/16/18 19:12 Sodium 133.0 mmol/L (132-148) 08/16/18 19:12 Chloride 100.0 mmol/L (98-107) 08/16/18 19:12 Glucose 170 mg/dL (75-110) H 08/16/18 19:12 Lactate 2.5 mmol/L (0.7-2.1) H 08/16/18 19:12 Vent Mode N/c 08/16/18 19:12 FiO2 28.0 % 08/16/18 19:12 Blood Gas Comments Lac=2.9 08/16/18 14:19 Crit Value Called To toribio Ray 08/16/18 14:19 Crit Value Called By 22 08/16/18 14:19 Crit Value Read Back Y 08/16/18 14:19 Blood Gas Notified Time 1425 08/16/18 14:19 Sodium 135 mmol/l (132-148) 08/27/18 05:45 Potassium 4.8 MMOL/L (3.6-5.0) 08/27/18 05:45 Chloride 103 mmol/L (98-107) 08/27/18 05:45 Carbon Dioxide 24 mmol/L (22-30) 08/27/18 05:45 Anion Gap 13 (10-20) 08/27/18 05:45 BUN 21 mg/dl (9-20) H 08/27/18 05:45 Creatinine 1.3 mg/dl (0.8-1.5) 08/27/18 05:45 Est GFR ( Amer) > 60 08/27/18 05:45 Est GFR (Non-Af Amer) 56 08/27/18 05:45 POC Glucose (mg/dL) 134 mg/dL (65-110) H 08/27/18 05:04 Random Glucose 137 mg/dL (75-110) H 08/27/18 05:45 Lactic Acid 0.8 MMOL/L (0.7-2.1) 08/17/18 04:35 Calcium 8.7 mg/dL (8.4-10.2) 08/27/18 05:45 Phosphorus 4.6 mg/dl (2.5-4.5) H 08/24/18 05:09 Magnesium 1.8 MG/DL (1.6-2.3) 08/24/18 05:09 Total Bilirubin 2.0 mg/dl (0.2-1.3) H 08/24/18 05:09 Direct Bilirubin 5.2 mg/ml (0.0-0.4) H 08/17/18 07:08 AST 44 U/L (17-59) 08/24/18 05:09 ALT 52 U/L (21-72) 08/24/18 05:09 Alkaline Phosphatase 270 U/L (38-126) H 08/24/18 05:09 Troponin I 0.0150 ng/mL (0.00-0.120) 08/16/18 07:50 NT-Pro-B Natriuret Pep 1900 pg/ml (0-900) H 08/16/18 07:50 Total Protein 7.9 G/DL (6.3-8.2) 08/24/18 05:09 Albumin 3.7 g/dL (3.5-5.0) 08/24/18 05:09 Globulin 4.2 gm/dL (2.2-3.9) H 08/24/18 05:09 Albumin/Globulin Ratio 0.9 (1.0-2.1) L 08/24/18 05:09 Lipase 105 U/L (23-300) 08/16/18 07:50 Procalcitonin 53.48 NG/ML (0.19-0.49) H 08/17/18 04:35 Arterial Blood Potassium 3.9 mmol/L (3.6-5.2) 08/16/18 19:12 Venous Blood Potassium 3.3 mmol/L (3.6-5.2) L 08/16/18 11:22 Urine Color Huyen (YELLOW) 08/16/18 08:00 Urine Clarity Slighty-cloudy (Clear) 08/16/18 08:00 Urine pH 5.0 (5.0-8.0) 08/16/18 08:00 Ur Specific Garfield 1.019 (1.003-1.030) 08/16/18 08:00 Urine Protein 100 mg/dL (NEGATIVE) 08/16/18 08:00 Urine Glucose (UA) Neg mg/dL (Normal) 08/16/18 08:00 Urine Ketones Negative mg/dL (NEGATIVE) 08/16/18 08:00 Urine Blood Small (NEGATIVE) 08/16/18 08:00 Urine Nitrate Negative (NEGATIVE) 08/16/18 08:00 Urine Bilirubin Negative (NEGATIVE) 08/16/18 08:00 Urine Urobilinogen 4.0 mg/dL (0.2-1.0) 08/16/18 08:00 Ur Leukocyte Esterase Neg Candis/uL (Negative) 08/16/18 08:00 Urine Microscopic WBC 3 /hpf (0-5) 08/16/18 08:00 Amikacin Trough <2.5 mg/L (4.0-8.0) L 08/19/18 04:20 Random Gentamicin < 0.6 ug/mL 08/17/18 16:14 Digoxin 0.4 ng/mL (0.8-2.0) L 08/16/18 08:10 Influenza Typ A,B (EIA) Negative for flu a/b (NEGATIVE) 08/16/18 08:10 Attending/Attestation - Attestation I have personally seen and examined this patient.: Yes I have fully participated in the care of the patient.: Yes I have reviewed all pertinent clinical information, including history, physical exam and plan: Yes Notes (Text): (1) Sepsis sec to Acute cholecystitis completed 10 days of IV Amikacin and Zosyn Discussed with Dr Beckwith - rylie to d/c pt on PO Augmentin 875 mg bid Pt will be d/c w/ Cholecystostomy tube - Zack RN will visit pt . Pt and family also instructed on proper care Pt to ff up with Dr Greenberg next for ff up and to check when tube will be d/c and fo schedule of Cholecystectomy (2) Atrial fibrillation with RVR cont Xarelto, BB, Digoxin (3) CHF (congestive heart failure), Chronic systolic dysfunction, EF 45% cont Aldactone , ARB, BB 4. CAD s/p Cardiac cath - optimize pt prior to Surgery ( Cholecystectomy ) - cont ASA, Xarelto, BB, ARB, statin, Ranexa ff up with Dr Portillo in 1-2 wks 08/27/18 15:27 5. Acute Kideney injury, likely ATN, resolved
[2018-08-27 16:32] VITALS: BP 128/78; PULSE 50; RESP 18; TEMP 98; O2SAT 96
== END 2018-08-27 18:15 | disposition home health service (06) | DRG 871 ==
LOC: H.ER 07:01 → H.ERHOLD 10:36 → H.ICU/CCU 15:24 → H.MEDSURG1 08-20 22:15
PROVIDERS: ADMIT Hospitalist; ATTEND Hospitalist
PROC: 3E02340 Introduction of Influenza Vaccine into Muscle, Percutaneous Approach (ICD-10-PCS; 2018-08-16)
PROC: 3E0234Z Introduction of Serum, Toxoid and Vaccine into Muscle, Percutaneous Approach (ICD-10-PCS; 2018-08-16)
PROC: 0F9430Z Drainage of Gallbladder with Drainage Device, Percutaneous Approach (ICD-10-PCS; principal; 2018-08-17 12:00)
PROC: 02HV33Z Insertion of Infusion Device into Superior Vena Cava, Percutaneous Approach (ICD-10-PCS; 2018-08-21)
PROC: B518ZZA Fluoroscopy of Superior Vena Cava, Guidance (ICD-10-PCS; 2018-08-21)
PROC: B548ZZA Ultrasonography of Superior Vena Cava, Guidance (ICD-10-PCS; 2018-08-21)
PROC: 3E04329 Introduction of Other Anti-infective into Central Vein, Percutaneous Approach (ICD-10-PCS; 2018-08-21)
PROC: 4A023N7 Measurement of Cardiac Sampling and Pressure, Left Heart, Percutaneous Approach (ICD-10-PCS; 2018-08-26)
PROC: B206YZZ Plain Radiography of Right and Left Heart using Other Contrast (ICD-10-PCS; 2018-08-26)
DX: A41.9 Sepsis, unspecified organism (principal); N17.0 Acute kidney failure with tubular necrosis; R65.21 Severe sepsis with septic shock; K80.00 Calculus of gallbladder with acute cholecystitis without obstruction; J18.9 Pneumonia, unspecified organism; I50.42 Chronic combined systolic (congestive) and diastolic (congestive) heart failure; I11.0 Hypertensive heart disease with heart failure; I25.10 Atherosclerotic heart disease of native coronary artery without angina pectoris; I48.2 Chronic atrial fibrillation; E11.649 Type 2 diabetes mellitus with hypoglycemia without coma; B00.1 Herpesviral vesicular dermatitis; E78.5 Hyperlipidemia, unspecified; E78.00 Pure hypercholesterolemia, unspecified; N40.0 Benign prostatic hyperplasia without lower urinary tract symptoms; E66.9 Obesity, unspecified; Z68.37 Body mass index [BMI] 37.0-37.9, adult; Z23 Encounter for immunization; Z79.01 Long term (current) use of anticoagulants